=== PATIENT | male | born 1940 | race Caucasian/White ===

== ENCOUNTER 2016-09-05 17:01 | Inpatient (IN) ==
[2016-09-05] MEDS ORDERED: Ipratropium/Albuterol Neb 3 ML IH ONE ×2 (17:09→18:02)
[2016-09-05] MEDS ORDERED: methylPREDNISolone 125 MG/2 ML VIAL IVP ONE (17:09)
--- NOTE | 2016-09-05 17:11 | Emergency Department Note ---
Disposition Clinical Impression: Acute exacerbation of chronic obstructive airways disease Disposition: Admitted As Inpatient Condition: Good Referrals: Tommie Srivastava DO [Primary Care Provider] - Time of Disposition: 18:00 SOB HPI - General Stated Complaint: RONAL Time Seen by Provider: 09/05/16 17:06 Source: patient Mode of arrival: ambulatory Limitations: no limitations Nursing Notes Reviewed: Yes Vital Signs Reviewed: Yes - History of Present Illness 75-year-old with a history of COPD/asthma comes in with increasing shortness of breath since yesterday. Patient is audibly wheezing on arrival. states that she thinks he may have some CHF. Most recent echo was reviewed with EF of 60%. Pt Subjective Complaint: shortness of breath, cough Onset (ago): day(s) (1) Severity: moderate Consistency/Duration: constant Improves with: nothing Worsens with: exertion Known history of: COPD, asthma Associated symptoms: Reports: cough, wheezing Treatment prior to arrival: none Cough present: Yes Cough Description: Involuntary Cough Frequency: Intermittent - Related Data Home Medications Medication Instructions Recorded Confirmed Aspirin 81 mg PO DAILY 12/15/15 04/04/16 Carvedilol 12.5 mg PO BID 12/15/15 04/04/16 Citalopram Hydrobromide 40 mg PO DAILY 12/15/15 04/04/16 [Citalopram HBr] Gabapentin [Neurontin] 300 mg PO TID 12/15/15 04/04/16 Isosorbide MONOnitrate (24 HR) 60 mg PO DAILY 12/15/15 04/04/16 [Imdur] Lisinopril [Zestril] 15 mg PO DAILY 12/15/15 04/04/16 Lovastatin [Mevacor] 20 mg PO DAILY 12/15/15 04/04/16 Oxycodone HCl [Roxicodone 30 MG 30 mg PO QID 12/15/15 04/04/16 Immed Release] Pantoprazole Sodium 40 mg PO DAILY 12/15/15 04/04/16 Albuterol Neb [Proventil Neb] 2.5 mg IH TID PRN 04/04/16 04/04/16 Albuterol Sulfate [Ventolin Hfa] 2 puff IH Q4H PRN 04/04/16 04/04/16 Alprazolam 2 mg PO BID 04/04/16 04/04/16 Beclomethasone Diprop 40mcg [QVAR 1 puff IH BID 04/04/16 04/04/16 40 mcg] Omeprazole [PriLOSEC] 40 mg PO DAILY 04/04/16 04/04/16 Previous Rx's Medication Instructions Recorded Hydralazine HCl 50 mg PO TID #90 tablet 04/04/16 Diazepam [Valium] 5 mg PO TID #15 tablet 04/06/16 PredniSONE 60 mg PO DAILY #18 tablet 04/06/16 Allergies Allergy/AdvReac Type Severity Reaction Status Date / Time tetanus toxoid, adsorbed Allergy Swelling Verified 04/15/16 13:16 of Lip/Tongue/Throat Constitutional: Denies: fever, chills, weakness, weight change Eyes: Denies: eye pain, eye discharge, vision change ENT ED: Denies: ear pain, throat pain, dental pain, hearing loss, epistaxis, congestion, dysphagia Cardiovascular: Denies: chest pain, palpitations, dyspnea on exertion, edema, syncope Respiratory: Reports: cough, dyspnea. Denies: wheezes, hemoptysis, stridor Gastrointestinal: Denies: abdominal pain, nausea, vomiting, diarrhea, constipation, hematemesis, melena, hematochezia Genitourinary: Denies: urgency, dysuria, frequency, hematuria Musculoskeletal: Denies: back pain, neck pain, arthralgia, myalgia Integumentary: Denies: rash, abrasion, lesions Neurological: Denies: headache, weakness, numbness, paresthesias, confusion, abnormal gait, vertigo Psychiatric: Denies: anxiety, depression, suicidal thoughts, homicidal thoughts , auditory hallucinations, visual hallucinations Endocrine: Denies: fatigue Hematological/Lymphatic: Denies: easy bleeding, easy bruising Allergic/Immunologic: Denies: facial swelling, urticaria Past Medical History - Past Medical History Medical history: Reports: asthma, coronary artery disease, hypertension, myocardial infarction, other Surgical history: Reports: cholecystectomy Psychiatric history: Reports: no psych history - Social History Smoking Status: Former smoker Smokeless Tobacco Status: No Alcohol use: Reports: none Drug use: Reports: none Physical Exam - General Limitations: no limitations General appearance: alert, in no apparent distress - Head Head exam: atraumatic, normocephalic, normal inspection - Eye Eye exam: Present: normal appearance, PERRL, EOMI - ENT ENT exam: normal exam, normal oropharynx, mucous membranes moist - Neck Neck exam: Present: normal inspection, full ROM, trachea midline - Chest Chest inspection: Present: normal inspection, symmetric chest wall rise - Respiratory Respiratory exam: Present: wheezes, accessory muscle use, prolonged expiratory phase - Cardiovascular Cardiovascular exam: Present: regular rate, normal rhythm, normal heart sounds - Abdominal Exam Abdominal exam: Present: soft, Non-Tender. Absent: tenderness, distention, guarding, rebound, rigidity - Extremities Exam Extremities exam: Present: normal inspection, full ROM. Absent: tenderness, pedal edema - Expanded Lower Extremity Exam Gait: observed and normal - Back Exam Back exam: Present: normal inspection, full ROM. Absent: tenderness - Neurological Exam Neurological exam: Present: alert, oriented X3 - Psychiatric Psychiatric exam: Present: normal affect, normal mood - Skin Skin exam: Present: warm, dry, intact, normal color Course - Consultations Consultation #1: Discussed with Dr. Roe, admit. Time: 18:03 Vital Signs Respiratory Rate 18 09/05/16 17:16 Blood Pressure 152/77 09/05/16 17:16 O2 Sat by Pulse Oximetry 100 09/05/16 17:16 Temperature 99.0 F 09/05/16 17:29 Pulse Rate 70 09/05/16 17:34 Respiratory Rate 20 09/05/16 17:34 Blood Pressure 140/61 09/05/16 17:34 O2 Sat by Pulse Oximetry 98 09/05/16 17:34 Oxygen Delivery Oxygen Delivery Nasal Cannula Shortness of Breath/Dyspnea - Lab Data Result diagrams: 09/05/16 17:18 09/05/16 17:18 Lab Results 09/05/16 09/05/16 09/05/16 Range/Units 17:18 17:18 17:18 WBC 9.9 (4.3-11.1) K/mcL RBC 3.75 L (4.19-5.50) M/mcL Hgb 10.6 L (12.9-16.9) g/dL Hct 31.6 L (37.5-50.1) % MCV 84.3 (83.0-100.0) fL MCH 28.3 (28.0-33.3) pg MCHC 33.5 (31.6-35.5) g/dL RDW 13.2 (11.5-14.5) % Plt Count 126 L (140-400) K/mcL MPV 8.7 L (9.4-12.4) fL Immature Gran % 0.7 (0-4) % Seg Neutrophils % 77.4 % Lymphocytes % 10.1 % Monocytes % 9.8 % Eosinophils % 1.8 % Basophils % 0.2 % Neutrophils # 7.7 (1.6-8.9) K/mcL Lymphocytes # 1.0 (0.6-4.6) K/mcL Monocytes # 1.0 (0.0-1.3) K/mcL Eosinophils # 0.2 (0.0-0.6) K/mcL Basophils # 0.0 (0.0-0.2) K/mcL PT 12.9 H (9.4-12.1) Seconds INR 1.2 APTT 27.1 (26.0-36.0) Seconds Sodium 140 (136-145) mEq/L Potassium 4.5 (3.5-4.5) mEq/L Chloride 107 (98-109) mEq/L Carbon Dioxide 27 (19-29) mEq/L BUN 15 (8-26) mg/dL Creatinine 1.74 H (0.72-1.25) mg/dL Est GFR ( Amer) 46 L (> 60) Est GFR (Non-Af Amer) 38 L (> 60) BUN/Creatinine Ratio 9 (6-26) Glucose 103 H (70-99) mg/dL Calculated Osmolality 291 (280-300) Calcium 9.1 (8.6-10.8) mg/dL Troponin I (0-0.03) ng/mL B-Natriuretic Peptide (0-100) pg/mL 09/05/16 09/05/16 Range/Units 17:18 17:18 WBC (4.3-11.1) K/mcL RBC (4.19-5.50) M/mcL Hgb (12.9-16.9) g/dL Hct (37.5-50.1) % MCV (83.0-100.0) fL MCH (28.0-33.3) pg MCHC (31.6-35.5) g/dL RDW (11.5-14.5) % Plt Count (140-400) K/mcL MPV (9.4-12.4) fL Immature Gran % (0-4) % Seg Neutrophils % % Lymphocytes % % Monocytes % % Eosinophils % % Basophils % % Neutrophils # (1.6-8.9) K/mcL Lymphocytes # (0.6-4.6) K/mcL Monocytes # (0.0-1.3) K/mcL Eosinophils # (0.0-0.6) K/mcL Basophils # (0.0-0.2) K/mcL PT (9.4-12.1) Seconds INR APTT (26.0-36.0) Seconds Sodium (136-145) mEq/L Potassium (3.5-4.5) mEq/L Chloride (98-109) mEq/L Carbon Dioxide (19-29) mEq/L BUN (8-26) mg/dL Creatinine (0.72-1.25) mg/dL Est GFR ( Amer) (> 60) Est GFR (Non-Af Amer) (> 60) BUN/Creatinine Ratio (6-26) Glucose (70-99) mg/dL Calculated Osmolality (280-300) Calcium (8.6-10.8) mg/dL Troponin I 0.01 (0-0.03) ng/mL B-Natriuretic Peptide 241 H (0-100) pg/mL - EKG Data EKG attestation: Yes I reviewed and interpreted this EKG. EKG shows normal: Reports: sinus rhythm Rate: Reports: normal Rhythm: Reports: NSR Interpretation: Reports: no acute changes
[2016-09-05 17:30] LABS: Basophils % 0.2 %; Eosinophils # 0.2 K/mcL (0.0-0.6); Eosinophils % 1.8 %; Hematocrit 31.6 % (37.5-50.1); Hemoglobin 10.6 g/dL (12.9-16.9); INR 1.2; Immature Granulocytes % 0.7 % (0-4); Lymphocytes % 10.1 %; Mean Corpuscular HGB Conc 33.5 g/dL (31.6-35.5); Mean Corpuscular Hemoglobin 28.3 pg (28.0-33.3); Mean Corpuscular Volume 84.3 fL (83.0-100.0); Mean Platelet Volume 8.7 fL (9.4-12.4); Monocytes % 9.8 %; Neutrophils # 7.7 K/mcL (1.6-8.9); Platelet Count 126 K/mcL (140-400); Prothrombin Time 12.9 Seconds (9.4-12.1); Red Blood Count 3.75 M/mcL (4.19-5.50); Red Cell Distribution Width 13.2 % (11.5-14.5); Segmented Neutrophils % 77.4 %
[2016-09-05 17:33] LABS: Activated Partial Thrombo Time 27.1 Seconds (26.0-36.0)
[2016-09-05 17:37] LABS: Calcium 9.1 mg/dL (8.6-10.8); Potassium 4.5 mEq/L (3.5-4.5)
[2016-09-05] MEDS ORDERED: Naloxone 0.4 MG/ML INJ IVP PRN (20:24)
[2016-09-05] MEDS ORDERED: Acetaminophen 325 MG TABLET PO PRN (20:24)
[2016-09-05] MEDS ORDERED: Ondansetron ODT 4 MG TAB.RAPDIS SL PRN (20:24)
[2016-09-05] MEDS ORDERED: Albuterol 2.5 MG/3 ML NEBULIZER IH PRN (20:29)
[2016-09-05] MEDS ORDERED: 0.9 % Sodium Chloride 1,000 ML IVC SCH ×2 (20:30→22:15)
--- NOTE | 2016-09-05 20:38 | Internal Med History&Physical ---
Date of Encounter: 09/05/16 Time of Encounter: 20:00 Assessment and Plan (1) Acute exacerbation of chronic obstructive airways disease Current visit: Yes Status: Acute Patient had pulmonary function test performed in 2014 which showed obstructive pattern with significant bronchodilator response, indicating that he has asthma rather than COPD We will continue to support with supplemental oxygen, steroids at 60q6hr, breathing treatments as scheduled (2) Acute bronchitis Current visit: Yes Status: Acute We will start patient on Levaquin 500 milligrams by mouth daily Likely cause of his mild hemoptysis due to severe cough Support with antitussives Qualifiers: Qualified Code(s): J20.9 - Acute bronchitis, unspecified (3) HTN (hypertension) Current visit: No Status: Chronic Continue with home dose of lisinopril, Coreg, hydralazine Monitor vitals closely Qualifiers: Hypertension type: essential hypertension Qualified Code(s): I10 - Essential (primary) hypertension (4) Anemia of chronic disease Current visit: Yes Status: Chronic He is close to his baseline hemoglobin around 11, no indication for transfusion at this time Possible secondary to chronic kidney disease Obtain iron panel including ferritin tomorrow morning (5) CKD (chronic kidney disease) stage 3, GFR 30-59 ml/min Current visit: No Status: Chronic Creatinine at presentation was 1.74, baseline is around 1.5 therefore he does not meet criteria for LEE ANN We will continue with his lisinopril and hydrate gently with 60 ml/hr for 12 hours (6) CAD (coronary artery disease) Current visit: No Status: Chronic Continue patient on home Coreg, Imdur, aspirin and lisinopril Qualifiers: Coronary Disease-Associated Artery/Lesion type: [place] artery [place] vs. transplanted heart: [place] heart Associated angina: angina presence unspecified Qualified Code(s): I25.10 - Atherosclerotic heart disease of [place] coronary artery without angina pectoris (7) DVT prophylaxis Current visit: Yes Status: Acute Heparin 5000 units subcutaneous twice a day We will monitor for additional episodes of hemoptysis while on heparin Internal Medicine - H&P: HPI Chief complaint: shortness of breath Admitted From: Home Plans for Post Hospital Care: Home History of present illness: Mr. Thrasher is a 75 year old male who presents with shortness of breath started when he woke up yesterday has been worsening. He states that the shortness of breath is worse with exertion and is minimally relieved with his rescue inhalers. He states that he has been feeling sick over the past 4-5 days has been having productive cough with green sputum, and has upper abdominal pain during coughing episodes. He also notes minimal blood-tinged sputum that started today, and reports having an "esophageal tear" roughly 1 year ago when he was in [place] which required surgical intervention. Patient's significant other is at bedside and confirms that there is questionable history of congestive heart failure. He did have a echocardiogram done last March which showed preserved EF 60% with mild diastolic dysfunction but he is not on any diuretics at home. He also has a history of CAD stage III but has not seen his orange picker, Dr. Lezama in a few years. He admits that his appetite has been poor and he has had associated nausea and vomiting over the past several days. Past Med Surg Social Fam HX - Past Medical History Medical history: asthma, coronary artery disease, hypertension, myocardial infarction, other Psychiatric history: no psych history - Past Surgical History Surgical History: cholecystectomy - Social History Smoking Status: Former smoker Smokeless Tobacco Status: No Alcohol use: none Drug use: none - Family History Brother Adopted: No Age: 63 Living Status: Hx Family Cancer: Yes (liver with mets) Internal Medicine - H&P: Meds Aspirin 81 mg PO DAILY 12/15/15 [History] Carvedilol 12.5 mg PO BID 12/15/15 [History] Citalopram Hydrobromide [Citalopram HBr] 40 mg PO DAILY 12/15/15 [History] Gabapentin [Neurontin] 300 mg PO TID 12/15/15 [History] Isosorbide MONOnitrate (24 HR) [Imdur] 60 mg PO DAILY 12/15/15 [History] Lisinopril [Zestril] 15 mg PO DAILY 12/15/15 [History] Lovastatin [Mevacor] 20 mg PO DAILY 12/15/15 [History] Oxycodone HCl [Roxicodone 30 MG Immed Release] 30 mg PO QID 12/15/15 [History] Pantoprazole Sodium 40 mg PO DAILY 12/15/15 [History] Albuterol Neb [Proventil Neb] 2.5 mg IH TID PRN 04/04/16 [History] Albuterol Sulfate [Ventolin Hfa] 2 puff IH Q4H PRN 04/04/16 [History] Alprazolam 2 mg PO BID 04/04/16 [History] Beclomethasone Diprop 40mcg [QVAR 40 mcg] 1 puff IH BID 04/04/16 [History] Hydralazine HCl 50 mg PO TID #90 tablet 04/04/16 [Rx] Omeprazole [PriLOSEC] 40 mg PO DAILY 04/04/16 [History] PredniSONE 60 mg PO DAILY #18 tablet 04/06/16 [Rx] Allergies tetanus toxoid, adsorbed Allergy (Verified 04/15/16 13:16) Swelling of Lip/Tongue/Throat All Systems PM: A 10-system review of systems was performed and is negative for pertinent findings except as documented above in the HPI. - Constitutional Constitutional: no chills, no fever(s), no night sweats - EENT Eyes: no change in vision, no discharge, no photophobia Ears: no ear discharge, no ear pain, no tinnitus Nose, mouth and throat: no dysphagia, no nasal discharge, no neck pain, no sore throat - Cardiovascular Cardiovascular ROS IM: dyspnea, dyspnea on exertion, edema, irregular heart rhythm, no chest pain, no diaphoresis, no lightheadedness, no palpitations, no syncope - Respiratory Respiratory: cough, hemoptysis, dyspnea on exertion, wheezing, excessive phlegm production, change in phlegm color, pain with cough, no dyspnea - Gastrointestinal Gastrointestinal: abdominal pain, nausea, vomiting, no diarrhea, no hematemesis , no hematochezia, no melena - Genitourinary Genitourinary ROS male: no urinary frequency, no urinary hesitancy - Musculoskeletal Musculoskeletal ROS IM: back pain (chronic), no numbness, no tingling - Integumentary Integumentary IM: no rash, no unusual bruising - Neurological Neurological ROS: no confusion, no convulsions, no focal weakness, no numbness, no tingling, no tremor(s) - Hematologic/Lymphatic Hematologic/Lymphatic: no easy bruising - Constitutional Vitals: Temp Pulse Resp BP Pulse Ox 99.0 F 71 18 154/76 98 09/05/16 17:29 09/05/16 18:15 09/05/16 19:01 09/05/16 19:01 09/05/16 18:15 General appearance: Present: cooperative, no acute distress, obese, answers questions appropriately - Head Head exam: Present: atraumatic, normocephalic - Eye Eye exam: Present: PERRL, conjuntiva pink, sclera anicteric - Neck Neck exam general surgery: Present: supple, trachea midline. Absent: lymphadenopathy - Respiratory Respiratory exam: Present: wheezes (diffusely). Absent: accessory muscle use, rales, rhonchi - Cardiovascular Cardiovascular exam: Present: RRR, +S1, +S2. Absent: diastolic murmur, gallop, rubs, systolic murmur - GI/Abdominal GI/Abdominal exam: Present: normal bowel sounds, soft, tenderness (epigastric), no peritoneal signs. Absent: distended, guarding, rigid - Extremities Exam Extremities exam: Present: tenderness, warm, radial pulses palpable and symetrical. Absent: calf tenderness, cyanotic, pedal edema (he is wearing compression socks) - Neurological Exam Neurological exam: Present: alert, no focal deficits. Absent: facial droop, speech deficit - Skin Skin exam: Present: dry, intact Internal Med - H&P Results - Labs CBC & Chem 7: 09/05/16 17:18 09/05/16 17:18
[2016-09-05] MEDS: hydrALAZINE 25 MG TABLET PO SCH (21:29)
[2016-09-05] MEDS: *HR* OxyCODONE Immed Rel 15 MG TABLET PO SCH (21:30)
[2016-09-05] MEDS: ALPRAZolam 1 MG TABLET PO SCH (21:30)
[2016-09-05] MEDS: Gabapentin 300 MG CAPSULE PO SCH (21:30)
[2016-09-05] MEDS ORDERED: Benzonatate 100 MG CAPSULE PO PRN (22:20)
[2016-09-05] MEDS: Beclomethasone 40mcg MDI IH SCH (23:13)
[2016-09-05] MEDS: Budesonide/Formoterol 160/4.5 MDI IH SCH (23:14)
[2016-09-05] MEDS: Ipratropium/Albuterol Neb 3 ML IH SCH (23:14)
[2016-09-06] MEDS ORDERED: methylPREDNISolone 125 MG/2 ML VIAL IVP SCH
[2016-09-06] MEDS: methylPREDNISolone 125 MG/2 ML VIAL IVP SCH ×5 (00:21→22:41)
--- NOTE | 2016-09-06 03:51 | Event Note ---
Date of Encounter: 09/06/16 Time of Encounter: 03:50 Patient seen and examined with medical driver. Acute bronchitis and acute asthma exacerbation. IV steroids [id number] breathing treatments and Levaquin. He is not requiring any oxygen. observation addition
[2016-09-06] MEDS: Ipratropium/Albuterol Neb 3 ML IH SCH ×6 (04:36→23:39)
[2016-09-06] MEDS ORDERED: Pantoprazole 40 MG VIAL IVP SCH (06:30)
[2016-09-06 06:34] LABS: Hematocrit 32.8 % (37.5-50.1); Hemoglobin 10.5 g/dL (12.9-16.9); Immature Granulocytes % 0.7 % (0-4); Lymphocytes # 0.4 K/mcL (0.6-4.6); Lymphocytes % 4.9 %; Mean Corpuscular Hemoglobin 27.6 pg (28.0-33.3); Mean Corpuscular Volume 86.3 fL (83.0-100.0); Mean Platelet Volume 9.3 fL (9.4-12.4); Monocytes # 0.1 K/mcL (0.0-1.3); Monocytes % 0.6 %; Neutrophils # 7.8 K/mcL (1.6-8.9); Platelet Count 120 K/mcL (140-400); Red Cell Distribution Width 13.4 % (11.5-14.5); Segmented Neutrophils % 93.8 %
[2016-09-06 06:48] LABS: Albumin 3.6 g/dL (3.5-5.0); Albumin/Globulin Ratio 1.1 (1.1-2.2); Bilirubin,Total 0.3 mg/dL (0.2-1.2); Calcium 8.6 mg/dL (8.6-10.8); Globulin 3.3 g/dL (2.4-3.5); Potassium 5.5 mEq/L (3.5-4.5); Total Protein 6.9 g/dL (6.0-8.3)
[2016-09-06] MEDS ORDERED: Aspirin 81 MG TAB.CHEW PO SCH (09:00)
[2016-09-06] MEDS ORDERED: levoFLOXacin 500 MG TABLET PO SCH (09:00)
[2016-09-06] MEDS: Gabapentin 300 MG CAPSULE PO SCH (09:20)
[2016-09-06] MEDS: *HR* OxyCODONE Immed Rel 15 MG TABLET PO SCH ×2 (09:20→12:54)
[2016-09-06] MEDS: ALPRAZolam 1 MG TABLET PO SCH ×2 (09:20→21:24)
[2016-09-06] MEDS: Isosorbide MONOnitrate (24 HR) 60 MG TAB.ER.24H PO SCH (09:20)
[2016-09-06] MEDS: hydrALAZINE 25 MG TABLET PO SCH ×3 (09:21→21:23)
[2016-09-06] MEDS: *HR* Heparin 5,000 UNIT/ML VIAL SQ SCH ×2 (09:21→18:28)
[2016-09-06] MEDS: Budesonide/Formoterol 160/4.5 MDI IH SCH (10:56)
[2016-09-06] MEDS: Beclomethasone 40mcg MDI IH SCH (10:57)
--- NOTE | 2016-09-06 13:04 | Nephrology Consult Note ---
Date of Encounter: 09/06/16 Time of Encounter: 13:02 Assessment and Plan (1) Acute kidney failure, unspecified Current Visit: Yes Status: Acute Patient has acute kidney injury superimposed on stage III chronic kidney disease. This is in the setting of acute asthmatic bronchitis nausea and vomiting at home as well as decreased oral intake. He continues to take lisinopril while he was sick. I suspect that his AK eyes related to volume depletion in the setting of an acute illness. I would recommend leaving him off the lisinopril and providing him with IV fluids. He does have some difficulty in emptying his bladder so we will check a renal ultrasound as well as postvoid residual of the bladder. Nephrotoxins should be avoided. Patient does have underlying stage III chronic kidney disease related to hypertension and nephrosclerosis. Qualifiers: Acute renal failure type: unspecified Qualified Code(s): N17.9 - Acute kidney failure, unspecified (2) Acute bronchitis Current Visit: Yes Status: Acute Qualifiers: Qualified Code(s): J20.9 - Acute bronchitis, unspecified (3) CKD (chronic kidney disease) stage 3, GFR 30-59 ml/min Current Visit: No Status: Chronic (4) HTN (hypertension) Current Visit: No Status: Chronic Qualifiers: Hypertension type: essential hypertension Qualified Code(s): I10 - Essential (primary) hypertension History of Present Illness - History of Present Illness This is a 75-year-old male with a history of stage III chronic kidney disease. Patient was admitted after a one-week history of shortness of breath cough and sputum production. He has been diagnosed with asthma in acute bronchitis. He has been noted to have a worsening of his serum creatinine since she has been here in the hospital. Patient reports that over the past week or so he has had nausea and vomiting and decreased oral intake at home. He denies any diarrhea. He has difficulty emptying his bladder at times. He denies taking any nonsteroidal anti-inflammatory agents. He has been on lisinopril at home. He has a diagnosis of CK D3 in the setting of hypertension and nephrosclerosis. The lisinopril and placed on hold since he has been admitted to the hospital. Past Med Surg Social Fam HX - Past Medical History Medical history: asthma, coronary artery disease, hypertension, myocardial infarction, other Psychiatric history: no psych history - Past Surgical History Surgical History: cholecystectomy - Social History Smoking Status: Former smoker Smokeless Tobacco Status: No Alcohol use: none Drug use: none - Family History Brother Adopted: No Age: 65 Living Status: Hx Family Cancer: Yes (liver with mets) Medications and Allergies Aspirin 81 mg PO DAILY 12/15/15 [History] Carvedilol 12.5 mg PO BID 12/15/15 [History] Citalopram Hydrobromide [Citalopram HBr] 40 mg PO DAILY 12/15/15 [History] Gabapentin [Neurontin] 300 mg PO TID 12/15/15 [History] Isosorbide MONOnitrate (24 HR) [Imdur] 60 mg PO DAILY 12/15/15 [History] Lisinopril [Zestril] 15 mg PO DAILY 12/15/15 [History] Lovastatin [Mevacor] 20 mg PO DAILY 12/15/15 [History] Oxycodone HCl [Roxicodone 30 MG Immed Release] 30 mg PO QID 12/15/15 [History] Pantoprazole Sodium 40 mg PO DAILY 12/15/15 [History] Albuterol Neb [Proventil Neb] 2.5 mg IH TID PRN 04/04/16 [History] Albuterol Sulfate [Ventolin Hfa] 2 puff IH Q4H PRN 04/04/16 [History] Alprazolam 2 mg PO BID 04/04/16 [History] Beclomethasone Diprop 40mcg [QVAR 40 mcg] 1 puff IH BID 04/04/16 [History] Hydralazine HCl 50 mg PO TID #90 tablet 04/04/16 [Rx] Omeprazole [PriLOSEC] 40 mg PO DAILY 04/04/16 [History] PredniSONE 60 mg PO DAILY #18 tablet 04/06/16 [Rx] Allergies tetanus toxoid, adsorbed Allergy (Verified 04/15/16 13:16) Swelling of Lip/Tongue/Throat Review of Systems Constitutional: as per HPI, weakness Eyes: bilateral: blurred vision (patient denies), diplopia (patient denies) Nose, mouth and throat: no dizziness, no headache(s) Cardiovascular: as per HPI, dyspnea, dyspnea on exertion, edema Respiratory: as per HPI, cough, dyspnea, dyspnea on exertion Gastrointestinal: as per HPI, nausea, vomiting Genitourinary Male: as per HPI Musculoskeletal: no muscle weakness, no numbness Integumentary: no hirsutism, no striae Neurological: weakness Psychiatric: no depression, no difficulty concentrating Endocrine: as per HPI Exam - Vital Signs Vital signs: Initial Vital Signs Resp BP Pulse Ox 18 152/77 100 09/05/16 17:16 09/05/16 17:16 09/05/16 17:16 Vital Signs - Last 8 Hours Temp Pulse Resp BP Pulse Ox 09/06/16 11:34 97.5 F L 60 16 125/70 96 09/06/16 10:57 16 83 L 09/06/16 09:20 91 L 09/06/16 07:22 97.6 F 60 16 129/72 91 L Intake and Output 09/05/16 09/06/16 09/06/16 23:59 07:59 15:59 Intake Total 240 / 240 Balance 240 / 240 Intake: Oral 240 / 240 Other: Meal Breakfast Percent of Meal Consumed 100% Weight 99.1 kg Patient Weight 09/06/16 23:59 Weight 99.1 kg - General Appearance Exam: Patient is alert and oriented. He is in no acute distress. He is afebrile. Blood pressure 125/70. Neck is supple. Carotids are bruits. Lung sounds with bilateral expiratory wheezing. Heart regular rate and rhythm with a 2/6 ejection murmur. Abdomen shows normal bowel sounds bruits masses or megaly or tenderness. Lower extremities show no significant edema. Results - Lab Results 09/06/16 06:12 09/06/16 06:12 Most recent lab results Calcium 8.6 mg/dL (8.6-10.8) 09/06/16 06:12 Consult Discharge Plan - Plan
[2016-09-06] MEDS ORDERED: Acetaminophen 325 MG TABLET PO PRN (13:10)
[2016-09-06] MEDS ORDERED: *HR* OxyCODONE Immed Rel 15 MG TABLET PO PRN (13:14)
[2016-09-06] MEDS ORDERED: 0.9 % Sodium Chloride 1,000 ML IVC SCH (13:15)
--- NOTE | 2016-09-06 16:21 | Internal Med Progress Note ---
Date of Encounter: 09/06/16 Time of Encounter: 10:50 - Assessment and plan (1) Acute bronchitis with asthma with acute exacerbation Current Visit: Yes Status: Acute Assessment and plan: Acute asthma extubation. Patient had previous PFTs showing good postbronchodilator response suggestive of asthma) COPD. Will treat patient as acute asthma exacerbation with inhaled bronchodilator nebs, IV steroids. O2 supplementation to keep sats greater than 90%. Moderate risk for complications (2) Acute bronchitis Current Visit: Yes Status: Acute Assessment and plan: On levofloxacin. Will send respiratory panel. Qualifiers: Bronchitis organism: unspecified organism Qualified Code(s): J20.9 - Acute bronchitis, unspecified (3) DVT prophylaxis Current Visit: Yes Status: Acute Assessment and plan: With subcutaneous heparin (4) Anemia of chronic disease Current Visit: Yes Status: Chronic Assessment and plan: Stable hemoglobin levels. (5) CAD (coronary artery disease) Current Visit: No Status: Chronic Assessment and plan: On aspirin, carvedilol and Zocor Qualifiers: Coronary Disease-Associated Artery/Lesion type: nikolai artery [place] vs. transplanted heart: nikolai heart Associated angina: angina presence unspecified Qualified Code(s): I25.10 - Atherosclerotic heart disease of nikolai coronary artery without angina pectoris (6) CKD (chronic kidney disease) stage 3, GFR 30-59 ml/min Current Visit: No Status: Chronic Assessment and plan: Renal function slightly worsened today. Consulted nephrology. Will follow recommendations. Continue to monitor renal function (7) HTN (hypertension) Current Visit: No Status: Chronic Assessment and plan: Well-controlled Qualifiers: Hypertension type: essential hypertension Qualified Code(s): I10 - Essential (primary) hypertension - Subjective Interval history: Patient is feeling better today. Still has wheezing and shortness of breath but much improved compared to yesterday. Denies any chest pain. No nausea or vomiting. - Constitutional Vitals: Temp Pulse Resp BP Pulse Ox 97.7 F 71 16 108/63 91 L 09/06/16 15:23 09/06/16 15:23 09/06/16 15:23 09/06/16 15:23 09/06/16 15:23 General appearance: Present: cooperative, mild distress, A&O X 3, obese, answers questions appropriately - Respiratory Respiratory exam: Present: CTAB, wheezes. Absent: accessory muscle use, rales, rhonchi - Cardiovascular Cardiovascular exam: Present: RRR, +S1, +S2. Absent: diastolic murmur, gallop, rubs, systolic murmur - GI/Abdominal GI/Abdominal exam: Present: normal bowel sounds, soft, no peritoneal signs. Absent: distended, tenderness - Extremities Exam Extremities exam: Present: warm, radial pulses palpable and symetrical. Absent : calf tenderness, cyanotic, pedal edema - Neurological Exam Neurological exam: Present: alert, oriented X3, no focal deficits. Absent: facial droop, speech deficit Internal Medicine: Result - Labs CBC & Chem 7: 09/06/16 06:12 09/06/16 06:12 Labs: Short CBC 09/06/16 Range/Units 06:12 WBC 8.3 (4.3-11.1) K/mcL Hgb 10.5 L (12.9-16.9) g/dL Hct 32.8 L (37.5-50.1) % Plt Count 120 L (140-400) K/mcL Neutrophils # 7.8 (1.6-8.9) K/mcL BMP 09/06/16 06:12 Sodium 139 Potassium 5.5 H D Chloride 107 Carbon Dioxide 25 BUN 25 D Creatinine 2.32 H Glucose 174 H Calcium 8.6 Liver Function 09/06/16 Range/Units 06:12 Total Bilirubin 0.3 (0.2-1.2) mg/dL AST 16 (5-34) Units/L ALT 13 (0-55) Units/L Alkaline Phosphatase 51 (38-126) Units/L Albumin 3.6 (3.5-5.0) g/dL - ABG Interpretation ABG results: PT/INR, D-dimer PT 12.9 Seconds (9.4-12.1) H 09/05/16 17:18 Consult Discharge Plan - Plan Referrals: Tommie Srivastava DO [Primary Care Provider] - - Attending Attestation This document has been at least partially created by [employer] recognition technology by Dr. Rodarte. Errors in grammar, wording or other phrases may exist. If errors are found after the documentation is signed, they will be addressed individually in the addendum section of this document when appropriate.
--- NOTE | 2016-09-06 18:21 | Electrocardiograph Report ---
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
[2016-09-06] MEDS ORDERED: Gabapentin 300 MG CAPSULE PO SCH (21:00)
[2016-09-06] MEDS ORDERED: Furosemide 40 MG/4 ML VIAL IVP ONE (23:23)
[2016-09-07 01:07] LABS: ABG HCO3 24.4 mEQ/L (21-27); ABG Oxygen Saturation 95 % (95-98); ABG PO2 97 mmHg (85-104); ABG TCO2 26.5 mEq/L (20-26)
[2016-09-07 01:09] LABS: Blood Gas FiO2 100 %
[2016-09-07 01:10] LABS: ABG PCO2 70 mmHg (35-45); ABG PH 7.15 pH Units (7.32-7.45)
[2016-09-07] MEDS ORDERED: Lacri-Lube 3.5 GM TUBE BOTH EYES PRN (01:45)
[2016-09-07] MEDS ORDERED: *HR* Midazolam HCl 2 MG/2 ML VIAL IVP ONE (01:45)
[2016-09-07 02:27] LABS: Basophils % 0.1 %; Hematocrit 31.8 % (37.5-50.1); Hemoglobin 10.1 g/dL (12.9-16.9); Immature Granulocytes % 1.2 % (0-4); Lymphocytes # 0.2 K/mcL (0.6-4.6); Lymphocytes % 1.1 %; Mean Corpuscular HGB Conc 31.8 g/dL (31.6-35.5); Mean Corpuscular Volume 88.1 fL (83.0-100.0); Mean Platelet Volume 9.5 fL (9.4-12.4); Monocytes # 0.3 K/mcL (0.0-1.3); Monocytes % 1.7 %; Neutrophils # 15.6 K/mcL (1.6-8.9); Platelet Count 121 K/mcL (140-400); Red Blood Count 3.61 M/mcL (4.19-5.50); Red Cell Distribution Width 13.5 % (11.5-14.5); Segmented Neutrophils % 95.9 %
[2016-09-07 02:32] LABS: INR 1.2
[2016-09-07] MEDS: 0.9 % Sodium Chloride 1,000 ML IVC SCH ×3 (02:36→15:37)
[2016-09-07] MEDS: FentaNYL (PF) 1,000 MCG in 0.9 % Sodium Chloride 80 ML IVC SCH ×4 (02:37→23:24)
[2016-09-07 02:40] LABS: VBG HCO3 25.1 mEq/L (21-27); VBG PH 7.23 pH Units (7.32-7.42)
[2016-09-07 02:45] LABS: Albumin 3.5 g/dL (3.5-5.0); Albumin/Globulin Ratio 1.1 (1.1-2.2); Bilirubin,Total 0.6 mg/dL (0.2-1.2); Calcium 8.2 mg/dL (8.6-10.8); Globulin 3.3 g/dL (2.4-3.5); Potassium 6.4 mEq/L (3.5-4.5); Total Protein 6.8 g/dL (6.0-8.3)
[2016-09-07 02:50] LABS: ABG Base Excess -2.5 mEq/L (-2.0 to 3.0); ABG HCO3 23.2 mEQ/L (21-27); ABG Oxygen Saturation 98 % (95-98); ABG PCO2 43 mmHg (35-45); ABG PH 7.34 pH Units (7.32-7.45); ABG PO2 109 mmHg (85-104); ABG TCO2 24.5 mEq/L (20-26)
[2016-09-07 02:51] LABS: Blood Gas FiO2 50 %; Blood Gas PEEP 5 cm H2O; Blood Gas Respiration Rate 16; Blood Gas VT 600 cc
[2016-09-07 02:54] LABS: Platelet Estimate Slight Decrease (Normal)
[2016-09-07] MEDS ORDERED: Albuterol 2.5 MG/3 ML NEBULIZER IH ONE (03:45)
[2016-09-07] MEDS ORDERED: Insulin Regular, Human 100 UNIT/ML IV ONE (03:46)
[2016-09-07] MEDS ORDERED: *HR* Dextrose 50 % in Water (Syg) 50 ML SYRINGE IVP ONE (03:47)
[2016-09-07] MEDS ORDERED: 0.9 % Sodium Chloride 1,000 ML IVC ONE (03:48)
[2016-09-07] MEDS: Ipratropium/Albuterol Neb 3 ML IH SCH ×6 (04:04→23:28)
[2016-09-07 04:32] LABS: Basophils % 0.1 %; Hematocrit 29.1 % (37.5-50.1); Hemoglobin 9.4 g/dL (12.9-16.9); Immature Granulocytes % 1.1 % (0-4); Lymphocytes # 0.6 K/mcL (0.6-4.6); Mean Corpuscular HGB Conc 32.3 g/dL (31.6-35.5); Mean Corpuscular Volume 86.6 fL (83.0-100.0); Mean Platelet Volume 9.3 fL (9.4-12.4); Monocytes # 0.7 K/mcL (0.0-1.3); Monocytes % 3.9 %; Neutrophils # 16.6 K/mcL (1.6-8.9); Platelet Count 140 K/mcL (140-400); Red Blood Count 3.36 M/mcL (4.19-5.50); Red Cell Distribution Width 13.3 % (11.5-14.5); Segmented Neutrophils % 91.9 %
--- NOTE | 2016-09-07 04:39 | Event Note ---
Date of Encounter: 09/07/16 Time of Encounter: 03:00 A rapid response was called for unresponsiveness. On arrival and the patient was lethargic, unresponsive, pupils were pinpoint. Prior to my arrival he received 0.4 mg of Narcan. He was being ventilated by bag and mask and maintaining an oxygen saturation in the mid 90s. His breath sounds or gurgling and he had bilateral expiratory wheezes. He had began to vomit into the mask and this was suctioned from his oropharynx. He was given an additional dose of 0.8 mg of Narcan with minimal arousals and response. He continued to vomit. A stat ABG was drawn and showed a pH of 7.15 and CO2 of 70 consistent with acute hypercarbic respiratory failure and respiratory acidosis. At this point the patient was not a candidate for non-invasive positive pressure ventilation due to altered mental status and continues vomiting. A decision was made to intubate the patient. He was intubated and and placed on mechanical ventilation. A procedure note was documented separately. Post intubation per my review chest x-ray showed ET tube in good position and bibasilar atelectasis versus infiltrates and possible left pleural effusion. Postintubation on exam the patient is sedated in no acute distress, breathing with the ventilator. Head is atraumatic. Pupils equal and round conjunctivae anicteric. Heart regular rate and rhythm S1-S2 no murmurs rubs or gallops; lungs with good air entry bilaterally and expiratory wheezes. Abdomen obese soft nontender nondistended. Extremities with no edema clubbing or cyanosis. Skin with no open wounds noted no rashes. Assessment and plan: Patient presented with shortness of breath felt to be secondary to acute exacerbation of COPD he received treatment with systemic steroids, inhaled bronchodilators and IV antibiotics. In spite of this his condition declined and he developed acute hypercarbic respiratory failure and acute metabolic encephalopathy and required mechanical ventilation. For COPD exacerbation we will continue with intravenous steroids, continue with IV Levaquin and add Zosyn to 2 high likelihood of aspiration given his altered mental status and intractable vomiting. For acute respiratory failure we will continue with mechanical ventilation assist control, with tidal volume of 600 mL respiratory rate of 16, FiO2 50% and titrate down to maintain oxygen saturation above 94%. We will repeat ABG in 2 hours. We will provide sedation with fentanyl and Versed. NG tube to suction. Weaning trial in the morning. For acute kidney injury and will treat the patient with IV fluids. Avoid nephrotoxins. For hyperkalemia will use insulin and dextrose, we will start normal saline IV. We will treat the patient with Kayexalate by NG tube. For DVT prophylaxis we will use heparin subcutaneous. The patient remains in a critical condition and there is high probability of emergent and significant clinical decompensation with potential impairment of organ function including cardiovascular system and respiratory system. I have performed 55 minutes of critical care time which involved decision making of high complexity to evaluate, manipulate, and support vital organ system, in order to prevent further life threatening decline. The time involved in the performance of any procedures was not counted toward critical care time and will be billed separately. Critical care time was spent evaluating the patient, reviewing telemetry tracing, imaging studies and laboratory data, ventilator management, ordering medications and reevaluating clinically and by laboratory testing for response to treatment.
[2016-09-07] MEDS: Piperacillin/Tazobactam 3.375 GM in D5% in Water (Mini-Bag+) 100 ML IVPB SCH ×2 (04:44→15:39)
[2016-09-07] MEDS: Lacri-Lube 3.5 GM TUBE BOTH EYES SCH ×6 (04:46→23:55)
--- NOTE | 2016-09-07 04:47 | Event Note ---
Date of Encounter: 09/07/16 Time of Encounter: 01:00 Endotracheal Intubation Date: 09/07/2016 Time: 1:00 a.m. Indication: Acute hypercarbic respiratory failure Attending: Bill Burk MD A time-out was completed verifying correct patient, procedure, site, positioning , and special equipment if applicable. The patient was placed in a flat position. Sedation was obtained using Versed 2mg, and additionally with Etomidate 30mg. Paralysis was obtained by administering 20 mg of rocuronium. The patient was easily ventilated using an ambu bag. The [employer]/ MAC 4 BLADE was used and inserted into the oropharynx and vomitus was suctioned from the oropharynx, at which time there was a Grade 1 view of the vocal cords. A 7.5-turkish endotracheal tube was inserted and visualized going through the vocal cords. The stylette was removed. Colorimetric change was visualized on the CO2 meter. Breath sounds were heard in both lung mcelroy equally. The endotracheal tube was placed at 22 cm, measured at the teeth and secured in place. The endotracheal tube was connected to the ventilator. A chest x-ray was ordered to assess for pneumothorax and verify endotrachealtube placement. I have personally reviewed the chest x-ray and found the endotracheal tube to be in adequate position. Estimated Blood Loss: 1ml The patient tolerated the procedure well and there were no complications.
[2016-09-07 04:48] LABS: Albumin 3.3 g/dL (3.5-5.0); Albumin/Globulin Ratio 1.1 (1.1-2.2); Bilirubin,Total 0.5 mg/dL (0.2-1.2); Calcium 8.2 mg/dL (8.6-10.8); Potassium 5.8 mEq/L (3.5-4.5); Total Protein 6.3 g/dL (6.0-8.3)
[2016-09-07] MEDS: Pantoprazole 40 MG VIAL IVPB SCH (05:18)
[2016-09-07] MEDS: methylPREDNISolone 125 MG/2 ML VIAL IVP SCH ×4 (05:18→23:54)
[2016-09-07] MEDS: *HR* Heparin 5,000 UNIT/ML VIAL SQ SCH ×2 (05:20→21:04)
[2016-09-07 05:51] LABS: ABG Base Excess -0.2 mEq/L (-2.0 to 3.0); ABG HCO3 24.8 mEQ/L (21-27); ABG Oxygen Saturation 94 % (95-98); ABG PCO2 41 mmHg (35-45); ABG PH 7.39 pH Units (7.32-7.45); ABG PO2 72 mmHg (85-104); ABG TCO2 26.1 mEq/L (20-26)
[2016-09-07 05:54] LABS: Blood Gas FiO2 40 %; Blood Gas PEEP 5 cm H2O; Blood Gas Respiration Rate 16; Blood Gas VT 600 cc
[2016-09-07] MEDS ORDERED: *HR* Midazolam HCl 2 MG/2 ML VIAL IV ONE (08:00)
[2016-09-07] MEDS ORDERED: *HR* Rocuronium Bromide 100 MG/10 ML VIAL IVC ONE (08:00)
[2016-09-07] MEDS ORDERED: *HR* Etomidate 40 MG/20 ML VIAL IVP ONE (08:00)
[2016-09-07] MEDS: Aspirin Enteric Coated 81 MG Tablet PO SCH (08:19)
[2016-09-07] MEDS: Isosorbide MONOnitrate (24 HR) 60 MG TAB.ER.24H PO SCH (08:20)
[2016-09-07] MEDS: Chlorhexidine Rinse 15 ML MOUTHWASH MM SCH ×2 (08:20→21:00)
[2016-09-07] MEDS: hydrALAZINE 25 MG TABLET PO SCH ×3 (08:20→21:01)
[2016-09-07] MEDS ORDERED: levoFLOXacin 500 MG TABLET PO SCH (09:00)
--- NOTE | 2016-09-07 09:05 | Nephrology Progress Note ---
Date of Encounter: 09/07/16 Time of Encounter: 08:10 - Assessment and Plan (1) Acute kidney failure, unspecified Current Visit: Yes Status: Acute LEE ANN/CKD 3 r/t HTN and nephrosclerosis. In setting of acute asthmatic bronchitis , acute illness, vomiting with decreased oral intake. Renal fct worsening. No documented urine output for yesterday. Today urine output 750 cc. Renal US essentially negative. Hyperkalemic 6.4 and noted rec'd Kaexylate 60 gm, repeat K + pending. HD not indicated at present time, will continue to monitor. Nephrotoxins should be avoided. Qualifiers: Qualifiers: Acute renal failure type: unspecified Qualified Code(s): N17.9 - Acute kidney failure, unspecified Subjective Interval history: Now in ICU, intubated on vent. Nursing staff states going for CT Abd/pelvis and chest. Concern for aspiration prior to intubation and abdominal distention, daughter states patient complained of abdominal pain for past year. Objective - Vital Signs Vital signs: Vital Signs Temp Pulse Resp BP Pulse Ox 09/07/16 08:31 14 118/59 96 09/07/16 08:19 66 14 118/59 96 09/07/16 08:00 66 14 118/59 96 09/07/16 07:48 67 09/07/16 07:42 16 118/61 97 09/07/16 07:25 97.2 F L 09/07/16 07:00 67 16 113/53 96 09/07/16 06:22 16 107/51 95 09/07/16 06:00 70 16 107/51 95 09/07/16 05:00 69 16 121/57 100 09/07/16 04:48 98.1 F 09/07/16 04:05 16 108/58 100 09/07/16 04:00 98.1 F 09/07/16 03:11 68 09/07/16 03:00 65 100 120/64 97 09/07/16 02:00 65 100 120/64 97 Intake and Output 09/06/16 09/07/16 09/07/16 23:59 07:59 15:59 Intake Total 1000 / 1000 Output Total 475 / 1875 Balance 525 / -875 Intake: IV Fluids 1000 / 1000 0.9 % Sodium Chloride 1, 1000 / 1000 000 ML @ 100 mls/hr IVC . Q10H RICKY Rx#:[id number] Output: Catheter 475 / 1075 Other: Blood Glucose* 143 - General Appearance General appearance: Present: well-developed, well-nourished, appears started age EENT: Present: mucous membranes moist Neck: Present: no JVD Additional Comments: diminished bilateral bases Cardiology: Present: no edema, regular rate, regular rhythm Gastrointestinal: Present: absent bowel sounds, distended Integumentary: Present: warm and dry - Lab 09/07/16 03:54 09/07/16 03:54 Most recent lab results ABG pH 7.39 pH Units (7.32-7.45) 09/07/16 05:35 ABG pCO2 41 mmHg (35-45) 09/07/16 05:35 ABG pO2 72 mmHg (85-104) L 09/07/16 05:35 ABG HCO3 24.8 mEQ/L (21-27) 09/07/16 05:35 ABG O2 Saturation 94 % (95-98) L 09/07/16 05:35 Calcium 8.2 mg/dL (8.6-10.8) L 09/07/16 03:54 Magnesium 1.6 mg/dL (1.6-2.6) 09/07/16 02:14 Consult Discharge Plan - Plan Referrals: Tommie Srivastava DO [Primary Care Provider] -
[2016-09-07] MEDS ORDERED: Dextrose Gel 15 GM PO PRN ×2 (10:58)
[2016-09-07] MEDS ORDERED: D5% in Water 1,000 ML IV PRN (10:58)
[2016-09-07] MEDS ORDERED: *HR* Dextrose 50 % in Water (Syg) 50 ML SYRINGE IVP PRN (10:58)
--- NOTE | 2016-09-07 11:14 | Pulmonology Consult Note ---
<Eric Smith - Last Filed: 09/07/16 12:20> Date of Encounter: 09/07/16 Time of Encounter: 11:05 Assessment and Plan (1) Aspiration pneumonia Current Visit: Yes Status: Suspected Suspected Emesis into bag mask when patient was unresponsive 09/07/16 WBC 18, up from 9 on admission on 09/05/16 Pt. has been on steroids so this may be 2/2 steroid use, however neutrophils were 15.6 so likely infectious process It is possible the increase in WBC and neutrophils is from another source. Will obtain abd/pel w/ oral contrast CT as well as chest CT to r/o SBO or other GI cause. Will continue Zosyn, Day 1 Will D/C levaquin as Zosyn will provide appropriate coverage Abd/Pel/Chest CT scan pending Currently intubated and sedated Qualifiers: Aspiration pneumonia type: due to vomit Laterality: unspecified laterality Lung location: unspecified part of lung Qualified Code(s): J69.0 - Pneumonitis due to inhalation of food and vomit (2) Acute exacerbation of chronic obstructive airways disease Current Visit: Yes Status: Acute Admitted for SOB with hx of obstructive lung disease currently intubated and sedated, yet patient is currently arousable will attempt CPAP trial today to see if pt. can come off vent Will continue bronchodilators, steroids, and Zosyn (3) Acute kidney injury superimposed on chronic kidney disease Current Visit: Yes Status: Acute Likely 2/2 acute illness with vomiting and poor oral intake Baseline pt has CKD III since admission acute worsening of renal function Scr was 1.7 on admission and up to 2.96 today baseline Scr ~1.5 GFR 20 today, baseline 40-50 nephro on board. Appreciate their recommendations. Currently HD not indicated. Avoid nephrotoxins if possible. continue fluid NS @ 100ml/hr (4) Hyperkalemia Current Visit: Yes Status: Acute K+ was 6.3 earlier s/p becoming unresponsive 60mg kayexelate given repeat K+ was 5.8 this am will repeat renal panel stat and treat if K+ remains elevated (5) Anemia of chronic disease Current Visit: Yes Status: Chronic likely 2/2 CKD stable at this time no indications for blood transfusions (6) CAD (coronary artery disease) Current Visit: No Status: Chronic hx of CAD stable at this time Qualifiers: Coronary Disease-Associated Artery/Lesion type: [place] artery [place] vs. transplanted heart: [place] heart Associated angina: angina presence unspecified Qualified Code(s): I25.10 - Atherosclerotic heart disease of [place] coronary artery without angina pectoris (7) DVT prophylaxis Current Visit: Yes Status: Acute heparin subq History of Present Illness Consult date: 09/07/16 Requesting physician: Bill Burk Reason for consult: other (found unresponsive. intubated and transferred to ICU. ) Chief complaint: SOB History of present illness: Mr. Thrasher is a 75 yo M who presented to [facility] on 09/05 for SOB. He has a pmhx significant for HTN, GERD, esophageal varices s/p banding in 2016, CKD III, COPD /Asthma, non-obstructive CAD, tobacco abuse, and opiod dependance. Pt. was admitted to the floor for Asthma exacerbation. He was being treated with supplemental O2, steroids, bronchodilators, and Levaquin. He was also noted to have LEE ANN on CKD. Last evening he became unresponsive. A rapid response was called and patient was initially ventilated with bag mask. He then proceeded to vomit into the bag mask. The patients oropharynx was suctioned and he continued to be unresponsive. He was intubated and sedated and transferred to the ICU. Past Med Surg Social Fam HX - Past Medical History Medical history: asthma, coronary artery disease, hypertension, myocardial infarction, other Psychiatric history: no psych history - Past Surgical History Surgical History: cholecystectomy - Social History Smoking Status: Former smoker Smokeless Tobacco Status: No Alcohol use: none Drug use: none - Family History Brother Adopted: No Age: 63 Living Status: Hx Family Cancer: Yes (liver with mets) Medications and Allergies Aspirin 81 mg PO DAILY 12/15/15 [History] Carvedilol 25 mg PO AD 12/15/15 [History] Citalopram Hydrobromide [Citalopram HBr] 40 mg PO DAILY 12/15/15 [History] Gabapentin [Neurontin] 300 mg PO TID 12/15/15 [History] Lisinopril [Zestril] 30 mg PO DAILY 12/15/15 [History] Lovastatin [Mevacor] 20 mg PO DAILY 12/15/15 [History] Oxycodone HCl [Roxicodone 30 MG Immed Release] 30 mg PO Q4H PRN 12/15/15 [ History] Pantoprazole Sodium 40 mg PO DAILY 12/15/15 [History] Albuterol Neb [Proventil Neb] 2.5 mg IH TID PRN 04/04/16 [History] Alprazolam 2 mg PO TID PRN 04/04/16 [History] Beclomethasone Diprop 40mcg [QVAR 40 mcg] 1 puff IH BID 04/04/16 [History] Amlodipine [Norvasc] 10 mg PO DAILY 09/07/16 [History] Diclofenac Sodium [Voltaren] 2 gm TP AD 09/07/16 [History] Fluticasone Propionate Nasal [Flonase] 50 mcg NS DAILY 09/07/16 [History] Montelukast [Singulair] 10 mg PO DAILY 09/07/16 [History] Allergies tetanus toxoid, adsorbed Allergy (Verified 04/15/16 13:16) Swelling of Lip/Tongue/Throat ROS unobtainable: due to endotracheal tube All Systems: A 10-system review of systems was performed and is negative for pertinent findings except as documented above in the HPI. Physical Examination Vital Signs: Vital Signs, Last 4 Hours Temp Pulse Resp BP Pulse Ox 09/07/16 10:14 75 14 110/58 95 09/07/16 10:00 70 14 107/58 93 L 09/07/16 09:00 75 14 110/58 95 09/07/16 08:31 14 118/59 96 09/07/16 08:19 66 14 118/59 96 09/07/16 08:00 66 14 118/59 96 09/07/16 07:48 67 09/07/16 07:42 16 118/61 97 09/07/16 07:25 97.2 F L General appearance: other (intubated) Effort: other (intubated and sedated) Inspection: other (intubated and sedated) Auscultation: bilateral: diminished breath sounds, wheezes Cardiovascular: regular rate and rhythm Gastrointestinal: normoactive bowel sounds Extremities: no cyanosis, no edema, pink and warm other (intubated and sedated) Ventilator Settings Ventilator Settings: Ventilator Settings, Last 8 Hours Ventilator Mode VC+ Ventilator Mode VC+ Ventilator Mode VC+ Ventilator Mode VC+ Ventilator Mode VC+ Ventilator Mode VC+ Ventilator Mode VC+ Ventilator Tidal Volume 600 Setting Ventilator Tidal Volume 600 Setting Ventilator Tidal Volume 600 Setting Ventilator Tidal Volume 600 Setting Ventilator Tidal Volume 600 Setting Ventilator Tidal Volume 600 Setting Ventilator Tidal Volume 600 Setting Ventilator Respiratory Rate 16 Setting Ventilator Respiratory Rate 16 Setting Ventilator Respiratory Rate 16 Setting Ventilator Respiratory Rate 16 Setting Ventilator Respiratory Rate 16 Setting Ventilator Respiratory Rate 16 Setting Ventilator Respiratory Rate 16 Setting Actual Respiratory Rate 16 Actual Respiratory Rate 16 Actual Respiratory Rate 16 Actual Respiratory Rate 16 Actual Respiratory Rate 16 Actual Respiratory Rate 16 Positive End Expiratory 5 Pressure Positive End Expiratory 5 Pressure Positive End Expiratory 5 Pressure Positive End Expiratory 5 Pressure Positive End Expiratory 5 Pressure Positive End Expiratory 5 Pressure Positive End Expiratory 5 Pressure Peak Inspiratory Airway 32 Pressure Peak Inspiratory Airway 32 Pressure Peak Inspiratory Airway 28 Pressure Peak Inspiratory Airway 28 Pressure Peak Inspiratory Airway 30 Pressure Peak Inspiratory Airway 28 Pressure Results - Laboratory Findings CBC and BMP: 09/07/16 03:54 09/07/16 11:22 ABG ABG pH 7.39 pH Units (7.32-7.45) 09/07/16 05:35 ABG pCO2 41 mmHg (35-45) 09/07/16 05:35 ABG pO2 72 mmHg (85-104) L 09/07/16 05:35 ABG O2 Saturation 94 % (95-98) L 09/07/16 05:35 PT/INR, D-dimer PT 13.0 Seconds (9.4-12.1) H 09/07/16 02:14 Abnormal lab findings: Abnormal lab results WBC 18.1 K/mcL (4.3-11.1) H 09/07/16 03:54 RBC 3.36 M/mcL (4.19-5.50) L 09/07/16 03:54 Hgb 9.4 g/dL (12.9-16.9) L 09/07/16 03:54 Hct 29.1 % (37.5-50.1) L 09/07/16 03:54 MPV 9.3 fL (9.4-12.4) L 09/07/16 03:54 Neutrophils # 16.6 K/mcL (1.6-8.9) H 09/07/16 03:54 Platelet Estimate Slight Decrease (Normal) L 09/07/16 02:14 PT 13.0 Seconds (9.4-12.1) H 09/07/16 02:14 APTT 23.7 Seconds (26.0-36.0) L 09/07/16 02:14 ABG pO2 72 mmHg (85-104) L 09/07/16 05:35 ABG Total CO2 26.1 mEq/L (20-26) H 09/07/16 05:35 ABG O2 Saturation 94 % (95-98) L 09/07/16 05:35 VBG pH 7.23 pH Units (7.32-7.42) L 09/07/16 02:14 VBG pCO2 60 mmHg (41-51) H 09/07/16 02:14 VBG pO2 49 mmHg (25-40) H 09/07/16 02:14 Sodium 132 mEq/L (136-145) L 09/07/16 03:54 Potassium 5.8 mEq/L (3.5-4.5) H 09/07/16 03:54 Carbon Dioxide 17 mEq/L (19-29) L 09/07/16 03:54 BUN 41 mg/dL (8-26) H 09/07/16 03:54 Creatinine 2.96 mg/dL (0.72-1.25) H 09/07/16 03:54 Est GFR ( Amer) 25 (> 60) L 09/07/16 03:54 Est GFR (Non-Af Amer) 21 (> 60) L 09/07/16 03:54 Glucose 204 mg/dL (70-99) H 09/07/16 03:54 POC Glucose 143 (58-89) H 09/07/16 07:17 Lactic Acid 2.3 mmol/L (0.5-2.2) H 09/07/16 03:54 Calcium 8.2 mg/dL (8.6-10.8) L 09/07/16 03:54 Iron 32 mcg/dL (65-175) L 09/06/16 06:12 % Saturation 10 % (20-55) L 09/06/16 06:12 AST 85 Units/L (5-34) H 09/07/16 03:54 ALT 87 Units/L (0-55) H 09/07/16 03:54 B-Natriuretic Peptide 241 pg/mL (0-100) H 09/05/16 17:18 Albumin 3.3 g/dL (3.5-5.0) L 09/07/16 03:54 - Clinical Findings Intake & Output: Intake & Output 09/06/16 09/07/16 09/07/16 23:59 07:59 15:59 Intake Total 1000 / 1000 200 / 200 Output Total 475 / 1875 Balance 525 / -875 200 / 200 Consult Discharge Plan - Plan Referrals: Tommie Srivastava DO [Primary Care Provider] - <Milly Peetrson Yasmine - Last Filed: 09/07/16 16:52> Date of Encounter: 09/07/16 All Systems: A 10-system review of systems was performed and is negative for pertinent findings except as documented above in the HPI. Physical Examination Vital Signs: Vital Signs, Last 4 Hours Temp Pulse Resp BP Pulse Ox 09/07/16 16:00 61 14 121/68 94 L 09/07/16 15:43 96.8 F L 09/07/16 15:41 67 15 107/59 93 L 09/07/16 15:00 62 14 114/62 95 09/07/16 13:00 67 15 107/59 93 L Ventilator Settings Ventilator Settings: Ventilator Settings, Last 8 Hours Ventilator Mode VC+ Ventilator Tidal Volume 600 Setting Ventilator Respiratory Rate 16 Setting Actual Respiratory Rate 16 Positive End Expiratory 5 Pressure Peak Inspiratory Airway 32 Pressure Results - Laboratory Findings CBC and BMP: 09/07/16 03:54 09/07/16 11:22 ABG ABG pH 7.39 pH Units (7.32-7.45) 09/07/16 05:35 ABG pCO2 41 mmHg (35-45) 09/07/16 05:35 ABG pO2 72 mmHg (85-104) L 09/07/16 05:35 ABG O2 Saturation 94 % (95-98) L 09/07/16 05:35 PT/INR, D-dimer PT 13.0 Seconds (9.4-12.1) H 09/07/16 02:14 Abnormal lab findings: Abnormal lab results WBC 18.1 K/mcL (4.3-11.1) H 09/07/16 03:54 RBC 3.36 M/mcL (4.19-5.50) L 09/07/16 03:54 Hgb 9.4 g/dL (12.9-16.9) L 09/07/16 03:54 Hct 29.1 % (37.5-50.1) L 09/07/16 03:54 MPV 9.3 fL (9.4-12.4) L 09/07/16 03:54 Neutrophils # 16.6 K/mcL (1.6-8.9) H 09/07/16 03:54 Platelet Estimate Slight Decrease (Normal) L 09/07/16 02:14 PT 13.0 Seconds (9.4-12.1) H 09/07/16 02:14 APTT 23.7 Seconds (26.0-36.0) L 09/07/16 02:14 ABG pO2 72 mmHg (85-104) L 09/07/16 05:35 ABG Total CO2 26.1 mEq/L (20-26) H 09/07/16 05:35 ABG O2 Saturation 94 % (95-98) L 09/07/16 05:35 VBG pH 7.23 pH Units (7.32-7.42) L 09/07/16 02:14 VBG pCO2 60 mmHg (41-51) H 09/07/16 02:14 VBG pO2 49 mmHg (25-40) H 09/07/16 02:14 Potassium 4.7 mEq/L (3.5-4.5) H D 09/07/16 11:22 BUN 43 mg/dL (8-26) H 09/07/16 11:22 Creatinine 2.66 mg/dL (0.72-1.25) H 09/07/16 11:22 Est GFR ( Amer) 28 (> 60) L 09/07/16 11:22 Est GFR (Non-Af Amer) 23 (> 60) L 09/07/16 11:22 Glucose 130 mg/dL (70-99) H 09/07/16 11:22 POC Glucose 127 (58-89) H 09/07/16 15:26 Calcium 7.9 mg/dL (8.6-10.8) L 09/07/16 11:22 Iron 32 mcg/dL (65-175) L 09/06/16 06:12 % Saturation 10 % (20-55) L 09/06/16 06:12 AST 85 Units/L (5-34) H 09/07/16 03:54 ALT 87 Units/L (0-55) H 09/07/16 03:54 B-Natriuretic Peptide 241 pg/mL (0-100) H 09/05/16 17:18 Albumin 3.0 g/dL (3.5-5.0) L 09/07/16 11:22 - Clinical Findings Intake & Output: Intake & Output 09/07/16 09/07/16 09/07/16 07:59 15:59 23:59 Intake Total 1000 / 1000 1400 / 1400 Output Total 475 / 1875 650 / 650 Balance 525 / -875 750 / 750 - Attending Attestation I examined this patient and my medical decision-making was reviewed with the LPN CARE MANAGER/PA/Advanced Practice Nurse/Resident Physician. I agree with the documented findings, disposition and treatment plan as described except to the extent set forth below. Patient seen and examined. Labs, radiology, chart personally reviewed. Agree with resident's history and physical, assessment, plan with following comments: RESEARCH AND DEVELOPMENT SCIENTIST: Patient on the vent and sedated. Pulmonary: Acceptable oxygenation and ventilation on the ventilator and changed mode to VC plus with possibility of CPAP trial if patient awake enough and after checking CAT scans. Continue current treatment and possibility of CPAP trial most likely tomorrow if patient remains stable since he was just recently intubated for his acute respiratory failure and also possibility of aspiration. Cardiovascular: Relatively stable. Hypertension to be treated with hydralazine. GI: Nutrition per dietary and GI prophylaxis per routine. GI consult with the CT chest finding Heme: DVT prophylaxis per routine ID: Continue antibiotics and plan to de-escalation Renal; urine out put and renal funtion reviewed Endorcine: blood glucose is monitored Lines: all lines checked and no evidence of infections Skin: skin care to prevent pressure ulcers per nursing routine care I spent 35 min of Critical Care time with this patient. It involved decision making of high complexity to assess, manipulate, and support vital organ system failure and/or to prevent further life threatening deterioration of the patient' s condition. The time involved in the performance of separately reportable procedures was not counted toward critical care time.
[2016-09-07 11:41] LABS: Calcium 7.9 mg/dL (8.6-10.8); Phosphorous 3.5 mg/dL (2.3-4.7)
[2016-09-07 11:54] LABS: Potassium 4.7 mEq/L (3.5-4.5)
[2016-09-07] MEDS: Insulin LISPRO 300 UNITS/3 ML VIAL SQ SCH ×3 (12:18→21:01)
[2016-09-07 12:40] LABS: Adenovirus Not Detected (Not Detect); Bordetella Pertussis Not Detected (Not Detect); Chlamydophila pneumoniae Not Detected (Not Detect); Coronavirus 229E Not Detected (Not Detect); Coronavirus HKU1 Not Detected (Not Detect); Coronavirus NL63 Not Detected (Not Detect); Coronavirus OC43 Not Detected (Not Detect); Human Metapneumovirus Not Detected (Not Detect); Human Rhinovirus/Enterovirus Not Detected (Not Detect); Influenza A Subtype 2009 H1 Not Detected (Not Detect); Influenza A Untypeable Not Detected (Not Detect); Influenza B Not Detected (Not Detect); Mycoplasma pneumoniae Not Detected (Not Detect); Parainfluenza Virus 1 Not Detected (Not Detect); Parainfluenza Virus 2 Not Detected (Not Detect); Parainfluenza Virus 3 Not Detected (Not Detect); Parainfluenza Virus 4 Not Detected (Not Detect); Respiratory Syncytial Virus Not Detected (Not Detect)
[2016-09-08] MEDS: 0.9 % Sodium Chloride 1,000 ML IVC SCH ×2 (01:41→08:38)
[2016-09-08] MEDS: Ipratropium/Albuterol Neb 3 ML IH SCH ×6 (03:41→23:38)
[2016-09-08] MEDS: FentaNYL (PF) 1,000 MCG in 0.9 % Sodium Chloride 80 ML IVC SCH (04:06)
[2016-09-08] MEDS: Piperacillin/Tazobactam 3.375 GM in D5% in Water (Mini-Bag+) 100 ML IVPB SCH ×2 (04:07→16:43)
[2016-09-08] MEDS: Lacri-Lube 3.5 GM TUBE BOTH EYES SCH ×5 (04:07→20:00)
[2016-09-08 04:19] LABS: ABG HCO3 24.7 mEQ/L (21-27); ABG Oxygen Saturation 88 % (95-98); ABG PCO2 59 mmHg (35-45); ABG PH 7.23 pH Units (7.32-7.45); ABG PO2 66 mmHg (85-104); ABG TCO2 26.5 mEq/L (20-26)
[2016-09-08 04:20] LABS: Blood Gas FiO2 40 %
[2016-09-08 04:28] LABS: Hematocrit 27.8 % (37.5-50.1); Hemoglobin 8.9 g/dL (12.9-16.9); Immature Granulocytes % 1.2 % (0-4); Immature Platelets 2.6 % (1.1-6.1); Lymphocytes # 0.4 K/mcL (0.6-4.6); Lymphocytes % 3.5 %; Mean Corpuscular Hemoglobin 28.1 pg (28.0-33.3); Mean Corpuscular Volume 87.7 fL (83.0-100.0); Mean Platelet Volume 9.9 fL (9.4-12.4); Monocytes # 0.3 K/mcL (0.0-1.3); Monocytes % 2.5 %; Neutrophils # 9.5 K/mcL (1.6-8.9); Platelet Count 122 K/mcL (140-400); Red Blood Count 3.17 M/mcL (4.19-5.50); Red Cell Distribution Width 13.3 % (11.5-14.5); Segmented Neutrophils % 92.8 %
[2016-09-08 04:48] LABS: Bilirubin,Total 0.3 mg/dL (0.2-1.2)
[2016-09-08] MEDS: Pantoprazole 40 MG VIAL IVPB SCH ×2 (05:46→16:42)
[2016-09-08] MEDS: methylPREDNISolone 125 MG/2 ML VIAL IVP SCH ×3 (05:46→16:43)
[2016-09-08] MEDS: Dexmedetomidine HCl 400 MCG/100 ML MLS IVC SCH (06:04)
[2016-09-08] MEDS ORDERED: Furosemide 40 MG/4 ML VIAL IVP ONE (07:58)
[2016-09-08] MEDS: hydrALAZINE 25 MG TABLET PO SCH ×3 (08:14→19:52)
[2016-09-08] MEDS: Aspirin Enteric Coated 81 MG Tablet PO SCH (08:14)
[2016-09-08] MEDS: Isosorbide MONOnitrate (24 HR) 60 MG TAB.ER.24H PO SCH (08:15)
[2016-09-08] MEDS: *HR* Heparin 5,000 UNIT/ML VIAL SQ SCH ×2 (08:15→16:42)
[2016-09-08] MEDS: Chlorhexidine Rinse 15 ML MOUTHWASH MM SCH ×2 (08:16→20:00)
[2016-09-08] MEDS: Insulin LISPRO 300 UNITS/3 ML VIAL SQ SCH ×5 (08:23→20:00)
--- NOTE | 2016-09-08 08:26 | Pulmonology Progress Note ---
<Eric Smith - Last Filed: 09/08/16 12:53> Date of Encounter: 09/08/16 Time of Encounter: 08:22 Assessment and Plan (1) Aspiration pneumonia Current Visit: Yes Status: Suspected Suspected. 2/2 emesis into bag mask during rapid response on 09/07/16 WBC down to 10.2 from [address] scan of chest: consolidative opacities in lingula and LLL atelectasis vs PNA. Will continue zosyn Day 2 Qualifiers: Aspiration pneumonia type: due to vomit Laterality: unspecified laterality Lung location: unspecified part of lung Qualified Code(s): J69.0 - Pneumonitis due to inhalation of food and vomit (2) Acute exacerbation of chronic obstructive airways disease Current Visit: Yes Status: Acute Admitted for SOB with hx of obstructive lung disease currently intubated and sedated, yet patient is currently arousable CPAP trials have failed x2. Possibly d/t sedation. Will d/c sedation and try CPAP trial and hope to extubate today Will continue bronchodilators, steroids, and Zosyn (Day 2) (3) Acute kidney injury superimposed on chronic kidney disease Current Visit: Yes Status: Acute Likely 2/2 acute illness with vomiting and poor oral intake Baseline pt has CKD III since admission acute worsening of renal function Scr was 1.7 on admission Scr high value of 3.10 on 09/07/16 Scr 2.58 today 09/08/16 baseline Scr ~1.5 GFR trending back up. 24 today. baseline 40-50 nephro on board. Appreciate their recommendations. Currently HD not indicated. Avoid nephrotoxins if possible. CXR this am revealed increased increased patchiness in right lung field believed to be 2/2 fluid overload Will d/c IVF and give one dose 60mg Lasix. (4) Abnormal CT of the abdomen Current Visit: Yes Status: Acute CT abd/pel to r/o SBO. Pt. with hx of nausea/vomiting/ x months Duodenitis vs PUD hyperdense area in cecum. stool vs mass GI consulted. Appreciate their recommendations Protonix 40mg BID Chest CT 09/07/16 11:30 IMPRESSION: 1. Focal stranding within the right upper quadrant predominately adjacent to the second portion of the duodenum and hepatic flexure. Findings favor a duodenal process such as duodenitis or peptic ulcer disease and less likely a colonic process. Small bilateral pleural effusions with adjacent atelectasis. Consolidative opacities in the lingula and left lower lobe are felt to be related to atelectasis given volume loss. Superimposed pneumonia is not entirely excluded. 2. Age-indeterminate mild anterior wedge compression deformity at the T7 vertebral body. 3. Mild intra and extrahepatic biliary duct dilation slightly increased since the prior exam. Recommend correlation with LFTs. Otherwise findings are likely related to post cholecystectomy changes. 4. A 6.5 cm hyperdense area within the cecum which may represent consolidated stool, however, mass is not entirely excluded and can be correlated with colonoscopy once acute issues have resolved. (5) Hyperkalemia Current Visit: Yes Status: Acute Hyperkalemia earlier in hospital admission with high K+ of 6.4 K+ 5.0 09/08/16 continue to monitor (6) Anemia of chronic disease Current Visit: Yes Status: Chronic likely 2/2 CKD stable at this time no indications for blood transfusions (7) CAD (coronary artery disease) Current Visit: No Status: Chronic hx of CAD stable at this time Qualifiers: Coronary Disease-Associated Artery/Lesion type: [place] artery [place] vs. transplanted heart: [place] heart Associated angina: angina presence unspecified Qualified Code(s): I25.10 - Atherosclerotic heart disease of [place] coronary artery without angina pectoris (8) DVT prophylaxis Current Visit: Yes Status: Acute heparin subq Subjective Principal diagnosis: Asthma exacerbation Interval history: Patient seen and examined. Remains intubated and sedated. Plan to attempt CPAP trial today with hopes to extubate. CXR shows increased patchiness possibly from volume overload. Will diurese today with lasix and d/c fluids. GI consult for possible cecal mass vs stool. Objective PUL Vital signs: Last Vital Signs Temp 97.9 F 09/08/16 07:38 Pulse 71 09/08/16 06:00 Resp 16 09/08/16 07:28 BP 126/61 09/08/16 06:00 Pulse Ox 92 L 09/08/16 07:28 General appearance: other (intubated and sedated) Effort: other (intubated and sedated) Auscultation: bilateral: wheezes, rhonchi Cardiovascular: regular rate and rhythm Gastrointestinal: hypoactive bowel sounds Extremities: no cyanosis, no edema, pink and warm Musculoskeletal: no deformities other (intubated and sedated) Ventilator Settings Ventilator Settings: Ventilator Settings, Last 8 Hours Ventilator Mode VC+ Ventilator Mode VC+ Ventilator Mode VC+ Ventilator Mode VC+ Ventilator Mode VC+ Ventilator Mode VC+ Ventilator Mode VC+ Ventilator Mode VC+ Ventilator Mode VC+ Ventilator Tidal Volume 600 Setting Ventilator Tidal Volume 600 Setting Ventilator Tidal Volume 600 Setting Ventilator Tidal Volume 600 Setting Ventilator Tidal Volume 600 Setting Ventilator Tidal Volume 600 Setting Ventilator Tidal Volume 600 Setting Ventilator Tidal Volume 600 Setting Ventilator Tidal Volume 600 Setting Ventilator Respiratory Rate 16 Setting Ventilator Respiratory Rate 14 Setting Ventilator Respiratory Rate 14 Setting Ventilator Respiratory Rate 14 Setting Ventilator Respiratory Rate 14 Setting Ventilator Respiratory Rate 14 Setting Ventilator Respiratory Rate 14 Setting Ventilator Respiratory Rate 14 Setting Ventilator Respiratory Rate 14 Setting Actual Respiratory Rate 16 Actual Respiratory Rate 16 Actual Respiratory Rate 14 Actual Respiratory Rate 14 Actual Respiratory Rate 14 Actual Respiratory Rate 14 Actual Respiratory Rate 14 Actual Respiratory Rate 14 Positive End Expiratory 5 Pressure Positive End Expiratory 5 Pressure Positive End Expiratory 5 Pressure Positive End Expiratory 5 Pressure Positive End Expiratory 5 Pressure Positive End Expiratory 5 Pressure Positive End Expiratory 5 Pressure Positive End Expiratory 5 Pressure Positive End Expiratory 5 Pressure Peak Inspiratory Airway 33 Pressure Peak Inspiratory Airway 33 Pressure Peak Inspiratory Airway 28 Pressure Peak Inspiratory Airway 31 Pressure Peak Inspiratory Airway 36 Pressure Peak Inspiratory Airway 38 Pressure Peak Inspiratory Airway 28 Pressure Peak Inspiratory Airway 39 Pressure Results - Laboratory Findings CBC and BMP: 09/08/16 03:48 09/08/16 03:48 ABG ABG pH 7.23 pH Units (7.32-7.45) L 09/08/16 04:12 ABG pCO2 59 mmHg (35-45) H 09/08/16 04:12 ABG pO2 66 mmHg (85-104) L 09/08/16 04:12 ABG O2 Saturation 88 % (95-98) L 09/08/16 04:12 PT/INR, D-dimer PT 13.0 Seconds (9.4-12.1) H 09/07/16 02:14 Abnormal lab findings: Abnormal lab results RBC 3.17 M/mcL (4.19-5.50) L 09/08/16 03:48 Hgb 8.9 g/dL (12.9-16.9) L 09/08/16 03:48 Hct 27.8 % (37.5-50.1) L 09/08/16 03:48 Plt Count 122 K/mcL (140-400) L 09/08/16 03:48 Neutrophils # 9.5 K/mcL (1.6-8.9) H 09/08/16 03:48 Lymphocytes # 0.4 K/mcL (0.6-4.6) L 09/08/16 03:48 Platelet Estimate Slight Decrease (Normal) L 09/07/16 02:14 PT 13.0 Seconds (9.4-12.1) H 09/07/16 02:14 APTT 23.7 Seconds (26.0-36.0) L 09/07/16 02:14 ABG pH 7.23 pH Units (7.32-7.45) L 09/08/16 04:12 ABG pCO2 59 mmHg (35-45) H 09/08/16 04:12 ABG pO2 66 mmHg (85-104) L 09/08/16 04:12 ABG Total CO2 26.5 mEq/L (20-26) H 09/08/16 04:12 ABG O2 Saturation 88 % (95-98) L 09/08/16 04:12 ABG Base Excess -3.0 mEq/L (-2.0 to 3.0) L 09/08/16 04:12 VBG pH 7.23 pH Units (7.32-7.42) L 09/07/16 02:14 VBG pCO2 60 mmHg (41-51) H 09/07/16 02:14 VBG pO2 49 mmHg (25-40) H 09/07/16 02:14 Potassium 5.0 mEq/L (3.5-4.5) H 09/08/16 03:48 Chloride 110 mEq/L (98-109) H 09/08/16 03:48 BUN 47 mg/dL (8-26) H 09/08/16 03:48 Creatinine 2.58 mg/dL (0.72-1.25) H 09/08/16 03:48 Est GFR ( Amer) 29 (> 60) L 09/08/16 03:48 Est GFR (Non-Af Amer) 24 (> 60) L 09/08/16 03:48 Glucose 137 mg/dL (70-99) H 09/08/16 03:48 POC Glucose 143 (58-89) H 09/08/16 07:10 Calculated Osmolality 308 (280-300) H 09/08/16 03:48 Calcium 8.0 mg/dL (8.6-10.8) L 09/08/16 03:48 Iron 32 mcg/dL (65-175) L 09/06/16 06:12 % Saturation 10 % (20-55) L 09/06/16 06:12 B-Natriuretic Peptide 241 pg/mL (0-100) H 09/05/16 17:18 Albumin 3.0 g/dL (3.5-5.0) L 09/08/16 03:48 Albumin/Globulin Ratio 1.0 (1.1-2.2) L 09/08/16 03:48 - Microbiology Findings Microbiology Findings: Microbiology, Last 48 Hours 09/07/16 02:14 Blood Culture - Preliminary Peripheral Venipuncture No growth. 09/07/16 02:14 Blood Culture - Preliminary Peripheral Venipuncture No growth. - Clinical Findings Intake & Output: Intake & Output 09/07/16 09/08/16 09/08/16 23:59 07:59 15:59 Intake Total 400 / 400 1230 / 1230 Output Total 250 / 250 1375 / 1375 Balance 150 / 150 -145 / -145 Weight 107 kg Consult Discharge Plan - Plan Referrals: Tommie Srivastava DO [Primary Care Provider] - <Milly Peterson - Last Filed: 09/08/16 16:54> Date of Encounter: 09/08/16 Objective PUL Vital signs: Last Vital Signs Temp 98.1 F 09/08/16 15:52 Pulse 86 09/08/16 15:00 Resp 12 09/08/16 16:12 BP 118/61 09/08/16 15:00 Pulse Ox 97 09/08/16 16:12 Ventilator Settings Ventilator Settings: Ventilator Settings, Last 8 Hours Ventilator Mode VC+ Ventilator Mode VC+ Ventilator Mode VC+ Ventilator Mode CPAP Ventilator Mode VC+ Ventilator Tidal Volume 600 Setting Ventilator Respiratory Rate 16 Setting Actual Respiratory Rate 11 Actual Respiratory Rate 9 Actual Respiratory Rate 9 Actual Respiratory Rate 9 Actual Respiratory Rate 16 Positive End Expiratory 5 Pressure Positive End Expiratory 5 Pressure Positive End Expiratory 5 Pressure Positive End Expiratory 5 Pressure Positive End Expiratory 5 Pressure Peak Inspiratory Airway 14 Pressure Peak Inspiratory Airway 45 Pressure Peak Inspiratory Airway 45 Pressure Peak Inspiratory Airway 45 Pressure Peak Inspiratory Airway 33 Pressure Results - Laboratory Findings CBC and BMP: 09/08/16 03:48 09/08/16 03:48 ABG ABG pH 7.23 pH Units (7.32-7.45) L 09/08/16 04:12 ABG pCO2 59 mmHg (35-45) H 09/08/16 04:12 ABG pO2 66 mmHg (85-104) L 09/08/16 04:12 ABG O2 Saturation 88 % (95-98) L 09/08/16 04:12 PT/INR, D-dimer PT 13.0 Seconds (9.4-12.1) H 09/07/16 02:14 Abnormal lab findings: Abnormal lab results RBC 3.17 M/mcL (4.19-5.50) L 09/08/16 03:48 Hgb 8.9 g/dL (12.9-16.9) L 09/08/16 03:48 Hct 27.8 % (37.5-50.1) L 09/08/16 03:48 Plt Count 122 K/mcL (140-400) L 09/08/16 03:48 Neutrophils # 9.5 K/mcL (1.6-8.9) H 09/08/16 03:48 Lymphocytes # 0.4 K/mcL (0.6-4.6) L 09/08/16 03:48 Platelet Estimate Slight Decrease (Normal) L 09/07/16 02:14 PT 13.0 Seconds (9.4-12.1) H 09/07/16 02:14 APTT 23.7 Seconds (26.0-36.0) L 09/07/16 02:14 ABG pH 7.23 pH Units (7.32-7.45) L 09/08/16 04:12 ABG pCO2 59 mmHg (35-45) H 09/08/16 04:12 ABG pO2 66 mmHg (85-104) L 09/08/16 04:12 ABG Total CO2 26.5 mEq/L (20-26) H 09/08/16 04:12 ABG O2 Saturation 88 % (95-98) L 09/08/16 04:12 ABG Base Excess -3.0 mEq/L (-2.0 to 3.0) L 09/08/16 04:12 VBG pH 7.23 pH Units (7.32-7.42) L 09/07/16 02:14 VBG pCO2 60 mmHg (41-51) H 09/07/16 02:14 VBG pO2 49 mmHg (25-40) H 09/07/16 02:14 Potassium 5.0 mEq/L (3.5-4.5) H 09/08/16 03:48 Chloride 110 mEq/L (98-109) H 09/08/16 03:48 BUN 47 mg/dL (8-26) H 09/08/16 03:48 Creatinine 2.58 mg/dL (0.72-1.25) H 09/08/16 03:48 Est GFR ( Amer) 29 (> 60) L 09/08/16 03:48 Est GFR (Non-Af Amer) 24 (> 60) L 09/08/16 03:48 Glucose 137 mg/dL (70-99) H 09/08/16 03:48 POC Glucose 150 (58-89) H 09/08/16 15:23 Calculated Osmolality 308 (280-300) H 09/08/16 03:48 Calcium 8.0 mg/dL (8.6-10.8) L 09/08/16 03:48 Iron 32 mcg/dL (65-175) L 09/06/16 06:12 % Saturation 10 % (20-55) L 09/06/16 06:12 B-Natriuretic Peptide 241 pg/mL (0-100) H 09/05/16 17:18 Albumin 3.0 g/dL (3.5-5.0) L 09/08/16 03:48 Albumin/Globulin Ratio 1.0 (1.1-2.2) L 09/08/16 03:48 - Microbiology Findings Microbiology Findings: Microbiology, Last 48 Hours 09/07/16 02:14 Blood Culture - Preliminary Peripheral Venipuncture No growth. 09/07/16 02:14 Blood Culture - Preliminary Peripheral Venipuncture No growth. - Clinical Findings Intake & Output: Intake & Output 09/08/16 09/08/16 09/08/16 07:59 15:59 23:59 Intake Total 1230 / 1230 1100 / 1100 Output Total 1375 / 1375 1700 / 1700 Balance -145 / -145 -600 / -600 - Attending Attestation I examined this patient and my medical decision-making was reviewed with the KEYBOARDING CLERK/PA/Advanced Practice Nurse/Resident Physician. I agree with the documented findings, disposition and treatment plan as described except to the extent set forth below. Patient seen and examined. Labs, radiology, chart personally reviewed. Agree with resident's history and physical, assessment, plan with following comments: CHIEF LIFESTYLE OFFICER: Patient follows commands after extubation, however he was agitated when on the vent, Pulmonary: Patient ABG was more respiratory acidosis and change vent setting with increased respiratory rate and also due to his agitation and Precedex for cooperation for discontinuing screening and I will again diuresis to increase his chances for successful extubation. Cardiovascular: stable GI: Nutrition per dietary and GI prophylaxis per routine Heme: DVT prophylaxis per routine ID: Continue antibiotics and plan to de-escalation Renal; urine out put and renal funtion reviewed Endorcine: blood glucose is monitored Lines: all lines checked and no evidence of infections Skin: skin care to prevent pressure ulcers per nursing routine care I spent 35 min of Critical Care time with this patient. It involved decision making of high complexity to assess, manipulate, and support vital organ system failure and/or to prevent further life threatening deterioration of the patient' s condition. The time involved in the performance of separately reportable procedures was not counted toward critical care time.
[2016-09-08] MEDS: Budesonide/Formoterol 160/4.5 MDI IH SCH ×2 (08:42→19:33)
--- NOTE | 2016-09-08 10:20 | Nephrology Progress Note ---
Date of Encounter: 09/08/16 Time of Encounter: 09:45 - Assessment and Plan (1) Acute kidney failure, unspecified Current Visit: Yes Status: Acute LEE ANN/CKD 3 r/t HTN and nephrosclerosis. In setting of acute asthmatic bronchitis , acute illness, vomiting with decreased oral intake. Renal fct plateaued/ improving. Urine output 1975 cc. HD not indicated at present time, will continue to monitor. Nephrotoxins should be avoided. Qualifiers: Qualifiers: Acute renal failure type: unspecified Qualified Code(s): N17.9 - Acute kidney failure, unspecified Subjective Principal diagnosis: Asthma exacerbation Interval history: Intubated, sedated. CPAP trial in progress. Objective - Vital Signs Vital signs: Vital Signs Temp Pulse Resp BP Pulse Ox 09/08/16 10:00 73 16 135/63 94 L 09/08/16 09:10 9 140/70 85 L 09/08/16 09:00 72 16 140/70 95 09/08/16 08:00 72 16 145/68 92 L 09/08/16 07:38 97.9 F 09/08/16 07:28 16 92 L 09/08/16 07:00 72 16 122/67 95 09/08/16 06:00 71 16 126/61 92 L 09/08/16 05:26 14 92 L 09/08/16 05:00 71 14 117/62 93 L 09/08/16 04:18 97.9 F 09/08/16 03:42 14 95 09/08/16 03:00 73 14 102/73 91 L 09/08/16 02:00 68 14 121/61 94 L 09/08/16 01:00 69 14 118/63 92 L 09/08/16 00:00 72 14 112/65 92 L 09/07/16 23:29 14 95 09/07/16 23:00 97.8 F 68 14 115/59 95 09/07/16 22:18 14 96 09/07/16 22:00 67 14 116/63 96 09/07/16 21:36 96.7 F L 09/07/16 21:00 67 14 106/62 94 L 09/07/16 20:00 65 14 111/59 93 L 09/07/16 19:51 14 94 L 09/07/16 19:00 75 14 120/64 95 09/07/16 18:00 71 14 108/60 96 09/07/16 17:37 14 94 L 09/07/16 17:11 14 121/68 94 L 09/07/16 17:00 64 14 125/58 97 09/07/16 16:48 14 121/68 94 L 09/07/16 16:00 61 14 121/68 94 L 09/07/16 15:43 96.8 F L 09/07/16 15:41 67 15 107/59 93 L 09/07/16 15:00 62 14 114/62 95 09/07/16 13:00 67 15 107/59 93 L 09/07/16 12:15 97.8 F 09/07/16 12:00 66 14 116/63 94 L 09/07/16 11:37 97.8 F 09/07/16 11:28 14 104/54 96 09/07/16 11:23 75 09/07/16 11:00 60 14 104/54 94 L Intake and Output 09/07/16 09/08/16 09/08/16 23:59 07:59 15:59 Intake Total 400 / 400 1230 / 1230 1000 / 1000 Output Total 250 / 250 1375 / 1375 Balance 150 / 150 -145 / -145 1000 / 1000 Intake: IV Fluids 400 / 400 1200 / 1200 1000 / 1000 0.9 % Sodium Chloride 1, 1000 / 1000 1000 / 1000 000 ML @ 100 mls/hr IVC . Q10H [facility] Rx#:[id number] FentaNYL (PF) 1,000 MCG 200 / 200 100 / 100 In 0.9 % Sodium Chloride 80 ML @ 25 MCG/HR 2.5 mls /hr IVC CONT [facility] Rx#: [id number] Versed 50 MG In 0.9 % 100 / 100 100 / 100 Sodium Chloride 90 ML @ 2 MG/HR 4 mls/hr IVC CONT [facility]ICKY Rx#:[id number] Zosyn 3.375 GM In 100 / 100 Dextrose 5% (Minibag+) 100 ML 100 ML @ 25 mls/hr IVPB Q12H [facility] Rx#: [id number] Oral 0 / 0 0 / 0 Free Water 30 / 30 Output: Catheter 250 / 250 575 / 575 Gastric Drainage 800 / 800 Other: Weight 107 kg Blood Glucose* 141 143 143 - General Appearance General appearance: Present: well-developed, well-nourished, appears started age EENT: Present: mucous membranes moist Neck: Present: no JVD Additional Comments: harsh breath sounds Cardiology: Present: no edema, regular rate, regular rhythm Gastrointestinal: Present: absent bowel sounds Additional Comments: somewhat less distended Integumentary: Present: warm and dry - Lab 09/08/16 03:48 09/08/16 03:48 Most recent lab results ABG pH 7.23 pH Units (7.32-7.45) L 09/08/16 04:12 ABG pCO2 59 mmHg (35-45) H 09/08/16 04:12 ABG pO2 66 mmHg (85-104) L 09/08/16 04:12 ABG HCO3 24.7 mEQ/L (21-27) 09/08/16 04:12 ABG O2 Saturation 88 % (95-98) L 09/08/16 04:12 Calcium 8.0 mg/dL (8.6-10.8) L 09/08/16 03:48 Phosphorus 3.5 mg/dL (2.3-4.7) 09/07/16 11:22 Magnesium 1.6 mg/dL (1.6-2.6) 09/07/16 02:14 Consult Discharge Plan - Plan Referrals: Tommie Srivastava DO [Primary Care Provider] -
--- NOTE | 2016-09-08 15:01 | Event Note ---
Date of Encounter: 09/08/16 Time of Encounter: 15:00 Patient seen full consultation to follow. CT scan reviewed possible duodenitis and a possible mass in the cecum. EGd/colon am
[2016-09-08] MEDS ORDERED: SODIUM CHLORIDE/NAHCO3/KCL/PEG 4,000 ML SOLN.RECON PO ONE (15:04)
[2016-09-08] MEDS ORDERED: *HR* LORazepam 2 MG/ML VIAL IVP PRN (15:11)
[2016-09-08] MEDS: *HR* HYDROmorphone (PF) 1 MG/ML SYRINGE IVP PRN (16:45)
[2016-09-08] MEDS: Gabapentin 300 MG CAPSULE PO SCH (19:52)
[2016-09-08] MEDS: Ondansetron 4 MG/2 ML VIAL IVP PRN (20:54)
[2016-09-09] MEDS: methylPREDNISolone 125 MG/2 ML VIAL IVP SCH ×3 (00:08→11:44)
[2016-09-09] MEDS: Lacri-Lube 3.5 GM TUBE BOTH EYES SCH ×2 (00:09→03:36)
[2016-09-09] MEDS: *HR* HYDROmorphone (PF) 1 MG/ML SYRINGE IVP PRN ×2 (00:10→03:36)
[2016-09-09] MEDS: Piperacillin/Tazobactam 3.375 GM in D5% in Water (Mini-Bag+) 100 ML IVPB SCH (02:56)
[2016-09-09] MEDS: Ondansetron 4 MG/2 ML VIAL IVP PRN (02:56)
[2016-09-09] MEDS: Dexmedetomidine HCl 400 MCG/100 ML MLS IVC SCH (03:36)
[2016-09-09] MEDS: Ipratropium/Albuterol Neb 3 ML IH SCH ×5 (04:03→21:36)
[2016-09-09] MEDS: Pantoprazole 40 MG VIAL IVPB SCH (06:15)
[2016-09-09] MEDS: *HR* Heparin 5,000 UNIT/ML VIAL SQ SCH ×2 (06:17→20:01)
[2016-09-09] MEDS: hydrALAZINE 25 MG TABLET PO SCH ×3 (06:17→20:01)
[2016-09-09] MEDS: Isosorbide MONOnitrate (24 HR) 60 MG TAB.ER.24H PO SCH (06:18)
[2016-09-09] MEDS: Budesonide/Formoterol 160/4.5 MDI IH SCH (07:29)
[2016-09-09 07:39] LABS: Albumin 3.2 g/dL (3.5-5.0); Bilirubin,Total 0.6 mg/dL (0.2-1.2); Calcium 8.1 mg/dL (8.6-10.8); Globulin 3.1 g/dL (2.4-3.5); Total Protein 6.3 g/dL (6.0-8.3)
[2016-09-09 07:43] LABS: Basophils % 0.1 %; Hematocrit 28.8 % (37.5-50.1); Hemoglobin 9.5 g/dL (12.9-16.9); Immature Granulocytes % 1.4 % (0-4); Lymphocytes # 0.3 K/mcL (0.6-4.6); Lymphocytes % 2.3 %; Mean Corpuscular Hemoglobin 27.9 pg (28.0-33.3); Mean Corpuscular Volume 84.7 fL (83.0-100.0); Mean Platelet Volume 9.9 fL (9.4-12.4); Monocytes # 0.3 K/mcL (0.0-1.3); Monocytes % 2.5 %; Neutrophils # 10.7 K/mcL (1.6-8.9); Platelet Count 140 K/mcL (140-400); Red Cell Distribution Width 13.4 % (11.5-14.5); Segmented Neutrophils % 93.7 %
[2016-09-09 07:48] LABS: Potassium 3.6 mEq/L (3.5-4.5)
[2016-09-09 07:50] LABS: INR 1.2; Prothrombin Time 13.5 Seconds (9.4-12.1)
--- NOTE | 2016-09-09 07:53 | Gastroenterology Consult Note ---
<Kimberlyn Fox - Last Filed: 09/09/16 11:08> Date of Encounter: 09/09/16 Time of Encounter: 10:10 - Assessment and plan (1) Abnormal CT of the abdomen Current Visit: Yes Status: Acute Assessment and plan: EGD/Colon today to evaluate findings. (2) Acute kidney injury superimposed on chronic kidney disease Current Visit: Yes Status: Acute (3) Anemia of chronic disease Current Visit: Yes Status: Chronic Assessment and plan: Stable hemoglobin today. R/O other etiologies, including GIB via EGD/Colonoscopy (4) Aspiration pneumonia Current Visit: Yes Status: Suspected Qualifiers: Aspiration pneumonia type: due to vomit Laterality: unspecified laterality Lung location: unspecified part of lung Qualified Code(s): J69.0 - Pneumonitis due to inhalation of food and vomit - Time Spent With Patient Total time spent is greater than 50% in coordination of care (as documented) at patient's floor/unit and/or counseling patient: less than 15 minutes GI History of Present Illness - Data of Consult Patient: new to practice Consult date: 09/09/16 Requesting Physician: Rocio Rodarte MD - Consult Narrative Reason for consult: anemia, NV, hx of esophageal 'tear' History of present illness: Mr. Thrasher is a 75 year old male with a PMH significant for HTN, GERD, esophageal 'tear' requiring surgical intervention in 2016, SKD, COPD/Asthma, CAD , tobacco abuse and opioid dependence. He was seen in the ED for dyspnea, SOB that started 09/05. He stated that the shortness of breath was worse with exertion and is minimally relieved with his rescue inhalers. He stated that he has been feeling sick over the past 4-5 days has been having productive cough with green sputum, and has upper abdominal pain during coughing episodes. He also notes minimal blood-tinged sputum that started today, and reports having an "esophageal tear" roughly 1 year ago when he was in [place] which required surgical intervention. Mr. Thrasher is a 75 year old male who presents with shortness of breath started when he woke up yesterday has been worsening. He states that the shortness of breath is worse with exertion and is minimally relieved with his rescue inhalers. He states that he has been feeling sick over the past 4-5 days has been having productive cough with green sputum, and has upper abdominal pain during coughing episodes. He also notes minimal blood- tinged sputum that started today, and reports having an "esophageal tear" roughly 1 year ago when he was in [place] which required surgical intervention. He became unresponsive, a rapid response ensued, he was initially ventilated with Ambubag, he vomited into the bag mask, he was suctioned, but remained unresponsive necessitating intubation. He was moved to ICU, he was extubated approximately 48 hours later. Dx aspiration pneumonia. The medical record indicates that he has experienced anorexia with associated N/V prior to admission. CT imaging revealed possible duodenitis, duodenal diverticulum, liver lesion 1.4 cm described as a hemangioma and findings concerning for a cecal mass measuring 6.5 x 5.3 cm. He is anemic going from 10.6 down to 8.9, currently 9.5, no transfusion. Transient thrombocytopenia, no evidence of cirrhosis noted on imaging. Colonoscopy: Unk EGD: Yes, 2016 Past Med Surg Social Fam HX - Past Medical History Medical history: asthma, coronary artery disease, hypertension, myocardial infarction, other Psychiatric history: no psych history - Past Surgical History Surgical History: cholecystectomy - Social History Smoking Status: Former smoker Smokeless Tobacco Status: No Alcohol use: none Drug use: none - Family History Brother Adopted: No Age: 63 Living Status: Hx Family Cancer: Yes (liver with mets) Review of Systems: Patient was not a good historian. - Gastrointestinal NSAID use: Unk Anticoagulation Use: heparin Number of BM Per Day: daily Gastrointestinal: Present: nausea, vomiting - Constitutional Constitutional: as per HPI - EENT Eyes: as per HPI Ears: Present: as per HPI Nose, mouth and throat: Present: as per HPI - Cardiovascular Cardiovascular ROS: Present: as per HPI - Respiratory Respiratory IM: Present: dyspnea, hemoptysis - Neurological ROS Neurological GI: Present: confusion, weakness - Hematologic/Lymphatic Hematologic/Lymphatic pediatric: Present: as per HPI - Musculoskeletal Musculoskeletal ROS GI: Present: as per HPI - Integumentary Integumentary GI: Present: as per HPI - Psychiatric ROS Psychiatric GI: Present: as per HPI - Endocrine Endocrine IM: Present: as per HPI - Constitutional Vitals: Temp Pulse Resp BP Pulse Ox 97.9 F 90 18 167/97 92 L 09/09/16 07:43 09/09/16 06:00 09/09/16 06:00 09/09/16 06:00 09/09/16 06:00 General appearance: Present: cooperative, A&O X 3, no acute distress Exam: Missing some details of the past several days. - Head Head exam: Present: atraumatic, normocephalic - Eye Eye exam: Present: normal appearance, sclera anicteric - ENT ENT exam: Present: mucous membranes moist - Neck Neck exam general surgery: Present: normal inspection, trachea midline - Respiratory Respiratory exam: Present: accessory muscle use, decreased breath sounds - Cardiovascular Cardiovascular exam: Present: RRR, +S1, +S2 - GI/Abdominal GI/Abdominal exam: Present: distended, firm, tenderness, no peritoneal signs - Rectal Rectal exam: Present: deferred - Extremities Exam Extremities exam: Present: warm - Neurological Exam Neurological exam: Present: no focal deficits - Psychiatric Psychiatric exam: Present: normal affect, normal mood - Skin Skin exam: Present: dry, intact, normal color, warm Results - Labs CBC & Chem 7: 09/09/16 06:52 09/09/16 06:52 Labs: Last Result Calcium 8.1 mg/dL (8.6-10.8) L 09/09/16 06:52 Iron 32 mcg/dL (65-175) L 09/06/16 06:12 % Saturation 10 % (20-55) L 09/06/16 06:12 Transferrin 238 mg/dL (174-364) 09/06/16 06:12 Ferritin 69 ng/ml (22-275) 09/06/16 06:12 Troponin I 0.01 ng/mL (0-0.03) 09/07/16 02:14 Entire Visit Hgb 9.5 g/dL (12.9-16.9) L 09/09/16 06:52 Hct 28.8 % (37.5-50.1) L 09/09/16 06:52 PT 13.0 Seconds (9.4-12.1) H 09/07/16 02:14 Ferritin 69 ng/ml (22-275) 09/06/16 06:12 Total Bilirubin 0.6 mg/dL (0.2-1.2) 09/09/16 06:52 AST 25 Units/L (5-34) 09/09/16 06:52 ALT 56 Units/L (0-55) H 09/09/16 06:52 - ABG ABG results: ABG ABG pH 7.23 pH Units (7.32-7.45) L 09/08/16 04:12 ABG pCO2 59 mmHg (35-45) H 09/08/16 04:12 ABG pO2 66 mmHg (85-104) L 09/08/16 04:12 ABG O2 Saturation 88 % (95-98) L 09/08/16 04:12 PT/INR, D-dimer PT 13.0 Seconds (9.4-12.1) H 09/07/16 02:14 - Impressions Impressions Chest X-Ray 09/09/16 05:19 IMPRESSION: Improved aeration of the lungs. Scattered opacities remain D/ / Scottie Do MD / Scottie Do MD Interpreting Provider: Scottie Do MD Consult Discharge Plan - Plan Referrals: Tommie Srivastava DO [Primary Care Provider] - <Riley Christianson - Last Filed: 09/09/16 22:08> Date of Encounter: 09/09/16 - Time Spent With Patient Total time spent is greater than 50% in coordination of care (as documented) at patient's floor/unit and/or counseling patient: GI History of Present Illness - Data of Consult Requesting Physician: Rocio Rodarte MD - Consult Narrative History of present illness: Mr. Thrasher is a 75 year old male - Constitutional Vitals: Temp Pulse Resp BP Pulse Ox 98.5 F 83 15 185/75 95 09/09/16 12:00 09/09/16 17:11 09/09/16 18:48 09/09/16 18:48 09/09/16 18:48 Results - Labs CBC & Chem 7: 09/09/16 06:52 09/09/16 06:52 Labs: Last Result Calcium 8.1 mg/dL (8.6-10.8) L 09/09/16 06:52 Iron 32 mcg/dL (65-175) L 09/06/16 06:12 % Saturation 10 % (20-55) L 09/06/16 06:12 Transferrin 238 mg/dL (174-364) 09/06/16 06:12 Ferritin 69 ng/ml (22-275) 09/06/16 06:12 Troponin I 0.01 ng/mL (0-0.03) 09/07/16 02:14 Entire Visit Hgb 9.5 g/dL (12.9-16.9) L 09/09/16 06:52 Hct 28.8 % (37.5-50.1) L 09/09/16 06:52 PT 13.5 Seconds (9.4-12.1) H 09/09/16 06:52 Ferritin 69 ng/ml (22-275) 09/06/16 06:12 Total Bilirubin 0.6 mg/dL (0.2-1.2) 09/09/16 06:52 AST 25 Units/L (5-34) 09/09/16 06:52 ALT 56 Units/L (0-55) H 09/09/16 06:52 - ABG ABG results: ABG ABG pH 7.23 pH Units (7.32-7.45) L 09/08/16 04:12 ABG pCO2 59 mmHg (35-45) H 09/08/16 04:12 ABG pO2 66 mmHg (85-104) L 09/08/16 04:12 ABG O2 Saturation 88 % (95-98) L 09/08/16 04:12 PT/INR, D-dimer PT 13.5 Seconds (9.4-12.1) H 09/09/16 06:52 - Impressions Impressions Abdomen/Pelvis CT 09/07/16 11:30 IMPRESSION: 1. Focal stranding within the right upper quadrant predominately adjacent to the second portion of the duodenum and hepatic flexure. Findings favor a duodenal process such as duodenitis or peptic ulcer disease and less likely a colonic process. 2. Small bilateral pleural effusions with adjacent atelectasis. Consolidative opacities in the lingula and left lower lobe are felt to be related to atelectasis given volume loss. Superimposed pneumonia is not entirely excluded. 3. Age-indeterminate mild anterior wedge compression deformity at the T7 vertebral body. 4. Mild intra and extrahepatic biliary duct dilation slightly increased since the prior exam. Recommend correlation with LFTs. Otherwise findings are likely related to post cholecystectomy changes. 5. A 6.5 cm hyperdense area within the cecum which may represent consolidated stool, however, mass is not entirely excluded and can be correlated with colonoscopy once acute issues have resolved. D/ / 09/07/2016 12:41:37 Portia Glover MD / Jacquelyn Smith Interpreting Provider: Portia Glover MD Chest CT 09/07/16 11:30 IMPRESSION: 1. Focal stranding within the right upper quadrant predominately adjacent to the second portion of the duodenum and hepatic flexure. Findings favor a duodenal process such as duodenitis or peptic ulcer disease and less likely a colonic process. 2. Small bilateral pleural effusions with adjacent atelectasis. Consolidative opacities in the lingula and left lower lobe are felt to be related to atelectasis given volume loss. Superimposed pneumonia is not entirely excluded. 3. Age-indeterminate mild anterior wedge compression deformity at the T7 vertebral body. 4. Mild intra and extrahepatic biliary duct dilation slightly increased since the prior exam. Recommend correlation with LFTs. Otherwise findings are likely related to post cholecystectomy changes. 5. A 6.5 cm hyperdense area within the cecum which may represent consolidated stool, however, mass is not entirely excluded and can be correlated with colonoscopy once acute issues have resolved. D/ / 09/07/2016 12:41:37 Portia Glover MD / Jacquelyn Smith Interpreting Provider: Portia Glover MD Chest X-Ray 09/09/16 05:19 IMPRESSION: Improved aeration of the lungs. Scattered opacities remain D/ / Scottie Do MD / Scottie Do MD Interpreting Provider: Scottie Do MD - Attending Attestation I examined this patient and my medical decision-making was reviewed with the ASIAN ART CURATOR/PA/Advanced Practice Nurse/Resident Physician. I agree with the documented findings, disposition and treatment plan as described except to the extent set forth below.
[2016-09-09] MEDS: Insulin LISPRO 300 UNITS/3 ML VIAL SQ SCH ×3 (08:26→21:43)
--- NOTE | 2016-09-09 08:42 | Pulmonology Progress Note ---
<Eric Smith - Last Filed: 09/09/16 10:56> Date of Encounter: 09/09/16 Time of Encounter: 08:39 Assessment and Plan (1) Acute respiratory failure Current Visit: Yes Status: Resolved Pt. became unresponsive on 09/07/16 with decreased oxygenation requiring intubation and ventilator support. Pt. had decrease >10% of baseline O2 saturations with increased pCO2. Pt. was extubated on 09/08/16 without complication and is currently oxygenating well on 3L nc. Stable at this time. Qualifiers: Respiratory failure complication: hypoxia and hypercapnia Qualified Code(s) : J96.01 - Acute respiratory failure with hypoxia; J96.02 - Acute respiratory failure with hypercapnia (2) Aspiration pneumonia Current Visit: Yes Status: Suspected Suspected. 2/2 emesis into bag mask during rapid response on 09/07/16 Pt. remains afebrile without an elevated WBC CT scan of chest: consolidative opacities in lingula and LLL atelectasis vs PNA. CXR 09/09/16 shows improved aeration of b/l lung mcelroy. Less likely to have developed an aspiration pneumonia at this time. Will d/c all antibiotics Qualifiers: Aspiration pneumonia type: due to vomit Laterality: unspecified laterality Lung location: unspecified part of lung Qualified Code(s): J69.0 - Pneumonitis due to inhalation of food and vomit (3) Acute exacerbation of chronic obstructive airways disease Current Visit: Yes Status: Acute Admitted for SOB with hx of obstructive lung disease Extubated yesterday without complication. Currently oxygenating well on 3L nc. Lung field show decreased opacities on cxr. Continue bronchodilators and steroids Abx discontinued (4) Acute kidney injury superimposed on chronic kidney disease Current Visit: Yes Status: Acute Likely 2/2 acute illness with vomiting and poor oral intake Baseline pt has CKD III since admission acute worsening of renal function Scr was 1.7 on admission Scr high value of 3.10 on 09/07/16 Scr 2.2 today 09/09/16 and continues to trend down baseline Scr ~1.5 GFR trending back up. nephro on board. Appreciate their recommendations. Currently HD not indicated. Avoid nephrotoxins if possible. Will hold home lisinopril. (5) Abnormal CT of the abdomen Current Visit: Yes Status: Acute CT abd/pel to r/o SBO. Pt. with hx of nausea/vomiting/ x months Duodenitis vs PUD hyperdense area in cecum. stool vs mass GI consulted. Will proceed with EGD/colonoscopy today GoLytely prep done. Protonix 40mg BID (6) Hyperkalemia Current Visit: Yes Status: Acute Hyperkalemia earlier in hospital admission with high K+ of 6.4, given kayexelate with good response. K+ 3.6 today continue to monitor (7) Anemia of chronic disease Current Visit: Yes Status: Chronic likely 2/2 CKD stable at this time no indications for blood transfusions (8) CAD (coronary artery disease) Current Visit: No Status: Chronic hx of CAD stable at this time continue home meds Qualifiers: Coronary Disease-Associated Artery/Lesion type: ely [place] artery [place] vs. transplanted heart: [place] heart Associated angina: angina presence unspecified Qualified Code(s): I25.10 - Atherosclerotic heart disease of [place] coronary artery without angina pectoris (9) Swallowing study performed Current Visit: Yes Status: Acute Speech Therapy Recommendations It is recommended that patient receive a pureed diet (NDD4) with thin liquids. Meds are to be administered in pureed textures which is patient's baseline. (10) DVT prophylaxis Current Visit: Yes Status: Acute heparin subq Subjective Principal diagnosis: Asthma exacerbation Interval history: Patient seen and examined. Patient extubated yesterday. Was diuresed yesterday with 60mg lasix with good response. CXR this am shows clearing of patchiness in both lung mcelroy. Finished his Golytely bowel prep for EGD/Colon this afternoon with Dr. Christianson. Pt. is stable at this time. Breathing and oxygenating well. Plan to transfer out of ICU to tele bed today. Denies any pain /nausea/sob. Objective PUL Vital signs: Last Vital Signs Temp 97.9 F 09/09/16 07:43 Pulse 90 09/09/16 08:11 Resp 18 09/09/16 08:11 BP 179/96 09/09/16 08:11 Pulse Ox 92 L 09/09/16 08:11 General appearance: no acute distress, alert Eyes: nonicteric ENT: oropharynx moist Effort: normal Auscultation: bilateral: wheezes Cardiovascular: regular rate and rhythm Gastrointestinal: hypoactive bowel sounds Integumentary: normal Extremities: no cyanosis, no edema Musculoskeletal: no deformities normal mental status, non-focal exam Results - Laboratory Findings CBC and BMP: 09/09/16 06:52 09/09/16 06:52 ABG ABG pH 7.23 pH Units (7.32-7.45) L 09/08/16 04:12 ABG pCO2 59 mmHg (35-45) H 09/08/16 04:12 ABG pO2 66 mmHg (85-104) L 09/08/16 04:12 ABG O2 Saturation 88 % (95-98) L 09/08/16 04:12 PT/INR, D-dimer PT 13.5 Seconds (9.4-12.1) H 09/09/16 06:52 Abnormal lab findings: Abnormal lab results WBC 11.4 K/mcL (4.3-11.1) H 09/09/16 06:52 RBC 3.40 M/mcL (4.19-5.50) L 09/09/16 06:52 Hgb 9.5 g/dL (12.9-16.9) L 09/09/16 06:52 Hct 28.8 % (37.5-50.1) L 09/09/16 06:52 MCH 27.9 pg (28.0-33.3) L 09/09/16 06:52 Neutrophils # 10.7 K/mcL (1.6-8.9) H 09/09/16 06:52 Lymphocytes # 0.3 K/mcL (0.6-4.6) L 09/09/16 06:52 Platelet Estimate Slight Decrease (Normal) L 09/07/16 02:14 PT 13.5 Seconds (9.4-12.1) H 09/09/16 06:52 APTT 23.7 Seconds (26.0-36.0) L 09/07/16 02:14 ABG pH 7.23 pH Units (7.32-7.45) L 09/08/16 04:12 ABG pCO2 59 mmHg (35-45) H 09/08/16 04:12 ABG pO2 66 mmHg (85-104) L 09/08/16 04:12 ABG Total CO2 26.5 mEq/L (20-26) H 09/08/16 04:12 ABG O2 Saturation 88 % (95-98) L 09/08/16 04:12 ABG Base Excess -3.0 mEq/L (-2.0 to 3.0) L 09/08/16 04:12 VBG pH 7.23 pH Units (7.32-7.42) L 09/07/16 02:14 VBG pCO2 60 mmHg (41-51) H 09/07/16 02:14 VBG pO2 49 mmHg (25-40) H 09/07/16 02:14 BUN 44 mg/dL (8-26) H 09/09/16 06:52 Creatinine 2.20 mg/dL (0.72-1.25) H 09/09/16 06:52 Est GFR ( Amer) 35 (> 60) L 09/09/16 06:52 Est GFR (Non-Af Amer) 29 (> 60) L 09/09/16 06:52 Glucose 161 mg/dL (70-99) H 09/09/16 06:52 POC Glucose 160 (58-89) H 09/09/16 07:20 Calculated Osmolality 309 (280-300) H 09/09/16 06:52 Calcium 8.1 mg/dL (8.6-10.8) L 09/09/16 06:52 Iron 32 mcg/dL (65-175) L 09/06/16 06:12 % Saturation 10 % (20-55) L 09/06/16 06:12 ALT 56 Units/L (0-55) H 09/09/16 06:52 B-Natriuretic Peptide 241 pg/mL (0-100) H 09/05/16 17:18 Albumin 3.2 g/dL (3.5-5.0) L 09/09/16 06:52 Albumin/Globulin Ratio 1.0 (1.1-2.2) L 09/09/16 06:52 - Microbiology Findings Microbiology Findings: Microbiology, Last 48 Hours 09/07/16 02:14 Blood Culture - Preliminary Peripheral Venipuncture No growth. 09/07/16 02:14 Blood Culture - Preliminary Peripheral Venipuncture No growth. - Clinical Findings Intake & Output: Intake & Output 09/08/16 09/09/16 09/09/16 23:59 07:59 15:59 Intake Total 1420 / 1420 1900 / 1900 Output Total 800 / 800 700 / 700 Balance 620 / 620 1200 / 1200 Weight 104.9 kg Consult Discharge Plan - Plan Referrals: Tommie Srivastava DO [Primary Care Provider] - <Milly Peterson Yasmine - Last Filed: 09/09/16 16:53> Date of Encounter: 09/09/16 Objective PUL Vital signs: Last Vital Signs Temp 98.5 F 09/09/16 12:00 Pulse 86 09/09/16 13:00 Resp 16 09/09/16 13:00 BP 179/74 09/09/16 13:00 Pulse Ox 95 09/09/16 13:00 Results - Laboratory Findings CBC and BMP: 09/09/16 06:52 09/09/16 06:52 ABG ABG pH 7.23 pH Units (7.32-7.45) L 09/08/16 04:12 ABG pCO2 59 mmHg (35-45) H 09/08/16 04:12 ABG pO2 66 mmHg (85-104) L 09/08/16 04:12 ABG O2 Saturation 88 % (95-98) L 09/08/16 04:12 PT/INR, D-dimer PT 13.5 Seconds (9.4-12.1) H 09/09/16 06:52 Abnormal lab findings: Abnormal lab results WBC 11.4 K/mcL (4.3-11.1) H 09/09/16 06:52 RBC 3.40 M/mcL (4.19-5.50) L 09/09/16 06:52 Hgb 9.5 g/dL (12.9-16.9) L 09/09/16 06:52 Hct 28.8 % (37.5-50.1) L 09/09/16 06:52 MCH 27.9 pg (28.0-33.3) L 09/09/16 06:52 Neutrophils # 10.7 K/mcL (1.6-8.9) H 09/09/16 06:52 Lymphocytes # 0.3 K/mcL (0.6-4.6) L 09/09/16 06:52 Platelet Estimate Slight Decrease (Normal) L 09/07/16 02:14 PT 13.5 Seconds (9.4-12.1) H 09/09/16 06:52 APTT 23.7 Seconds (26.0-36.0) L 09/07/16 02:14 ABG pH 7.23 pH Units (7.32-7.45) L 09/08/16 04:12 ABG pCO2 59 mmHg (35-45) H 09/08/16 04:12 ABG pO2 66 mmHg (85-104) L 09/08/16 04:12 ABG Total CO2 26.5 mEq/L (20-26) H 09/08/16 04:12 ABG O2 Saturation 88 % (95-98) L 09/08/16 04:12 ABG Base Excess -3.0 mEq/L (-2.0 to 3.0) L 09/08/16 04:12 VBG pH 7.23 pH Units (7.32-7.42) L 09/07/16 02:14 VBG pCO2 60 mmHg (41-51) H 09/07/16 02:14 VBG pO2 49 mmHg (25-40) H 09/07/16 02:14 BUN 44 mg/dL (8-26) H 09/09/16 06:52 Creatinine 2.20 mg/dL (0.72-1.25) H 09/09/16 06:52 Est GFR ( Amer) 35 (> 60) L 09/09/16 06:52 Est GFR (Non-Af Amer) 29 (> 60) L 09/09/16 06:52 Glucose 161 mg/dL (70-99) H 09/09/16 06:52 POC Glucose 152 (58-89) H 09/09/16 11:24 Calculated Osmolality 309 (280-300) H 09/09/16 06:52 Calcium 8.1 mg/dL (8.6-10.8) L 09/09/16 06:52 Iron 32 mcg/dL (65-175) L 09/06/16 06:12 % Saturation 10 % (20-55) L 09/06/16 06:12 ALT 56 Units/L (0-55) H 09/09/16 06:52 B-Natriuretic Peptide 241 pg/mL (0-100) H 09/05/16 17:18 Albumin 3.2 g/dL (3.5-5.0) L 09/09/16 06:52 Albumin/Globulin Ratio 1.0 (1.1-2.2) L 09/09/16 06:52 - Microbiology Findings Microbiology Findings: Microbiology, Last 48 Hours 09/07/16 02:14 Blood Culture - Preliminary Peripheral Venipuncture No growth. 09/07/16 02:14 Blood Culture - Preliminary Peripheral Venipuncture No growth. - Clinical Findings Intake & Output: Intake & Output 09/09/16 09/09/16 09/09/16 07:59 15:59 23:59 Intake Total 1900 / 1900 Output Total 700 / 700 300 / 300 Balance 1200 / 1200 -300 / -300 Weight 104.9 kg - Attending Attestation I examined this patient and my medical decision-making was reviewed with the CLINICAL EVALUATOR/PA/Advanced Practice Nurse/Resident Physician. I agree with the documented findings, disposition and treatment plan as described except to the extent set forth below. Patient seen and examined. Labs, radiology, chart personally reviewed. Agree with resident's history and physical, assessment, plan with following comments: COMPRESSOR HOUSE OPERATOR: Patient follows commands, Pulmonary: Acceptable oxygenation and ventilation. Continue bronchodilators and wean off steroids Cardiovascular: Hypertension and patient to resume home medication and nephrology follow-up GI: Nutrition per dietary and GI prophylaxis per routine. GI follow-up for colonoscopy Heme: DVT prophylaxis per routine ID: Stop antibiotics chest x-rays clear Renal; urine out put and renal funtion reviewed. Discussed with the manager mining Endorcine: blood glucose is monitored Lines: all lines checked and no evidence of infections Skin: skin care to prevent pressure ulcers per nursing routine care Patient was stable to be transferred to the floor
--- NOTE | 2016-09-09 10:05 | Anesthesia Evaluation PreOp ---
Date of Encounter: 09/09/16 Time of Encounter: 10:03 - Past History Planned Operation: EGD/Colonoscopy Cardiac History: [place], HTN, Hyperlipidemia Pulmonary History: Former smoker (quit in 1963 \, smoked for 7 years), Asthma, Other (acute respiratory failure, aspiration pneumonia) [employer] History: Denies Any Significant HX Other Medical History: Renal (acute kidney injury superimposed on CKD stage 3), Diabetes Type II, GERD Anesthesia History: No Prior Anesthetic Complications, Past Anesthesia Alcohol Use: none Drug use: none Medications and Allergies Aspirin 81 mg PO DAILY 12/15/15 [History] Carvedilol 25 mg PO AD 12/15/15 [History] Citalopram Hydrobromide [Citalopram HBr] 40 mg PO DAILY 12/15/15 [History] Gabapentin [Neurontin] 300 mg PO TID 12/15/15 [History] Lisinopril [Zestril] 30 mg PO DAILY 12/15/15 [History] Lovastatin [Mevacor] 20 mg PO DAILY 12/15/15 [History] Oxycodone HCl [Roxicodone 30 MG Immed Release] 30 mg PO Q4H PRN 12/15/15 [ History] Pantoprazole Sodium 40 mg PO DAILY 12/15/15 [History] Albuterol Neb [Proventil Neb] 2.5 mg IH TID PRN 04/04/16 [History] Alprazolam 2 mg PO TID PRN 04/04/16 [History] Beclomethasone Diprop 40mcg [QVAR 40 mcg] 1 puff IH BID 04/04/16 [History] Amlodipine [Norvasc] 10 mg PO DAILY 09/07/16 [History] Diclofenac Sodium [Voltaren] 2 gm TP AD 09/07/16 [History] Fluticasone Propionate Nasal [Flonase] 50 mcg NS DAILY 09/07/16 [History] Montelukast [Singulair] 10 mg PO DAILY 09/07/16 [History] Allergies tetanus toxoid, adsorbed Allergy (Verified 04/15/16 13:16) Swelling of Lip/Tongue/Throat - Meds/Allergy Pre-op Review Medications Reviewed: Yes Allergies Reviewed: Yes Beta Blockers on Current Med List: Yes If Beta Blockers taken, Date/Time (Last Dose taken): 09/09/2016 at 0617 Anesthesia Results - Labs 09/09/16 06:52 09/09/16 06:52 - Imaging EKG: report reviewed (09/05/2016 SR with SA) Additional studies: 04/03/2016 Echo normal LV size and systolic function LVEF 60% mild LV diastolic dysfunction mild AR 12/16/2015 Stress EF 67% medium sized, moderate intensity, fixed inferior perfusion defect possibly due to a prior infarct perfusion imaging was negative for ischemia or infarct Anesthesia Exam Vital Signs/O2 Sat/Glucose, Most Recent Temp Pulse Resp BP Pulse Ox 97.9 F 84 18 179/94 92 L 09/09/16 07:43 09/09/16 09:00 09/09/16 09:00 09/09/16 09:00 09/09/16 09:00 Blood Glucose* 160 Height: 5'7''/1.7 m Weight: 231 lbs/104.9 kg NPO (# of Hours): 8 Pain Scale: 0 Pain Scale Used: Numeric (1 - 10) - HEENT Pupil (Motor): EOMI Mallampati: II Teeth: Edentulous Oral Opening: Greater than 3 - [employer] LOC: Oriented [employer] Motor: Normal RUE, Normal LUE, Normal RLE, Normal LLE, Normal Face [employer] Sensory: Normal: RUE, LUE, RLE, Face, Deficit: LLE - Cardiac Rhythm: Regular Murmur: None - Pulmonary Breath Sounds: bilateral Clear (expiratory wheezes) Respiratory Effort: Symmetrical Anesthesia Assess/Plan ASA Score: [address] [place] Scale for Level of Consciousness: Cooperative, oriented, and tranquil Anesthetic Plan: MAC Monitoring Plan: Standard Monitors
--- NOTE | 2016-09-09 10:32 | Nephrology Progress Note ---
Date of Encounter: 09/09/16 Time of Encounter: 10:31 - Assessment and Plan (1) Acute kidney failure, unspecified Current Visit: Yes Status: Acute Patient has acute kidney injury superimposed on chronic kidney disease. His renal function is improving. Blood pressure is elevated. We will make some adjustments to his antihypertensive medications. Qualifiers: Acute renal failure type: unspecified Qualified Code(s): N17.9 - Acute kidney failure, unspecified (2) Acute bronchitis Current Visit: Yes Status: Acute Qualifiers: Bronchitis organism: unspecified organism Qualified Code(s): J20.9 - Acute bronchitis, unspecified (3) CKD (chronic kidney disease) stage 3, GFR 30-59 ml/min Current Visit: No Status: Chronic (4) HTN (hypertension) Current Visit: No Status: Chronic Qualifiers: Hypertension type: essential hypertension Qualified Code(s): I10 - Essential (primary) hypertension Subjective Principal diagnosis: Asthma exacerbation Interval history: Patient is extubated. His renal function is improving. Urine output was 3.8 L. Blood pressure is elevated. Objective - Vital Signs Vital signs: Vital Signs Temp Pulse Resp BP Pulse Ox 09/09/16 10:00 81 18 178/90 92 L 09/09/16 09:00 84 18 179/94 92 L 09/09/16 08:11 90 18 179/96 92 L 09/09/16 07:43 97.9 F 09/09/16 07:30 18 92 L 09/09/16 06:00 90 18 167/97 92 L 09/09/16 05:00 92 16 193/99 93 L 09/09/16 04:03 15 95 09/09/16 04:00 12 170/90 99 09/09/16 03:29 81 09/09/16 03:00 97.8 F 80 16 173/86 93 L 09/09/16 02:00 79 13 147/77 95 09/09/16 01:00 83 15 147/76 95 09/09/16 00:14 85 09/09/16 00:00 83 15 153/83 95 09/08/16 23:38 17 96 09/08/16 23:00 97.9 F 87 14 153/83 95 09/08/16 22:00 85 14 145/75 96 09/08/16 21:00 84 13 135/69 98 09/08/16 20:12 81 02/16/17 20:00 81 15 143/69 98 09/08/16 19:34 15 96 09/08/16 19:00 98.3 F 85 17 142/71 96 09/08/16 18:00 87 12 117/75 95 09/08/16 17:24 79 12 137/67 94 L 09/08/16 16:12 12 97 09/08/16 16:00 94 12 121/69 94 L 09/08/16 15:52 98.1 F 09/08/16 15:00 73 12 118/61 97 09/08/16 14:00 73 12 118/61 97 09/08/16 13:00 73 12 123/64 97 09/08/16 12:07 98.3 F 09/08/16 12:00 98.3 F 72 12 115/64 96 09/08/16 11:52 12 128/63 96 09/08/16 11:28 11 95 09/08/16 11:00 84 16 128/63 94 L Intake and Output 09/08/16 09/09/16 09/09/16 23:59 07:59 15:59 Intake Total 1420 / 1420 1900 / 1900 Output Total 800 / 800 700 / 700 Balance 620 / 620 1200 / 1200 Intake: IV Fluids 100 / 100 Zosyn 3.375 GM In 100 / 100 Dextrose 5% (Minibag+) 100 ML 100 ML @ 25 mls/hr IVPB Q12H [facility] Rx#: [id number] Oral 1320 / 1320 1900 / 1900 Output: Catheter 800 / 800 700 / 700 Other: Stool Size Small Large Stool Consistency liquid liquid formed Stool Color Brown Brown # Bowel Movements 1 1 Weight 104.9 kg Blood Glucose* 147 160 - General Appearance Exam: Patient is alert. He is in no acute distress. Lungs diminished breath sounds. Heart regular rate and rhythm. Abdomen is distended. [place] show no peripheral edema. - Lab 09/09/16 06:52 09/09/16 06:52 Most recent lab results ABG pH 7.23 pH Units (7.32-7.45) L 09/08/16 04:12 ABG pCO2 59 mmHg (35-45) H 09/08/16 04:12 ABG pO2 66 mmHg (85-104) L 09/08/16 04:12 ABG HCO3 24.7 mEQ/L (21-27) 09/08/16 04:12 ABG O2 Saturation 88 % (95-98) L 09/08/16 04:12 Calcium 8.1 mg/dL (8.6-10.8) L 09/09/16 06:52 Phosphorus 3.5 mg/dL (2.3-4.7) 09/07/16 11:22 Magnesium 1.6 mg/dL (1.6-2.6) 09/07/16 02:14 Consult Discharge Plan - Plan Referrals: Tommie Srivastava DO [Primary Care Provider] -
[2016-09-09] MEDS ORDERED: amLODIPine 5 MG TABLET PO SCH ×3 (10:54→21:00)
--- NOTE | 2016-09-09 11:01 | Anesthesia Evaluation Post Op ---
Date of Encounter: 09/09/16 Time of Encounter: 11:01 - Vital Signs Vital Signs: Vital Signs/O2 Sat/Glucose, Most Current Temp Pulse Resp BP Pulse Ox 09/09/16 10:26 75 18 239/91 92 L 09/09/16 10:00 81 18 178/90 92 L 09/09/16 09:00 84 18 179/94 92 L 09/09/16 08:11 90 18 179/96 92 L 09/09/16 07:43 97.9 F 09/09/16 07:30 18 92 L - Lungs Lungs: Clear Ascult./Percussion - Airway Airway: Non-obstructed - Cardiovascular Regular Rate, Baseline Rhythm - Mental Status Mental Status: Alert & Oriented, Answers Appropriately - Pain Pain Scale: 0 Pain Scale used: Numeric (1 - 10) - Nausea Vomiting Nausea Vomiting: Not Present - Hydration Hydration: NPO, Sargent catheter - Discharge PostOp Status: Transfer Patient to floor
[2016-09-09] MEDS: Gabapentin 300 MG CAPSULE PO SCH ×2 (11:45→20:01)
[2016-09-09] MEDS: Aspirin Enteric Coated 81 MG Tablet PO SCH (11:45)
[2016-09-09] MEDS ORDERED: Naloxone 0.4 MG/ML INJ IVP PRN (12:26)
[2016-09-09] MEDS ORDERED: Dextrose Gel 15 GM PO PRN ×2 (12:26)
[2016-09-09] MEDS ORDERED: *HR* Dextrose 50 % in Water (Syg) 50 ML SYRINGE IVP PRN (12:26)
[2016-09-09] MEDS ORDERED: *HR* LORazepam 2 MG/ML VIAL IVP PRN (12:26)
[2016-09-09] MEDS ORDERED: Albuterol 2.5 MG/3 ML NEBULIZER IH PRN (12:26)
[2016-09-09] MEDS ORDERED: D5% in Water 1,000 ML IV PRN (12:26)
[2016-09-09] MEDS: amLODIPine 5 MG TABLET PO SCH (14:06)
[2016-09-09] MEDS: Acetaminophen 325 MG TABLET PO PRN (15:23)
[2016-09-09] MEDS: Pantoprazole 40 MG VIAL IVP SCH (15:24)
[2016-09-09] MEDS ORDERED: Tetracaine/Benzocaine/Butamben 200MG/SPRAY (100SPY/BOT) ONE (15:50)
[2016-09-09] MEDS ORDERED: Pantoprazole 40 MG VIAL IVPB SCH (16:30)
[2016-09-09] MEDS ORDERED: methylPREDNISolone 125 MG/2 ML VIAL IVP SCH (18:00)
[2016-09-09] MEDS ORDERED: Budesonide/Formoterol 160/4.5 MDI IH SCH (22:00)
[2016-09-10] MEDS: *HR* HYDROmorphone (PF) 1 MG/ML SYRINGE IVP PRN ×2 (00:58→06:47)
[2016-09-10] MEDS: Ondansetron 4 MG/2 ML VIAL IVP PRN ×2 (01:11→11:40)
[2016-09-10] MEDS: Ipratropium/Albuterol Neb 3 ML IH SCH ×7 (01:22→23:48)
[2016-09-10] MEDS: *HR* Heparin 5,000 UNIT/ML VIAL SQ SCH ×2 (06:44→18:33)
[2016-09-10] MEDS: amLODIPine 5 MG TABLET PO SCH (08:52)
[2016-09-10] MEDS: Isosorbide MONOnitrate (24 HR) 60 MG TAB.ER.24H PO SCH (08:52)
[2016-09-10] MEDS: Gabapentin 300 MG CAPSULE PO SCH ×2 (08:53→20:27)
[2016-09-10] MEDS: hydrALAZINE 25 MG TABLET PO SCH ×3 (08:53→20:26)
[2016-09-10] MEDS: Pantoprazole 40 MG VIAL IVP SCH (08:53)
[2016-09-10] MEDS: predniSONE 10 MG TABLET PO SCH (08:53)
[2016-09-10] MEDS: Aspirin Enteric Coated 81 MG Tablet PO SCH (08:53)
[2016-09-10] MEDS: Insulin LISPRO 300 UNITS/3 ML VIAL SQ SCH ×4 (08:54→20:27)
--- NOTE | 2016-09-10 09:01 | Nephrology Progress Note ---
Date of Encounter: 09/10/16 Time of Encounter: 08:40 - Assessment and Plan (1) Acute kidney failure, unspecified Current Visit: Yes Status: Acute LEE ANN/CKD 3 r/t HTN and nephrosclerosis. In setting of acute asthmatic bronchitis , acute illness, vomiting with decreased oral intake. No current labs available , ordered. Urine output 1L. Qualifiers: Qualifiers: Acute renal failure type: unspecified Qualified Code(s): N17.9 - Acute kidney failure, unspecified Subjective Principal diagnosis: Asthma exacerbation Interval history: Sitting on edge of bed, eating breakfast.No new complaints. Objective - Vital Signs Vital signs: Vital Signs Temp Pulse Resp BP Pulse Ox 09/10/16 07:50 16 96 09/10/16 06:53 98.3 F 88 16 198/87 95 09/10/16 05:15 98.3 F 79 18 177/72 95 09/10/16 03:48 18 88 L 09/10/16 01:52 85 187/71 09/10/16 00:43 98.1 F 82 16 194/75 92 L 09/09/16 18:48 15 185/75 95 09/09/16 17:11 83 174/75 09/09/16 16:05 18 95 09/09/16 13:00 86 16 179/74 95 09/09/16 12:30 90 15 188/78 95 09/09/16 12:00 98.5 F 83 16 177/84 97 09/09/16 11:33 98.0 F 09/09/16 11:22 70 09/09/16 11:20 70 18 179/85 92 L 09/09/16 11:19 18 92 L 09/09/16 10:26 75 18 239/91 92 L 09/09/16 10:00 81 18 178/90 92 L 09/09/16 09:00 84 18 179/94 92 L Intake and Output 09/09/16 09/10/16 09/10/16 23:59 07:59 15:59 Intake Total 250 / 250 60 / 60 Output Total 0 / 0 Balance 250 / 250 60 / 60 Intake: Oral 250 / 250 60 / 60 Output: Urine 0 / 0 Other: Meal Applesauce Percent of Meal Consumed 100% Weight 104.236 kg Blood Glucose* 155 149 Patient Weight 09/10/16 23:59 Weight 104.236 kg - General Appearance General appearance: Present: well-developed, well-nourished, appears started age EENT: Present: mucous membranes moist Neck: Present: no JVD Additional Comments: harsh breath sounds Cardiology: Present: regular rate, regular rhythm Additional Comments: mild pitting edema LE Gastrointestinal: Present: normoactive bowel sounds, no tenderness Integumentary: Present: warm and dry Neurologic: Present: alert and oriented x3 Psychiatric: Present: mood/affect appropriate, cooperative - Lab 09/09/16 06:52 09/09/16 06:52 Most recent lab results ABG pH 7.23 pH Units (7.32-7.45) L 09/08/16 04:12 ABG pCO2 59 mmHg (35-45) H 09/08/16 04:12 ABG pO2 66 mmHg (85-104) L 09/08/16 04:12 ABG HCO3 24.7 mEQ/L (21-27) 09/08/16 04:12 ABG O2 Saturation 88 % (95-98) L 09/08/16 04:12 Calcium 8.1 mg/dL (8.6-10.8) L 09/09/16 06:52 Phosphorus 3.5 mg/dL (2.3-4.7) 09/07/16 11:22 Magnesium 1.6 mg/dL (1.6-2.6) 09/07/16 02:14 Consult Discharge Plan - Plan Referrals: Tommie Srivastava DO [Primary Care Provider] -
[2016-09-10 09:54] LABS: Albumin 3.1 g/dL (3.5-5.0); Bilirubin,Total 0.6 mg/dL (0.2-1.2); Calcium 8.2 mg/dL (8.6-10.8); Globulin 3.2 g/dL (2.4-3.5); Potassium 3.5 mEq/L (3.5-4.5); Total Protein 6.3 g/dL (6.0-8.3)
[2016-09-10] MEDS ORDERED: *HR* Labetalol 20 MG/4 ML SYRINGE IVP PRN (10:30)
--- NOTE | 2016-09-10 10:30 | Internal Med Progress Note ---
Date of Encounter: 09/10/16 Time of Encounter: 09:45 - Assessment and plan (1) Acute respiratory failure Current Visit: Yes Status: Resolved Assessment and plan: Continue O2 supplementation as needed. Wean FiO2. Qualifiers: Respiratory failure complication: hypoxia and hypercapnia Qualified Code(s) : J96.01 - Acute respiratory failure with hypoxia; J96.02 - Acute respiratory failure with hypercapnia (2) Acute bronchitis with asthma with acute exacerbation Current Visit: Yes Status: Acute Assessment and plan: Improving. Continue DuoNebs. (3) Acute bronchitis Current Visit: Yes Status: Acute Assessment and plan: Negative respiratory panel. Improving clinically. Qualifiers: Bronchitis organism: unspecified organism Qualified Code(s): J20.9 - Acute bronchitis, unspecified (4) Anemia of chronic disease Current Visit: Yes Status: Chronic (5) Acute kidney injury superimposed on chronic kidney disease Current Visit: Yes Status: Acute Assessment and plan: Renal function is improving. Creatinine 1.68 today. Nephrology following. Continue to monitor and function and avoid nephrotoxic agents. (6) CAD (coronary artery disease) Current Visit: No Status: Chronic Assessment and plan: On aspirin, beta lorrie and statin. No chest pain at this time. Qualifiers: Coronary Disease-Associated Artery/Lesion type: tel[place] artery [place] vs. transplanted heart: telida heart Associated angina: angina presence unspecified Qualified Code(s): I25.10 - Atherosclerotic heart disease of tel[place] coronary artery without angina pectoris (7) CKD (chronic kidney disease) stage 3, GFR 30-59 ml/min Current Visit: No Status: Chronic (8) HTN (hypertension) Current Visit: Yes Status: Acute Assessment and plan: Accelerated hypertension. Blood pressures remain severely elevated. We will increase intravenous as needed IV hydralazine and add IV labetalol. Patient carvedilol dosage was also increased. Will monitor blood pressure closely. Qualifiers: Hypertension type: essential hypertension Qualified Code(s): I10 - Essential (primary) hypertension (9) DVT prophylaxis Current Visit: Yes Status: Acute Assessment and plan: On subcutaneous heparin (10) Anemia Current Visit: Yes Status: Acute Assessment and plan: Likely due to chronic kidney disease. Will check iron levels, folic acid and vitamin B12 levels. Qualifiers: Anemia type: other cause Other causes of anemia: chronic disease, kidney Qualified Code(s): N18.9 - Chronic kidney disease, unspecified; D63.1 - Anemia in chronic kidney disease - Subjective Interval history: Patient complains of a headache and nausea. His blood pressure has been severely elevated. Denies any blurred vision. No chest pain. shortness of breath is improving. - Constitutional Vitals: Temp Pulse Resp BP Pulse Ox 98.3 F 88 16 198/87 96 09/10/16 06:53 09/10/16 06:53 09/10/16 07:50 09/10/16 06:53 09/10/16 07:50 General appearance: Present: cooperative, mild distress, A&O X 3, obese, answers questions appropriately - Respiratory Respiratory exam: Present: CTAB, prolonged expiratory phase. Absent: accessory muscle use, rales, rhonchi, wheezes - Cardiovascular Cardiovascular exam: Present: RRR, +S1, +S2. Absent: diastolic murmur, gallop, rubs, systolic murmur - GI/Abdominal GI/Abdominal exam: Present: normal bowel sounds, soft, no peritoneal signs. Absent: distended, tenderness - Extremities Exam Extremities exam: Present: warm, radial pulses palpable and symetrical. Absent : calf tenderness, cyanotic, pedal edema - Neurological Exam Neurological exam: Present: alert, oriented X3, no focal deficits. Absent: facial droop, speech deficit - Skin Skin exam: Present: dry, intact Internal Medicine: Result - Labs CBC & Chem 7: 09/09/16 06:52 09/10/16 09:29 Labs: BMP 09/10/16 09:29 Sodium 145 Potassium 3.5 Chloride 109 Carbon Dioxide 24 BUN 38 H Creatinine 1.68 H Glucose 200 H Calcium 8.2 L Liver Function 09/10/16 Range/Units 09:29 Total Bilirubin 0.6 (0.2-1.2) mg/dL AST 50 H (5-34) Units/L ALT 103 H (0-55) Units/L Alkaline Phosphatase 49 (38-126) Units/L Albumin 3.1 L (3.5-5.0) g/dL - ABG Interpretation ABG results: ABG ABG pH 7.23 pH Units (7.32-7.45) L 09/08/16 04:12 ABG pCO2 59 mmHg (35-45) H 09/08/16 04:12 ABG pO2 66 mmHg (85-104) L 09/08/16 04:12 ABG O2 Saturation 88 % (95-98) L 09/08/16 04:12 PT/INR, D-dimer PT 13.5 Seconds (9.4-12.1) H 09/09/16 06:52 - Impressions Impressions Abdomen/Pelvis CT 09/07/16 11:30 IMPRESSION: 1. Focal stranding within the right upper quadrant predominately adjacent to the second portion of the duodenum and hepatic flexure. Findings favor a duodenal process such as duodenitis or peptic ulcer disease and less likely a colonic process. 2. Small bilateral pleural effusions with adjacent atelectasis. Consolidative opacities in the lingula and left lower lobe are felt to be related to atelectasis given volume loss. Superimposed pneumonia is not entirely excluded. 3. Age-indeterminate mild anterior wedge compression deformity at the T7 vertebral body. 4. Mild intra and extrahepatic biliary duct dilation slightly increased since the prior exam. Recommend correlation with LFTs. Otherwise findings are likely related to post cholecystectomy changes. 5. A 6.5 cm hyperdense area within the cecum which may represent consolidated stool, however, mass is not entirely excluded and can be correlated with colonoscopy once acute issues have resolved. D/ / 09/07/2016 12:41:37 Portia Glover MD / Jacquelyn Smith Interpreting Provider: Portia Glover MD Chest CT 09/07/16 11:30 IMPRESSION: 1. Focal stranding within the right upper quadrant predominately adjacent to the second portion of the duodenum and hepatic flexure. Findings favor a duodenal process such as duodenitis or peptic ulcer disease and less likely a colonic process. 2. Small bilateral pleural effusions with adjacent atelectasis. Consolidative opacities in the lingula and left lower lobe are felt to be related to atelectasis given volume loss. Superimposed pneumonia is not entirely excluded. 3. Age-indeterminate mild anterior wedge compression deformity at the T7 vertebral body. 4. Mild intra and extrahepatic biliary duct dilation slightly increased since the prior exam. Recommend correlation with LFTs. Otherwise findings are likely related to post cholecystectomy changes. 5. A 6.5 cm hyperdense area within the cecum which may represent consolidated stool, however, mass is not entirely excluded and can be correlated with colonoscopy once acute issues have resolved. D/ / 09/07/2016 12:41:37 Portia Glover MD / Jacquelyn Smith Interpreting Provider: Portia Glover MD Consult Discharge Plan - Plan Referrals: Tommie Srivastava DO [Primary Care Provider] - - Attending Attestation This document has been at least partially created by [employer] recognition technology by Dr. Rodaret. Errors in grammar, wording or other phrases may exist. If errors are found after the documentation is signed, they will be addressed individually in the addendum section of this document when appropriate.
[2016-09-10] MEDS: Acetaminophen 325 MG TABLET PO PRN (23:41)
[2016-09-11] MEDS: Ipratropium/Albuterol Neb 3 ML IH SCH ×3 (05:44→12:02)
[2016-09-11 06:10] LABS: Basophils % 0.1 %; Hematocrit 26.3 % (37.5-50.1); Hemoglobin 8.9 g/dL (12.9-16.9); Immature Granulocytes % 4.3 % (0-4); Lymphocytes # 0.6 K/mcL (0.6-4.6); Lymphocytes % 7.7 %; Mean Corpuscular HGB Conc 33.8 g/dL (31.6-35.5); Mean Corpuscular Hemoglobin 28.5 pg (28.0-33.3); Mean Corpuscular Volume 84.3 fL (83.0-100.0); Mean Platelet Volume 9.5 fL (9.4-12.4); Monocytes # 0.8 K/mcL (0.0-1.3); Monocytes % 10.9 %; Neutrophils # 5.7 K/mcL (1.6-8.9); Platelet Count 126 K/mcL (140-400); Red Blood Count 3.12 M/mcL (4.19-5.50); Red Cell Distribution Width 13.5 % (11.5-14.5)
[2016-09-11 06:26] LABS: Calcium 8.1 mg/dL (8.6-10.8); Potassium 3.6 mEq/L (3.5-4.5)
[2016-09-11] MEDS: *HR* Heparin 5,000 UNIT/ML VIAL SQ SCH (06:45)
[2016-09-11 07:01] LABS: Folate 14.5 ng/mL (7.0-31.4)
[2016-09-11] MEDS: Insulin LISPRO 300 UNITS/3 ML VIAL SQ SCH ×2 (08:15→10:51)
[2016-09-11] MEDS: hydrALAZINE 25 MG TABLET PO SCH (08:20)
[2016-09-11] MEDS: Isosorbide MONOnitrate (24 HR) 60 MG TAB.ER.24H PO SCH (08:20)
[2016-09-11] MEDS: Aspirin Enteric Coated 81 MG Tablet PO SCH (08:21)
[2016-09-11] MEDS: amLODIPine 5 MG TABLET PO SCH (08:21)
[2016-09-11] MEDS: Gabapentin 300 MG CAPSULE PO SCH (08:22)
[2016-09-11] MEDS: predniSONE 10 MG TABLET PO SCH (08:22)
[2016-09-11] MEDS: Pantoprazole 40 MG VIAL IVP SCH (08:22)
--- NOTE | 2016-09-11 09:25 | Nephrology Progress Note ---
Date of Encounter: 09/11/16 Time of Encounter: 09:10 - Assessment and Plan (1) Acute kidney failure, unspecified Current Visit: Yes Status: Acute LEE ANN/CKD 3 r/t HTN and nephrosclerosis. In setting of acute asthmatic bronchitis , acute illness, vomiting with decreased oral intake. Creat 1.43, patient baseline. No documented urine output, patient states voiding liberally. If discharged will follow in office. Qualifiers: Qualifiers: Acute renal failure type: unspecified Qualified Code(s): N17.9 - Acute kidney failure, unspecified Subjective Principal diagnosis: Asthma exacerbation Interval history: Resting in bed. States breathing easy. No new complaints. Wants to go home today. Objective - Vital Signs Vital signs: Vital Signs Temp Pulse Resp BP Pulse Ox 09/11/16 06:46 98.6 F 80 18 160/73 94 L 09/11/16 03:53 98.2 F 65 18 175/88 98 09/10/16 23:48 16 98 09/10/16 23:00 98.6 F 72 18 180/72 99 09/10/16 19:29 97.9 F 71 20 169/73 97 09/10/16 18:38 16 98 09/10/16 15:41 98.2 F 74 18 169/67 94 L 09/10/16 15:27 17 98 09/10/16 11:14 18 98 09/10/16 10:44 98.5 F 78 18 178/81 97 Intake and Output 09/10/16 09/11/16 09/11/16 23:59 07:59 15:59 Intake Total 110 / 110 240 / 240 Balance 110 / 110 240 / 240 Intake: Oral 110 / 110 240 / 240 Other: Meal Dinner Breakfast Percent of Meal Consumed 20% 100% Stool Size Moderate Stool Characteristics Normal for Patient # Voids 1 # Bowel Movements 1 Weight 105 kg Blood Glucose* 137 109 Patient Weight 09/11/16 23:59 Weight 105 kg - General Appearance General appearance: Present: well-developed, well-nourished, appears started age , obese EENT: Present: mucous membranes moist Neck: Present: no JVD Respiratory: Present: clear Cardiology: Present: no edema, regular rate, regular rhythm Gastrointestinal: Present: normoactive bowel sounds, no tenderness Integumentary: Present: warm and dry Neurologic: Present: alert and oriented x3 Psychiatric: Present: mood/affect appropriate, cooperative - Lab 09/11/16 05:40 09/11/16 05:40 Most recent lab results ABG pH 7.23 pH Units (7.32-7.45) L 09/08/16 04:12 ABG pCO2 59 mmHg (35-45) H 09/08/16 04:12 ABG pO2 66 mmHg (85-104) L 09/08/16 04:12 ABG HCO3 24.7 mEQ/L (21-27) 09/08/16 04:12 ABG O2 Saturation 88 % (95-98) L 09/08/16 04:12 Calcium 8.1 mg/dL (8.6-10.8) L 09/11/16 05:40 Phosphorus 3.5 mg/dL (2.3-4.7) 09/07/16 11:22 Magnesium 1.6 mg/dL (1.6-2.6) 09/07/16 02:14 Consult Discharge Plan - Plan Referrals: Tommie Srivastava DO [Primary Care Provider] -
[2016-09-11 10:42] VITALS: BP 161/58
[2016-09-11] MEDS: Acetaminophen 325 MG TABLET PO PRN (11:03)
[2016-09-11] MEDS ORDERED: *HR* OxyCODONE Immed Rel 5 MG TABLET PO PRN (13:32)
--- NOTE | 2016-09-11 13:46 | Discharge Summary ---
Date of Encounter: 09/11/16 Time of Encounter: 13:39 - Discharge Diagnosis (1) Acute respiratory failure Priority: Primary Status: Resolved Qualifiers: Respiratory failure complication: hypoxia and hypercapnia Qualified Code(s) : J96.01 - Acute respiratory failure with hypoxia; J96.02 - Acute respiratory failure with hypercapnia (2) Acute bronchitis with asthma with acute exacerbation Priority: Secondary Status: Acute (3) Acute bronchitis Priority: Secondary Status: Acute Qualifiers: Bronchitis organism: unspecified organism Qualified Code(s): J20.9 - Acute bronchitis, unspecified (4) Anemia of chronic disease Priority: Secondary Status: Chronic (5) Acute kidney injury superimposed on chronic kidney disease Priority: Secondary Status: Acute (6) CAD (coronary artery disease) Priority: Secondary Status: Chronic Qualifiers: Coronary Disease-Associated Artery/Lesion type: ione artery [place] vs. transplanted heart: ione heart Associated angina: angina presence unspecified Qualified Code(s): I25.10 - Atherosclerotic heart disease of ione coronary artery without angina pectoris (7) CKD (chronic kidney disease) stage 3, GFR 30-59 ml/min Priority: Secondary Status: Chronic (8) HTN (hypertension) Priority: Secondary Status: Acute Qualifiers: Hypertension type: essential hypertension Qualified Code(s): I10 - Essential (primary) hypertension (9) DVT prophylaxis Priority: Secondary Status: Acute (10) Anemia Priority: Secondary Status: Acute Qualifiers: Anemia type: other cause Other causes of anemia: chronic disease, kidney Qualified Code(s): N18.9 - Chronic kidney disease, unspecified; D63.1 - Anemia in chronic kidney disease - Discharge Medications Prescriptions: Aspirin Enteric Coated [Aspirin EC] 81 mg PO DAILY #30 tablet.dr HydrALAZINE 50 mg PO TID #180 tablet Isosorbide MONOnitrate (24 HR) [Imdur] 60 mg PO DAILY #30 tab.er.24h PredniSONE 10 mg PO DAILY 9 Days Home Medications: Aspirin 81 mg PO DAILY 12/15/15 [History] Carvedilol 25 mg PO AD 12/15/15 [History] Citalopram Hydrobromide [Citalopram HBr] 40 mg PO DAILY 12/15/15 [History] Gabapentin [Neurontin] 300 mg PO TID 12/15/15 [History] Lovastatin [Mevacor] 20 mg PO DAILY 12/15/15 [History] Pantoprazole Sodium 40 mg PO DAILY 12/15/15 [History] Albuterol Neb [Proventil Neb] 2.5 mg IH TID PRN 04/04/16 [History] Alprazolam 2 mg PO TID PRN 04/04/16 [History] Beclomethasone Diprop 40mcg [QVAR 40 mcg] 1 puff IH BID 04/04/16 [History] Amlodipine [Norvasc] 10 mg PO DAILY 09/07/16 [History] Diclofenac Sodium [Voltaren] 2 gm TP AD 09/07/16 [History] Fluticasone Propionate Nasal [Flonase] 50 mcg NS DAILY 09/07/16 [History] Montelukast [Singulair] 10 mg PO DAILY 09/07/16 [History] Aspirin Enteric Coated [Aspirin EC] 81 mg PO DAILY #30 tablet. 09/11/16 [Rx] HydrALAZINE 50 mg PO TID #180 tablet 09/11/16 [Rx] Isosorbide MONOnitrate (24 HR) [Imdur] 60 mg PO DAILY #30 tab.er.24h 09/11/16 [ Rx] Oxycodone HCl [Roxicodone 30 MG Immed Release] 30 mg PO Q8H PRN #0 09/11/16 [Rx ] PredniSONE 10 mg PO DAILY 9 Days 09/11/16 [Rx] Allergies/Adverse Reactions: Allergies tetanus toxoid, adsorbed Allergy (Verified 04/15/16 13:16) Swelling of Lip/Tongue/Throat Procedures/tests Complete & Pending: Procedures Performed prior 72 hours Category Date Time Status CT head/brain wo con [CT] Stat Cat Scan 09/11/16 10:48 Draft Date of admission: 09/07/16 01:48 Primary care physician: Tommie Srivastava, Consults: 09/07/16 03:15 Consult to Pulmonology [CONS] Routine Consulting Provider: Pulm [facility] Sleep Shani Reason for Consult: VDRF Call Completed: Yes 09/08/16 11:41 Consult to Gastroenterology [CONS] Routine Consulting Provider: Gastroenterology Shani Reason for Consult: Hx of esophageal rupture s/p banding. CT abd: 6.5 cm hyperdense area in cecum. stool vs. mass Call Completed: No 09/08/16 14:56 Consult to Speech Therapy [CONS] Routine Comment: Evaluate, develop and implement POC Reason for Consult: possible aspiration, s/p extubation. Call Completed: No Discharging clinician: Rocio Rodarte Anticipated date of discharge: 09/11/16 - Patient Status Disposition: Home, Self-Care Condition: Good Overall status at discharge: patient is progressing back to baseline - Discharge Instructions Instructions: Asthma (DC), Chronic Obstructive Pulmonary Disease (DC), Chronic Hypertension (DC) Follow Up With: Tommie Srivastava DO [Primary Care Provider] - (In 1-2 weeks) Forms: ED Satisfaction Letter - Diet and Activity Activity: increase activity as tolerated Diet: low fat, low cholesterol, low salt diet Hospital course: Mr. Thrasher is a 75 year old male with history of coronary artery disease, chronic kidney disease stage III, hypertension and reactive airway disease/ asthma was admitted here with acute bronchitis and exacerbation of asthma. He was initially started on treatment for this with IV steroids and Atrovent nebulizer treatment. He developed acute respiratory failure and needed to be intubated and transferred to the ICU. He was managed in ICU by the director of accounts receivable and this treatment was continued. He underwent a chest and abdominal CT scan which showed some abnormal findings in his duodenum and the cecum. As a GI was consulted and patient underwent upper GI endoscopy and colonoscopy which did not show any acute abnormalities. He was extubated and transferred to the floor. He has been doing well. We are clinically getting better. His blood pressure has been elevated. His lisinopril has been stopped due to worsening renal function and this probably played a role in his accelerated hypertension. He has been placed back on his other medications and he has been receiving intermittent hydralazine IV as needed to control his blood pressure. Presently his blood pressure has improved but not back to baseline. As his kidney function improves, he may be placed back on lisinopril which appears to be controlling his blood pressures are better. He will complete a short course of steroid taper. He Will follow up with his primary care provider for further management. - Time Spent with Patient Total time spent providing and/or coordinating discharge services: Greater than 30 minutes (40 min) - Constitutional Vitals: Temp Pulse Resp BP Pulse Ox 98.4 F 77 16 161/58 97 09/11/16 10:39 09/11/16 10:39 09/11/16 10:39 09/11/16 10:39 09/11/16 10:39 General appearance: Present: cooperative, mild distress, A&O X 3, obese, answers questions appropriately - Respiratory Respiratory exam: Present: CTAB, prolonged expiratory phase. Absent: accessory muscle use, rales, rhonchi - Cardiovascular Cardiovascular exam: Present: RRR, +S1, +S2. Absent: diastolic murmur, gallop, rubs, systolic murmur - GI/Abdominal GI/Abdominal exam: Present: normal bowel sounds, soft, no peritoneal signs. Absent: distended, tenderness - Extremities Exam Extremities exam: Present: warm, radial pulses palpable and symetrical. Absent : calf tenderness, cyanotic, pedal edema - Neurological Exam Neurological exam: Present: alert, oriented X3, no focal deficits. Absent: facial droop, speech deficit - Skin Skin exam: Present: dry, intact - Attending Attestation This document has been at least partially created by [employer] voice recognition technology by Dr. Rodarte. Errors in grammar, wording or other phrases may exist. If errors are found after the documentation is signed, they will be addressed individually in the addendum section of this document when appropriate.
[2016-09-11] MEDS ORDERED: *HR* Propofol 500 MG/50 ML BOTTLE IVC ONE (14:54)
[2016-09-11] MEDS ORDERED: Lidocaine -MPF 2% 5 ML VIAL INFILT ONE (14:54)
== END 2016-09-11 14:55 | disposition home or self-care (01) | DRG 208 ==
LOC: 2ANU 17:01 → EMEROO 17:01 → SUATTDRO 18:35 → 2ANU 19:29 → ICNU 09-07 01:03 → 2ANU 09-09 12:13
PROVIDERS: ADMIT Nurse Practitioner Family; ATTEND Internal Medicine

== ENCOUNTER 2017-02-27 06:37 | Inpatient (IN) ==
--- NOTE | 2017-02-27 07:05 | Emergency Department Note ---
Disposition Clinical Impression: Colitis, Bronchitis, CKD (chronic kidney disease) Disposition: Home, Self-Care Condition: Fair Time of Disposition: 09:47 GI Bleed HPI - General Chief complaint: ED GI Bleed Stated complaint: "bleeding from bowel" Time Seen by Provider: 02/27/17 06:43 Source: patient, family Mode of arrival: private vehicle Limitations: no limitations Nursing Notes Reviewed: Yes Vital Signs Reviewed: Yes - History of Present Illness HPI Narrative: 76-year-old male presents to the emergency department with multiple complaints. Patient states that over the last 2 days he has noticed some blood in his stool. Patient states that while having a bowel movement early this morning he had a episode where he "passed out." Patient is unsure of how long he passed out for. He also describes some diffuse lower abdominal pain. He denies any pain with his bowel movements. He describes bright red blood in the toilet. He does not take any blood thinners besides a daily baby aspirin. He has no history of any GI bleeds in the past. Additionally he does note that he has had some wheezing over the last several days which is progressively worsened. He denies any fever, chills, nausea or vomiting. He denies any chest pain or shortness of breath. Patient does note that he recently started an over-the- counter supplement for weight loss. He has no additional complaints or concerns at this time. Pt Subjective Complaint: gross bloody stools, blood streaked stool Onset (ago): day(s) (2) Consistency: constant Severity: moderate Improves with: nothing Worsens with: nothing Context: medication/supplement use Associated symptoms: Reports: abdominal pain Treatments Prior to Arrival: none - Related Data Home Medications Medication Instructions Recorded Confirmed Aspirin 81 mg PO DAILY 12/15/15 09/07/16 Carvedilol 25 mg PO AD 12/15/15 09/07/16 Citalopram Hydrobromide 40 mg PO DAILY 12/15/15 09/07/16 [Citalopram HBr] Gabapentin [Neurontin] 300 mg PO TID 12/15/15 09/07/16 Lovastatin [Mevacor] 20 mg PO DAILY 12/15/15 09/07/16 Pantoprazole Sodium 40 mg PO DAILY 12/15/15 09/07/16 ALPRAZolam [Alprazolam] 2 mg PO TID PRN 04/04/16 09/07/16 Albuterol Neb [Proventil Neb] 2.5 mg IH TID PRN 04/04/16 09/07/16 Beclomethasone Diprop 40mcg [QVAR 1 puff IH BID 04/04/16 09/07/16 40 mcg] Diclofenac Sodium [Voltaren] 2 gm TP AD 09/07/16 09/07/16 Fluticasone Propionate Nasal 50 mcg NS DAILY 09/07/16 09/07/16 [Flonase] Montelukast [Singulair] 10 mg PO DAILY 09/07/16 09/07/16 amLODIPine [Norvasc] 10 mg PO DAILY 09/07/16 09/07/16 Previous Rx's Medication Instructions Recorded Aspirin Enteric Coated [Aspirin EC] 81 mg PO DAILY #30 tablet.dr 09/11/16 Isosorbide MONOnitrate (24 HR) 60 mg PO DAILY #30 tab.er.24h 09/11/16 [Imdur] Oxycodone HCl [Roxicodone 30 MG 30 mg PO Q8H PRN #0 09/11/16 Immed Release] hydrALAZINE [HydrALAZINE] 50 mg PO TID #180 tablet 09/11/16 predniSONE [PredniSONE] 10 mg PO DAILY 9 Days 09/11/16 Albuterol Sulfate [Proventil Hfa] 6.7 gm IH QID #1 hfa.aer.ad 11/10/16 Azithromycin [Zithromax] 250 mg PO DAILY #6 tablet 11/10/16 predniSONE [PredniSONE] 40 mg PO DAILY #10 tablet 11/10/16 Allergies Allergy/AdvReac Type Severity Reaction Status Date / Time tetanus toxoid, adsorbed Allergy Swelling Verified 04/15/16 13:16 of Lip/Tongue/Throat All systems ED: reviewed and negative except as stated. Constitutional: Denies: fever, chills Cardiovascular: Denies: chest pain, palpitations Respiratory: Denies: cough, dyspnea Gastrointestinal: Reports: abdominal pain, hematochezia. Denies: nausea, vomiting Genitourinary: Denies: urgency, dysuria, frequency Musculoskeletal: Denies: back pain, neck pain Integumentary: Denies: rash, abrasion, lesions Neurological: Denies: headache Psychiatric: Denies: anxiety, depression, suicidal thoughts, homicidal thoughts Endocrine: Denies: fatigue Hematological/Lymphatic: Denies: easy bleeding, easy bruising, lymphadenopathy Past Medical History - Past Medical History Attestation: Yes The following information was validated with the patient. Source: patient, nursing notes reviewed Medical history: Reports: asthma, COPD, coronary artery disease, hypertension, myocardial infarction, other Surgical history: Reports: cholecystectomy Psychiatric history: Reports: no psych history - Social History Smoking Status: Former smoker Smokeless Tobacco Status: No Alcohol use: Reports: none Drug use: Reports: none Physical Exam - General Limitations: no limitations General appearance: alert, in no apparent distress - Head Head exam: atraumatic, normocephalic, normal inspection - Eye Eye exam: Present: normal appearance, PERRL - Neck Neck exam: Present: normal inspection, full ROM, trachea midline - Chest Chest inspection: Present: normal inspection, symmetric chest wall rise - Respiratory Respiratory exam: Present: normal lung sounds bilaterally. Absent: respiratory distress - Cardiovascular Cardiovascular exam: Present: regular rate, normal rhythm, normal heart sounds - Abdominal Exam Abdominal exam: Present: soft, tenderness. Absent: guarding, rebound, rigidity , Cardozo's sign, tenderness at McBurney's Point Abdominal tenderness: Present: diffuse, mild - Extremities Exam Extremities exam: Present: normal inspection, full ROM. Absent: tenderness, pedal edema Course - Consultations Consultation #1: Discussed admission with the hospitalist for IV fluids, pain management, IV antibiotics and nausea control. Hospitalist accepts the patient. Patient verbalized understanding and agreement with plan of care. Additional analgesics have been ordered. Time: 09:46 Vital Signs Temperature 98.0 F 02/27/17 06:38 Pulse Rate 76 02/27/17 06:38 Respiratory Rate 16 02/27/17 06:38 Blood Pressure 171/73 02/27/17 06:38 O2 Sat by Pulse Oximetry 96 02/27/17 06:38 Temperature 98.0 F 02/27/17 06:38 Pulse Rate 78 02/27/17 09:27 Respiratory Rate 16 02/27/17 09:27 Blood Pressure 146/81 02/27/17 09:27 O2 Sat by Pulse Oximetry 93 02/27/17 09:27 Oxygen Delivery Oxygen Delivery Room Air GI Bleed - Medical Records Medical records reviewed: Yes I reviewed the patient's medical records. - Lab Data Lab results reviewed: Yes I reviewed the patient's lab results. Result diagrams: 02/27/17 07:21 02/27/17 07:21 Lab Results 02/27/17 02/27/17 02/27/17 Range/Units 07:21 07:21 07:21 WBC 7.3 (4.3-11.1) K/mcL RBC 4.12 L (4.19-5.50) M/mcL Hgb 11.1 L (12.9-16.9) g/dL Hct 34.5 L (37.5-50.1) % MCV 83.7 (83.0-100.0) fL MCH 26.9 L (28.0-33.3) pg MCHC 32.2 (31.6-35.5) g/dL RDW 13.1 (11.5-14.5) % Plt Count 167 (140-400) K/mcL MPV 9.9 (9.4-12.4) fL Immature Gran % 0.8 (0-4) % Seg Neutrophils % 70.2 % Lymphocytes % 14.9 % Monocytes % 9.2 % Eosinophils % 4.3 % Basophils % 0.6 % Neutrophils # 5.1 (1.6-8.9) K/mcL Lymphocytes # 1.1 (0.6-4.6) K/mcL Monocytes # 0.7 (0.0-1.3) K/mcL Eosinophils # 0.3 (0.0-0.6) K/mcL Basophils # 0.0 (0.0-0.2) K/mcL PT 12.0 (9.4-12.1) Seconds INR 1.1 APTT 29.9 (26.0-36.0) Seconds Sodium 141 (136-145) mEq/L Potassium 4.1 (3.5-4.5) mEq/L Chloride 105 (98-109) mEq/L Carbon Dioxide 29 (19-29) mEq/L BUN 31 H (8-26) mg/dL Creatinine 2.15 H (0.72-1.25) mg/dL Est GFR ( Amer) 36 L (> 60) Est GFR (Non-Af Amer) 30 L (> 60) BUN/Creatinine Ratio 14 (6-26) Glucose 92 (70-99) mg/dL Calculated Osmolality 298 (280-300) Lactic Acid (0.5-2.2) mmol/L Calcium 9.3 (8.6-10.8) mg/dL Magnesium 1.9 (1.6-2.6) mg/dL Total Bilirubin 0.4 (0.2-1.2) mg/dL AST 16 (5-34) Units/L ALT 22 (0-55) Units/L Alkaline Phosphatase 76 (38-126) Units/L Troponin I (0-0.03) ng/mL Serum Total Protein 6.8 (6.0-8.3) g/dL Albumin 3.6 (3.5-5.0) g/dL Globulin 3.2 (2.4-3.5) g/dL Albumin/Globulin Ratio 1.1 (1.1-2.2) Lipase 18 (8-78) Units/L Urine Color (Yellow) Urine Clarity (Clear) Urine pH (5.0-8.0) pH Units Ur Specific [place] (1.010-1.025) Urine Protein (Neg-Trace) mg/dL Urine Glucose (UA) (Normal) mg/dL Urine Ketones (Negative) mg/dL Urine Blood (Negative) Urine Nitrite (Negative) Urine Bilirubin (Negative) Urine Urobilinogen (Normal) mg/dL Ur Leukocyte Esterase (Negative) Stool Occult Blood (Negative) Blood Type Antibody Screen 02/27/17 02/27/17 02/27/17 Range/Units 07:21 07:21 07:21 WBC (4.3-11.1) K/mcL RBC (4.19-5.50) M/mcL Hgb (12.9-16.9) g/dL Hct (37.5-50.1) % MCV (83.0-100.0) fL MCH (28.0-33.3) pg MCHC (31.6-35.5) g/dL RDW (11.5-14.5) % Plt Count (140-400) K/mcL MPV (9.4-12.4) fL Immature Gran % (0-4) % Seg Neutrophils % % Lymphocytes % % Monocytes % % Eosinophils % % Basophils % % Neutrophils # (1.6-8.9) K/mcL Lymphocytes # (0.6-4.6) K/mcL Monocytes # (0.0-1.3) K/mcL Eosinophils # (0.0-0.6) K/mcL Basophils # (0.0-0.2) K/mcL PT (9.4-12.1) Seconds INR APTT (26.0-36.0) Seconds Sodium (136-145) mEq/L Potassium (3.5-4.5) mEq/L Chloride (98-109) mEq/L Carbon Dioxide (19-29) mEq/L BUN (8-26) mg/dL Creatinine (0.72-1.25) mg/dL Est GFR ( Amer) (> 60) Est GFR (Non-Af Amer) (> 60) BUN/Creatinine Ratio (6-26) Glucose (70-99) mg/dL Calculated Osmolality (280-300) Lactic Acid 1.0 (0.5-2.2) mmol/L Calcium (8.6-10.8) mg/dL Magnesium (1.6-2.6) mg/dL Total Bilirubin (0.2-1.2) mg/dL AST (5-34) Units/L ALT (0-55) Units/L Alkaline Phosphatase (38-126) Units/L Troponin I 0.01 (0-0.03) ng/mL Serum Total Protein (6.0-8.3) g/dL Albumin (3.5-5.0) g/dL Globulin (2.4-3.5) g/dL Albumin/Globulin Ratio (1.1-2.2) Lipase (8-78) Units/L Urine Color (Yellow) Urine Clarity (Clear) Urine pH (5.0-8.0) pH Units Ur Specific [place] (1.010-1.025) Urine Protein (Neg-Trace) mg/dL Urine Glucose (UA) (Normal) mg/dL Urine Ketones (Negative) mg/dL Urine Blood (Negative) Urine Nitrite (Negative) Urine Bilirubin (Negative) Urine Urobilinogen (Normal) mg/dL Ur Leukocyte Esterase (Negative) Stool Occult Blood (Negative) Blood Type O POSITIVE Antibody Screen NEGATIVE 02/27/17 02/27/17 Range/Units 08:15 08:47 WBC (4.3-11.1) K/mcL RBC (4.19-5.50) M/mcL Hgb (12.9-16.9) g/dL Hct (37.5-50.1) % MCV (83.0-100.0) fL MCH (28.0-33.3) pg MCHC (31.6-35.5) g/dL RDW (11.5-14.5) % Plt Count (140-400) K/mcL MPV (9.4-12.4) fL Immature Gran % (0-4) % Seg Neutrophils % % Lymphocytes % % Monocytes % % Eosinophils % % Basophils % % Neutrophils # (1.6-8.9) K/mcL Lymphocytes # (0.6-4.6) K/mcL Monocytes # (0.0-1.3) K/mcL Eosinophils # (0.0-0.6) K/mcL Basophils # (0.0-0.2) K/mcL PT (9.4-12.1) Seconds INR APTT (26.0-36.0) Seconds Sodium (136-145) mEq/L Potassium (3.5-4.5) mEq/L Chloride (98-109) mEq/L Carbon Dioxide (19-29) mEq/L BUN (8-26) mg/dL Creatinine (0.72-1.25) mg/dL Est GFR ( Amer) (> 60) Est GFR (Non-Af Amer) (> 60) BUN/Creatinine Ratio (6-26) Glucose (70-99) mg/dL Calculated Osmolality (280-300) Lactic Acid (0.5-2.2) mmol/L Calcium (8.6-10.8) mg/dL Magnesium (1.6-2.6) mg/dL Total Bilirubin (0.2-1.2) mg/dL AST (5-34) Units/L ALT (0-55) Units/L Alkaline Phosphatase (38-126) Units/L Troponin I (0-0.03) ng/mL Serum Total Protein (6.0-8.3) g/dL Albumin (3.5-5.0) g/dL Globulin (2.4-3.5) g/dL Albumin/Globulin Ratio (1.1-2.2) Lipase (8-78) Units/L Urine Color Yellow (Yellow) Urine Clarity Clear (Clear) Urine pH 6.5 (5.0-8.0) pH Units Ur Specific [place] 1.012 (1.010-1.025) Urine Protein Negative (Neg-Trace) mg/dL Urine Glucose (UA) Normal (Normal) mg/dL Urine Ketones Negative (Negative) mg/dL Urine Blood Negative (Negative) Urine Nitrite Negative (Negative) Urine Bilirubin Negative (Negative) Urine Urobilinogen Normal (Normal) mg/dL Ur Leukocyte Esterase Negative (Negative) Stool Occult Blood Positive A (Negative) Blood Type Antibody Screen - Radiology Data Radiology results reviewed: Yes I reviewed the patient's radiology results. Chest X-Ray 02/27/17 07:08 IMPRESSION: No acute cardiopulmonary disease. D/ / Angela Blair MD / Angela Blair MD Interpreting Provider: Angela Blair MD Abdomen/Pelvis CT 02/27/17 08:20 IMPRESSION: 1. Short-segment circumferential colonic wall thickening of the descending colon suggesting infectious or inflammatory colitis. 2. Colonic diverticulosis without associated acute inflammatory changes. Additionally, there are diverticula within multiple loops of small bowel. 3. Small hiatal hernia. 4. Cholecystectomy. D/ / 02/27/2017 08:58:06 Paco Reynoso MD / misael Interpreting Provider: Paco Reynoso MD Attestation Statement - Attestation Attestation: For this encounter, I have reviewed the INFORMATION SYSTEMS ARCHITECT or PA documentation, treatment plan, and medical decision making; and I have had face to face time with this patient. Patient is 76-year-old pleasant white male who presents to the emergency department with a one-week history of gradually worsening diffuse lower abdominal pain. Patient has a remote history of prior kidney stones and is also had both inguinal and anterior abdominal wall hernia repairs in the past who states that he has been experiencing generalized lower abdominal cramping that has gradually increased in severity and over the past 48 hours pain has been much worse, including some right flank pain. Patient reports visible blood in his stool with occasionally with bowel movements, scant amount. Patient denies any prior history of GI bleeding or diverticulitis. Patient had no fevers or chills at home, no nausea vomiting, and denies any significant bowel changes. No recent surgical intervention. Patient arrives with elevated blood pressure but distal pulses. Patient was having a bowel movement this morning and states during that time he was experiencing significant increase in the level of his abdominal pain and cramping, became diaphoretic and lightheaded and had a syncopal episode at home. Patient denies any injury related to this episode, no head injury, no neck or back pain, no extremity pain or contusions or bruising. I agree patient's physical exam findings as documented. Patient without pulsatile mass in the abdomen palpated and distal pulses are 2+ and equal bilaterally. Patient hemodynamically stable in no acute distress on arrival. Patient was placed on a professional bass fisher continuous pulse ox IV saline well was established labs were drawn and sent urinalysis was obtained an EKG which is interpreted by myself without benefit of for cardiology interpretation showing normal sinus rhythm with occasional sinus arrhythmia with no acute ischemic changes appreciated. This was compared to an old EKG from November 10 of this year with no acute findings. Patient's labs were unremarkable with the exception of an acute renal insufficiency with a bump in his serum creatinine today. Urinalysis at this time is pending. Rectal exam was negative for gross blood awaiting guaiac studies. Patient was sent for an abdominal CT with out IV contrast due to his low GFR. CT was significant for descending colitis. Questionable inflammatory versus infectious. We will cover the patient with IV antibiotics, await urinalysis results and treat if necessary. Patient was given IV fluids and pain medication here and has improved him symptomatically. We will admit the patient for further evaluation and treatment. Case discussed with hospitalist who accepted patient for admission.
[2017-02-27] MEDS ORDERED: Ipratropium/Albuterol Neb 3 ML IH ONE ×2 (07:08→09:46)
[2017-02-27] MEDS ORDERED: Pantoprazole 80 MG in 0.9 % Sodium Chloride 50 ML IVPB ONE (07:18)
[2017-02-27] MEDS ORDERED: 0.9 % Sodium Chloride 1,000 ML IVC ONE (07:18)
[2017-02-27 07:36] LABS: INR 1.1
[2017-02-27 07:38] LABS: Activated Partial Thrombo Time 29.9 Seconds (26.0-36.0)
[2017-02-27 07:46] LABS: Albumin 3.6 g/dL (3.5-5.0); Albumin/Globulin Ratio 1.1 (1.1-2.2); Bilirubin,Total 0.4 mg/dL (0.2-1.2); Calcium 9.3 mg/dL (8.6-10.8); Globulin 3.2 g/dL (2.4-3.5); Magnesium 1.9 mg/dL (1.6-2.6); Potassium 4.1 mEq/L (3.5-4.5); Total Protein 6.8 g/dL (6.0-8.3)
[2017-02-27 07:52] LABS: Basophils % 0.6 %; Eosinophils # 0.3 K/mcL (0.0-0.6); Eosinophils % 4.3 %; Hematocrit 34.5 % (37.5-50.1); Hemoglobin 11.1 g/dL (12.9-16.9); Immature Granulocytes % 0.8 % (0-4); Lymphocytes # 1.1 K/mcL (0.6-4.6); Lymphocytes % 14.9 %; Mean Corpuscular HGB Conc 32.2 g/dL (31.6-35.5); Mean Corpuscular Hemoglobin 26.9 pg (28.0-33.3); Mean Corpuscular Volume 83.7 fL (83.0-100.0); Mean Platelet Volume 9.9 fL (9.4-12.4); Monocytes # 0.7 K/mcL (0.0-1.3); Monocytes % 9.2 %; Neutrophils # 5.1 K/mcL (1.6-8.9); Platelet Count 167 K/mcL (140-400); Red Blood Count 4.12 M/mcL (4.19-5.50); Red Cell Distribution Width 13.1 % (11.5-14.5); Segmented Neutrophils % 70.2 %
[2017-02-27] MEDS ORDERED: *HR* Morphine 2 MG/ML SYRINGE IVP ONE (08:06)
[2017-02-27] MEDS ORDERED: Ondansetron 4 MG/2 ML VIAL IVP ONE (08:06)
[2017-02-27 09:08] LABS: Bilirubin,Urine Negative (Negative); Blood,Urine Negative (Negative); Clarity,Urine Clear (Clear); Color,Urine Yellow (Yellow); Glucose,Urine (UA) Normal (Normal); Ketones,Urine Negative (Negative); Leukocyte Esterase,Urine Negative (Negative); Nitrite,Urine Negative (Negative); PH,Urine 6.5 pH Units (5.0-8.0); Protein,Urine Negative (Neg-Trace); Specific Gravity,Urine 1.012 (1.010-1.025); Urobilinogen,Urine Normal (Normal)
[2017-02-27] MEDS ORDERED: *HR* HYDROmorphone 2 MG/ML SYRINGE IVP ONE (09:14)
[2017-02-27] MEDS ORDERED: MetroNIDAZOLE 500 MG/100 ML 500 MG/100 ML BAG IVPB ONE (09:15)
[2017-02-27] MEDS ORDERED: *HR* HYDROmorphone (PF) 1 MG/ML SYRINGE IVP ONE (09:43)
[2017-02-27] MEDS ORDERED: Naloxone 0.4 MG/ML INJ IVP PRN (12:35)
[2017-02-27] MEDS ORDERED: Ondansetron 4 MG/2 ML VIAL IVP PRN (12:35)
[2017-02-27] MEDS ORDERED: Acetaminophen 325 MG TABLET PO PRN (12:35)
[2017-02-27] MEDS ORDERED: Ondansetron ODT 4 MG TAB.RAPDIS SL PRN (12:35)
[2017-02-27] MEDS: 0.9 % Sodium Chloride 1,000 ML IVC SCH (12:57)
[2017-02-27] MEDS: *HR* HYDROcodone/Acet 5/325 mg TABLET PO PRN (12:57)
[2017-02-27] MEDS: MetroNIDAZOLE 500 MG/100 ML 500 MG/100 ML BAG IVPB SCH (16:39)
--- NOTE | 2017-02-27 16:51 | Electrocardiograph Report ---
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
[2017-02-27] MEDS ORDERED: ALPRAZolam 1 MG TABLET PO PRN (18:37)
[2017-02-27] MEDS ORDERED: Albuterol 2.5 MG/3 ML NEBULIZER IH PRN (18:37)
--- NOTE | 2017-02-27 18:42 | Internal Med History&Physical ---
Date of Encounter: 02/27/17 Time of Encounter: 18:39 Assessment and Plan (1) Bright red blood per rectum Current visit: Yes Status: Acute Due to acute colitis -Ischemic vs Inflammatory Reviewed his CT of abd showing segmental colitis will put him on clear liquid diet IV hydration empirical abx with Cipro and Flagyl GI consulted cont close monitoring of Hb so far stable Hb PPI Held ASA (2) Colitis Current visit: Yes Status: Acute see above (3) HTN (hypertension) Current visit: No Status: Acute stable BP resumed home meds Qualifiers: Hypertension type: essential hypertension Qualified Code(s): I10 - Essential (primary) hypertension (4) CKD (chronic kidney disease) stage 3, GFR 30-59 ml/min Current visit: No Status: Chronic Slightly elevated Cr than baseline cont IV fluids (5) Asthma Current visit: No Status: Chronic not in exacerb resumed home INH regimen Qualifiers: Asthma severity: moderate persistent Asthma complication type: uncomplicated Qualified Code(s): J45.40 - Moderate persistent asthma, uncomplicated (6) DVT prophylaxis Current visit: No Status: Acute on SCD Internal Medicine - H&P: HPI Chief complaint: Bright red blood per rectum Admitted From: Emergency Dept Plans for Post Hospital Care: Home History of present illness: Mr. Thrasher is a 76 year old male with known PMH of HTN, HLD, CKD-3, who had normal cardiac cath who presented to ER c/o abdominal pain with bright red blood per rectum since 2 days. he denied any melena / dark colored stools. he did mention bright red blood only. He has not had any more BM after coming to ER. Now he feels little better. Denied any nausea / vomiting. Denied any CP / SOB Past Med Surg Social Fam HX - Past Medical History Medical history: asthma, COPD, coronary artery disease, hypertension, myocardial infarction, other Psychiatric history: no psych history - Past Surgical History Surgical History: cholecystectomy - Social History Smoking Status: Former smoker Smokeless Tobacco Status: No Alcohol use: none Drug use: none - Family History Brother Adopted: No Living Status: Hx Family Cancer: Yes Internal Medicine - H&P: Meds Aspirin 81 mg PO DAILY 12/15/15 [History] Carvedilol 25 mg PO BID 12/15/15 [History] Citalopram Hydrobromide [Citalopram HBr] 40 mg PO DAILY 12/15/15 [History] Gabapentin [Neurontin] 300 mg PO TID 12/15/15 [History] Lovastatin [Mevacor] 20 mg PO DAILY 12/15/15 [History] Pantoprazole Sodium 40 mg PO DAILY 12/15/15 [History] ALPRAZolam [Alprazolam] 2 mg PO TID PRN 04/04/16 [History] Albuterol Neb [Proventil Neb] 2.5 mg IH TID PRN 04/04/16 [History] Beclomethasone Diprop 40mcg [QVAR 40 mcg] 1 puff IH BID 04/04/16 [History] Diclofenac Sodium [Voltaren] 2 appl TP AD 09/07/16 [History] Fluticasone Propionate Nasal [Flonase] 1 spray NS DAILY 09/07/16 [History] Montelukast [Singulair] 10 mg PO DAILY 09/07/16 [History] amLODIPine [Norvasc] 10 mg PO DAILY 09/07/16 [History] Isosorbide MONOnitrate (24 HR) [Imdur] 60 mg PO DAILY #30 tab.er.24h 09/11/16 [ Rx] Oxycodone HCl [Roxicodone 30 MG Immed Release] 30 mg PO Q8H PRN #0 09/11/16 [Rx ] hydrALAZINE [HydrALAZINE] 50 mg PO TID #180 tablet 09/11/16 [Rx] Albuterol Sulfate [Proventil Hfa] 6.7 gm IH QID #1 hfa.aer.ad 11/10/16 [Rx] Allergies tetanus toxoid, adsorbed Allergy (Verified 04/15/16 13:16) Swelling of Lip/Tongue/Throat All Systems PM: A 10-system review of systems was performed and is negative for pertinent findings except as documented above in the HPI. Review of systems: Reviewed all the systems, everything is benign except the systems and symptoms I mentioned in HPI. - Constitutional Vitals: Temp Pulse Resp BP Pulse Ox 98.0 F 78 16 143/65 93 02/27/17 06:38 02/27/17 09:27 02/27/17 10:12 02/27/17 10:12 02/27/17 10:10 General appearance: Present: A&O X 3, pleasant, no acute distress - Head Head exam: Present: atraumatic, normocephalic - Neck Neck exam general surgery: Present: supple. Absent: lymphadenopathy, thyromegaly - Respiratory Respiratory exam: Present: decreased breath sounds, wheezes. Absent: accessory muscle use, rales, respiratory distress, rhonchi - Cardiovascular Cardiovascular exam: Present: RRR, +S1, +S2. Absent: systolic murmur - GI/Abdominal GI/Abdominal exam: Present: normal bowel sounds, soft. Absent: distended, guarding, rebound, rigid, tenderness - Extremities Exam Extremities exam: Absent: calf tenderness, pedal edema, tenderness - Back Exam Back exam: Absent: CVA tenderness (L), CVA tenderness (R) - Neurological Exam Neurological exam: Present: alert, oriented X3 - Psychiatric Psychiatric exam: Present: normal affect, normal mood - Skin Skin exam: Absent: rash Internal Med - H&P Results - Labs CBC & Chem 7: 02/27/17 07:21 02/27/17 07:21 - EKG Data -: EKG Interpreted by Myself
[2017-02-27] MEDS: Beclomethasone 40mcg MDI IH SCH (19:55)
[2017-02-27] MEDS: Gabapentin 300 MG CAPSULE PO SCH (20:28)
[2017-02-27] MEDS: hydrALAZINE 25 MG TABLET PO SCH (22:24)
[2017-02-28] MEDS: MetroNIDAZOLE 500 MG/100 ML 500 MG/100 ML BAG IVPB SCH ×3 (01:17→16:06)
[2017-02-28 06:49] LABS: Basophils % 0.6 %; Eosinophils # 0.3 K/mcL (0.0-0.6); Eosinophils % 5.6 %; Hematocrit 30.1 % (37.5-50.1); Immature Granulocytes % 0.6 % (0-4); Lymphocytes # 0.9 K/mcL (0.6-4.6); Lymphocytes % 16.2 %; Mean Corpuscular HGB Conc 31.6 g/dL (31.6-35.5); Mean Corpuscular Hemoglobin 26.8 pg (28.0-33.3); Mean Corpuscular Volume 84.8 fL (83.0-100.0); Mean Platelet Volume 10.4 fL (9.4-12.4); Monocytes # 0.5 K/mcL (0.0-1.3); Neutrophils # 3.6 K/mcL (1.6-8.9); Platelet Count 133 K/mcL (140-400); Red Blood Count 3.55 M/mcL (4.19-5.50); Red Cell Distribution Width 13.2 % (11.5-14.5)
[2017-02-28 07:03] LABS: Calcium 8.3 mg/dL (8.6-10.8); Chol/HDL Ratio 3.5 (0-4.9)
[2017-02-28 07:12] LABS: Hemoglobin 9.5 g/dL (12.9-16.9)
[2017-02-28] MEDS: 0.9 % Sodium Chloride 1,000 ML IVC SCH ×2 (07:48→21:33)
[2017-02-28] MEDS: Pantoprazole 40 MG VIAL IVP SCH (07:49)
[2017-02-28] MEDS: *HR* Morphine 2 MG/ML SYRINGE IVP PRN ×3 (07:49→21:36)
--- NOTE | 2017-02-28 08:11 | Internal Med Progress Note ---
<Nancy Edwards - Last Filed: 02/28/17 11:33> Date of Encounter: 02/28/17 Time of Encounter: 08:10 - Assessment and plan (1) Colitis Current Visit: Yes Status: Acute Assessment and plan: Segmental Colitis on CT Patient reports hx of esophageal rupture 6-7 months ago where he required 7 units of blood Reports intermittent CP today, increased SOB, wheezing, abd pain, back pain. Patient also reports starting new weight loss pill one week ago when sx began called "Apollo Coleman" which could have caused the colitis. GI was not contacted last night, we will call today. Hgb 11.1 yesterday, 9.5 this AM, repeat 10.3. Plan: -Monitor Hgb with serial H/H -Transfuse for hgb <7 or if acute blood loss occurs -GI consulted this morning -CT chest secondary to hx esophageal rupture -Continue to monitor VS, monitor for acute blood loss (2) Bright red blood per rectum Current Visit: Yes Status: Acute Assessment and plan: Denies BM since admission Plan as above (3) History of spontaneous rupture of esophagus Current Visit: Yes Status: Resolved Assessment and plan: Pt reports hx of esophageal rupture while in [place] 6-7 months ago requiring 7 units of blood (4) Asthma Current Visit: Yes Status: Chronic Assessment and plan: Patient reports increased wheezing, SOB Diffuse wheezing throughout on exam, poor air movement Plan: -duonebs q6hr -albuterol prn Qualifiers: Asthma severity: moderate persistent Asthma complication type: uncomplicated Qualified Code(s): J45.40 - Moderate persistent asthma, uncomplicated (5) CKD (chronic kidney disease) stage 3, GFR 30-59 ml/min Current Visit: No Status: Chronic (6) HTN (hypertension) Current Visit: No Status: Chronic Qualifiers: Hypertension type: essential hypertension Qualified Code(s): I10 - Essential (primary) hypertension - Subjective Interval history: Patient seen and examined. He states that he has increased SOB today and intermittent substernal, centrally located CP. He is dizzy when he stands. He states that his abdominal pain is worse, and he also has back pain and can't differentiate which pain is abdominal and which is back pain. He is wheezing this morning. He notes that he had an esophageal rupture about 6-7 months ago while he was visiting [place], requiring 7 units of blood products. He has not had any emesis. He has not had any BM since arrival. Denies vision changes, vomiting, heartburn, hematuria. He also admits that he started taking a weight loss pill called "Apollo [employer] Fat" that he ordered online 1 week ago, about the time that his symptoms began. - Constitutional Vitals: Temp Pulse Resp BP Pulse Ox 98.0 F 74 14 121/68 97 02/28/17 07:04 02/28/17 07:04 02/28/17 07:04 02/28/17 07:04 02/28/17 07:04 General appearance: Present: cooperative, A&O X 3, pleasant, no acute distress, obese, answers questions appropriately - Head Head exam: Present: atraumatic, normocephalic - Eye Eye exam: Present: EOMI, PERRL - ENT ENT exam: Present: mucous membranes moist - Neck Neck exam general surgery: Present: supple, trachea midline. Absent: lymphadenopathy - Respiratory Respiratory exam: Present: wheezes. Absent: accessory muscle use, rales, respiratory distress, rhonchi, tachypnea - Expanded Respiratory Exam Location: wheezes: Left, Right, Upper, Lower - Cardiovascular Cardiovascular exam: Present: RRR, +S1, +S2. Absent: diastolic murmur, gallop, rubs, systolic murmur - GI/Abdominal GI/Abdominal exam: Present: distended, hyperactive bowel sounds, soft, tenderness, no peritoneal signs Additional comments: diffuse abdominal tenderness with direct pressure, worse in the LLQ - Extremities Exam Extremities exam: Present: normal capillary refill, warm, radial pulses palpable and symmetrical. Absent: calf tenderness, cyanotic, pedal edema - Back Exam Back exam: Present: CVA tenderness (L), CVA tenderness (R), normal inspection, vertebral tenderness - Neurological Exam Neurological exam: Present: alert, oriented X3, no focal deficits. Absent: speech deficit - Psychiatric Psychiatric exam: Present: normal affect, normal mood - Skin Skin exam: Present: dry, pallor, warm. Absent: diaphoretic, erythema, rash Internal Medicine: Result - Labs CBC & Chem 7: 02/28/17 09:40 02/28/17 05:59 Labs: Short CBC 02/28/17 Range/Units 05:59 WBC 5.3 (4.3-11.1) K/mcL Hgb 9.5 L D (12.9-16.9) g/dL Hct 30.1 L (37.5-50.1) % Plt Count 133 L (140-400) K/mcL Neutrophils # 3.6 (1.6-8.9) K/mcL BMP 02/28/17 05:59 Sodium 141 Potassium 4.0 Chloride 109 Carbon Dioxide 28 BUN 24 Creatinine 1.79 H Glucose 86 Calcium 8.3 L - ABG Interpretation ABG results: PT/INR, D-dimer PT 12.0 Seconds (9.4-12.1) 02/27/17 07:21 - VTE Documentation of Mechanical Device: Intermittent pneumatic compression device Consult Discharge Plan - Plan Referrals: Tommie Srivastava DO [Primary Care Provider] - <Emiliano Diop - Last Filed: 02/28/17 19:43> Date of Encounter: 02/28/17 - Assessment and plan (1) Acute ischemic colitis Current Visit: Yes Status: Acute (2) Lower GI bleed Current Visit: Yes Status: Acute (3) Anemia Current Visit: Yes Status: Acute Qualifiers: Anemia type: other cause Other causes of anemia: acute posthemorrhagic Qualified Code(s): D62 - Acute posthemorrhagic anemia (4) HTN (hypertension) Current Visit: No Status: Chronic Qualifiers: Hypertension type: essential hypertension Qualified Code(s): I10 - Essential (primary) hypertension (5) CKD (chronic kidney disease) stage 3, GFR 30-59 ml/min Current Visit: No Status: Chronic - Constitutional Vitals: Temp Pulse Resp BP Pulse Ox 97.9 F 64 16 119/57 94 02/28/17 16:10 02/28/17 16:10 02/28/17 16:10 02/28/17 16:10 02/28/17 16:10 Internal Medicine: Result - Labs CBC & Chem 7: 02/28/17 15:08 02/28/17 05:59 Labs: Short CBC 02/28/17 02/28/17 02/28/17 Range/Units 05:59 09:40 15:08 WBC 5.3 (4.3-11.1) K/mcL Hgb 9.5 L D 10.3 L 10.0 L (12.9-16.9) g/dL Hct 30.1 L 32.0 L 31.3 L (37.5-50.1) % Plt Count 133 L (140-400) K/mcL Neutrophils # 3.6 (1.6-8.9) K/mcL BMP 02/28/17 05:59 Sodium 141 Potassium 4.0 Chloride 109 Carbon Dioxide 28 BUN 24 Creatinine 1.79 H Glucose 86 Calcium 8.3 L - ABG Interpretation ABG results: PT/INR, D-dimer PT 12.0 Seconds (9.4-12.1) 02/27/17 07:21 - Impressions Impressions Chest CT 02/28/17 09:00 IMPRESSION: No acute process D/ / Earnest Wilkins MD / Earnest Wilkins MD Interpreting Provider: Earnest Wilkins MD - Attending Attestation I examined this patient and my medical decision-making was reviewed with the Resident Physician on 02/28/17. I agree with the documented findings, disposition and treatment plan as described except to the extent set forth below. Mr. Thrasher is currently admitted for acute LGI bleed from presumed ischemic colitis. He is high risk due to potential for worsening status and bleeding. Mr Thrasher feels OK but is hungry. No fever or chills. Pain is controlled. No new symptoms. Exam alert. Comfortable Mucus membranes dry Heart reg No wheeze Abd soft with mild LLQ discomfort No edema I/P 1. Ischemic colitis 2. LGI bleed 3. HTN Further diagnoses and plan as above.
[2017-02-28] MEDS: Beclomethasone 40mcg MDI IH SCH ×2 (08:40→21:16)
[2017-02-28 09:47] LABS: Hemoglobin 10.3 g/dL (12.9-16.9)
[2017-02-28] MEDS: hydrALAZINE 25 MG TABLET PO SCH ×3 (10:01→21:34)
[2017-02-28] MEDS: Gabapentin 300 MG CAPSULE PO SCH ×3 (10:02→21:35)
[2017-02-28] MEDS: Isosorbide MONOnitrate (24 HR) 60 MG TAB.ER.24H PO SCH (10:02)
[2017-02-28] MEDS: amLODIPine 5 MG TABLET PO SCH (10:02)
[2017-02-28] MEDS: *HR* HYDROcodone/Acet 5/325 mg TABLET PO PRN (10:07)
[2017-02-28] MEDS: Ipratropium/Albuterol Neb 3 ML IH SCH ×3 (11:09→21:16)
[2017-02-28] MEDS: Fluticasone Propionate Nasal 50 MCG/SPRAY BOTTLE NS SCH (11:11)
--- NOTE | 2017-02-28 14:23 | Gastroenterology Consult Note ---
<Cj Ragland - Last Filed: 02/28/17 14:20> Date of Encounter: 02/28/17 Time of Encounter: 11:20 - Assessment and plan (1) Bright red blood per rectum Current Visit: Yes Status: Acute Assessment and plan: Likely secondary to ischemic colitis. Patient states he took a double dose of his blood pressure medication due to missing his morning dose, which is likely to have caused him to "pass out". (2) Colitis Current Visit: Yes Status: Acute Assessment and plan: Likely ischemic colitis due to taking double dose of blood pressure medication. Will likely wait 4-6 weeks to complete colonoscopy, will discuss with Dr. Christianson. (3) Anemia Current Visit: Yes Status: Acute Assessment and plan: Hemoglobin on admission 11.1 which decreased to 9.5, today Hgb 10.3. Continue to monitor CBC and transfuse PRBC as indicated. Qualifiers: Anemia type: unspecified type Qualified Code(s): D64.9 - Anemia, unspecified - Time Spent With Patient Total time spent is greater than 50% in coordination of care (as documented) at patient's floor/unit and/or counseling patient: GI History of Present Illness - Data of Consult Patient: known to practice within the last 3 years Consult date: 02/28/17 Requesting Physician: Emiliano Diop DO - Consult Narrative Reason for consult: GI bleed History of present illness: Mr. Thrasher is a 76 year old male with PMHx of asthma, COPD, CAD, HTN, NC who presented to ER c/o abdominal pain with bright red blood per rectum since 2 days. Pt states that he took two doses of one of his blood pressure medications at the same time since he missed the missed the morning dose. He stated he was "trying to make up the dose". He reports "passing out" and is unsure how long he passed out for. He reports having lower abdominal pain/cramping. He states the BRBPR did not start until after he took the extra dose of medication. He denies fever, chills, chest pain, nausea, vomiting, or melena. CT A/P shows short segment circumferential colonic wall thickening of the descending colon and diverticulosis. He was started on Cipro and Flagyl. Procedures: Colonoscopy 09/09/2016 Dr. Christianson: Normal-appearing colon, stool in the entire examined colon. EGD 09/09/2016 Dr. Christianson: Normal NSAIDs: ASA Anticoagulation: None Past Med Surg Social Fam HX - Past Medical History Medical history: asthma, COPD, coronary artery disease, hypertension, myocardial infarction, other Psychiatric history: no psych history - Past Surgical History Surgical History: cholecystectomy - Social History Smoking Status: Former smoker Smokeless Tobacco Status: No Alcohol use: none Drug use: none - Family History Brother Adopted: No Living Status: Hx Family Cancer: Yes - Gastrointestinal Gastrointestinal: Present: as per HPI - Constitutional Constitutional: as per HPI - EENT Eyes: as per HPI Ears: Present: as per HPI Nose, mouth and throat: Present: as per HPI - Cardiovascular Cardiovascular ROS: Present: as per HPI - Respiratory Respiratory IM: Present: as per HPI - Genitourinary Genitourinary: Absent: change in color, Urinary frequency - Neurological ROS Neurological GI: Present: as per HPI - Hematologic/Lymphatic Hematologic/Lymphatic pediatric: Present: as per HPI - Musculoskeletal Musculoskeletal ROS GI: Present: as per HPI - Integumentary Integumentary GI: Present: as per HPI - Psychiatric ROS Psychiatric GI: Present: as per HPI - Endocrine Endocrine IM: Present: as per HPI - Constitutional Vitals: Temp Pulse Resp BP Pulse Ox 98.0 F 66 16 101/60 99 02/28/17 11:11 02/28/17 11:11 02/28/17 11:11 02/28/17 11:11 02/28/17 11:11 General appearance: Present: cooperative, A&O X 3, no acute distress, answers questions appropriately - Head Head exam: Present: atraumatic, normocephalic - Eye Eye exam: Present: normal appearance, sclera anicteric - ENT ENT exam: Present: mucous membranes moist - Neck Neck exam general surgery: Present: normal inspection, trachea midline - Respiratory Respiratory exam: Present: decreased breath sounds, CTAB - Cardiovascular Cardiovascular exam: Present: RRR, +S1, +S2 - GI/Abdominal GI/Abdominal exam: Present: soft, tenderness (lower abdomen), no peritoneal signs. Absent: distended, firm, guarding Additional comments: obese - Rectal Rectal exam: Present: deferred - Extremities Exam Extremities exam: Present: warm - Neurological Exam Neurological exam: Present: no focal deficits - Psychiatric Psychiatric exam: Present: normal affect, normal mood - Skin Skin exam: Present: dry, intact, normal color, warm Results - Labs CBC & Chem 7: 02/28/17 09:40 02/28/17 05:59 Labs: Last Result Calcium 8.3 mg/dL (8.6-10.8) L 02/28/17 05:59 Troponin I 0.01 ng/mL (0-0.03) 02/27/17 07:21 Triglycerides 86 mg/dL (< 150) 02/28/17 05:59 Stool Occult Blood Positive (Negative) A 02/27/17 08:47 Entire Visit Hgb 10.3 g/dL (12.9-16.9) L 02/28/17 09:40 Hct 32.0 % (37.5-50.1) L 02/28/17 09:40 PT 12.0 Seconds (9.4-12.1) 02/27/17 07:21 Total Bilirubin 0.4 mg/dL (0.2-1.2) 02/27/17 07:21 AST 16 Units/L (5-34) 02/27/17 07:21 ALT 22 Units/L (0-55) 02/27/17 07:21 Lipase 18 Units/L (8-78) 02/27/17 07:21 - ABG ABG results: PT/INR, D-dimer PT 12.0 Seconds (9.4-12.1) 02/27/17 07:21 - Impressions Impressions Chest CT 02/28/17 09:00 IMPRESSION: No acute process D/ / Earnest Wilkins MD / Earnest Wilkins MD Interpreting Provider: Earnest Wilkins MD Consult Discharge Plan - Plan Referrals: Tommie Srivastava DO [Primary Care Provider] - <Riley Christianson - Last Filed: 02/28/17 17:30> Date of Encounter: 02/28/17 Time of Encounter: 14:00 - Time Spent With Patient Total time spent is greater than 50% in coordination of care (as documented) at patient's floor/unit and/or counseling patient: GI History of Present Illness - Data of Consult Requesting Physician: Emiliano Diop, DO - Consult Narrative History of present illness: Mr. Thrasher is a 76 year old male - Constitutional Vitals: Temp Pulse Resp BP Pulse Ox 97.9 F 64 16 119/57 94 02/28/17 16:10 02/28/17 16:10 02/28/17 16:10 02/28/17 16:10 02/28/17 16:10 Results - Labs CBC & Chem 7: 02/28/17 15:08 02/28/17 05:59 Labs: Last Result Calcium 8.3 mg/dL (8.6-10.8) L 02/28/17 05:59 Troponin I 0.01 ng/mL (0-0.03) 02/27/17 07:21 Triglycerides 86 mg/dL (< 150) 02/28/17 05:59 Stool Occult Blood Positive (Negative) A 02/27/17 08:47 Entire Visit Hgb 10.0 g/dL (12.9-16.9) L 02/28/17 15:08 Hct 31.3 % (37.5-50.1) L 02/28/17 15:08 PT 12.0 Seconds (9.4-12.1) 02/27/17 07:21 Total Bilirubin 0.4 mg/dL (0.2-1.2) 02/27/17 07:21 AST 16 Units/L (5-34) 02/27/17 07:21 ALT 22 Units/L (0-55) 02/27/17 07:21 Lipase 18 Units/L (8-78) 02/27/17 07:21 - ABG ABG results: PT/INR, D-dimer PT 12.0 Seconds (9.4-12.1) 02/27/17 07:21 - Impressions Impressions Chest CT 02/28/17 09:00 IMPRESSION: No acute process D/ / Earnest Wilkins MD / Earnest Wilkins MD Interpreting Provider: Earnest Wilkins MD - Attending Attestation I examined this patient and my medical decision-making was reviewed with the Resident Physician. I agree with the documented findings, disposition and treatment plan as described except to the extent set forth below. Pt with ischemic colitis causing lower GI bleed, involving the watershed area of the splenic flexure after he dropped his blood pressure. Had colonoscopy done last year. At this point his hemoglobin is stable and clinically he is doing better no need to repeat scope
[2017-02-28 15:37] LABS: Hematocrit 31.3 % (37.5-50.1)
[2017-02-28 21:22] LABS: Hematocrit 29.4 % (37.5-50.1); Hemoglobin 9.5 g/dL (12.9-16.9)
[2017-03-01] MEDS: MetroNIDAZOLE 500 MG/100 ML 500 MG/100 ML BAG IVPB SCH ×4 (00:05→23:19)
[2017-03-01 04:07] LABS: Basophils % 0.4 %; Eosinophils # 0.2 K/mcL (0.0-0.6); Eosinophils % 5.3 %; Hematocrit 27.9 % (37.5-50.1); Hemoglobin 8.8 g/dL (12.9-16.9); Immature Granulocytes % 0.4 % (0-4); Lymphocytes # 0.9 K/mcL (0.6-4.6); Mean Corpuscular HGB Conc 31.5 g/dL (31.6-35.5); Mean Corpuscular Hemoglobin 26.7 pg (28.0-33.3); Mean Corpuscular Volume 84.8 fL (83.0-100.0); Mean Platelet Volume 9.7 fL (9.4-12.4); Monocytes # 0.5 K/mcL (0.0-1.3); Monocytes % 11.4 %; Neutrophils # 2.8 K/mcL (1.6-8.9); Platelet Count 126 K/mcL (140-400); Red Blood Count 3.29 M/mcL (4.19-5.50); Red Cell Distribution Width 13.2 % (11.5-14.5); Segmented Neutrophils % 62.5 %
[2017-03-01 04:24] LABS: Calcium 8.2 mg/dL (8.6-10.8)
[2017-03-01] MEDS: Ipratropium/Albuterol Neb 3 ML IH SCH ×4 (04:30→21:55)
[2017-03-01] MEDS: amLODIPine 5 MG TABLET PO SCH (09:13)
[2017-03-01] MEDS: hydrALAZINE 25 MG TABLET PO SCH ×3 (09:13→20:28)
[2017-03-01] MEDS: 0.9 % Sodium Chloride 1,000 ML IVC SCH (09:18)
[2017-03-01] MEDS: Pantoprazole 40 MG VIAL IVP SCH (09:19)
[2017-03-01] MEDS: Isosorbide MONOnitrate (24 HR) 60 MG TAB.ER.24H PO SCH (09:23)
[2017-03-01] MEDS: Gabapentin 300 MG CAPSULE PO SCH ×3 (09:23→20:28)
[2017-03-01] MEDS: Fluticasone Propionate Nasal 50 MCG/SPRAY BOTTLE NS SCH (09:30)
[2017-03-01 10:44] LABS: Hematocrit 28.3 % (37.5-50.1); Hemoglobin 9.2 g/dL (12.9-16.9)
[2017-03-01] MEDS: Beclomethasone 40mcg MDI IH SCH ×2 (10:53→21:55)
[2017-03-01] MEDS: *HR* OxyCODONE Immed Rel 15 MG TABLET PO PRN (16:34)
--- NOTE | 2017-03-01 17:57 | Internal Med Progress Note ---
<Nancy Edwards - Last Filed: 03/01/17 19:12> Date of Encounter: 03/01/17 Time of Encounter: 17:54 - Assessment and plan (1) Colitis Current Visit: Yes Status: Acute Assessment and plan: Segmental Colitis on CT Patient reports hx of esophageal rupture 6-7 months ago where he required 7 units of blood Patient also reports starting new weight loss pill one week ago when sx began called "Apollo Coleman" which could have caused the colitis. Reported to GI yesterday that he took double his dose of bp meds prior to symptom onset. GI evaluated the patient, suspect ischemic colitis. Hgb stable today at patient's baseline Patient tolerating liquid diet. Discussed that he should never double his bp meds again if he misses a dose. Plan: -AM labs -Advance diet to softs -Switch to PO abx tomorrow, patient will discharge with a total of 10 days of abx -Pt will f/u with GI as an outpt for colonoscopy in 5-6 weeks -Anticipate discharge tomorrow if patient continues to tolerate advanced diet (2) Bright red blood per rectum Current Visit: Yes Status: Acute Assessment and plan: Denies BM since admission Plan as above (3) History of spontaneous rupture of esophagus Current Visit: Yes Status: Resolved Assessment and plan: Pt reports hx of esophageal rupture while in [place] 6-7 months ago requiring 7 units of blood (4) Asthma Current Visit: Yes Status: Chronic Assessment and plan: Wheezing improved with nebs Plan: -duonebs q6hr -albuterol prn Qualifiers: Asthma severity: moderate persistent Asthma complication type: uncomplicated Qualified Code(s): J45.40 - Moderate persistent asthma, uncomplicated (5) CKD (chronic kidney disease) stage 3, GFR 30-59 ml/min Current Visit: No Status: Chronic Assessment and plan: SCr at baseline, pt reports some swelling in b/l LE. Plan: -stop IVF (6) HTN (hypertension) Current Visit: No Status: Chronic Qualifiers: Hypertension type: essential hypertension Qualified Code(s): I10 - Essential (primary) hypertension - Subjective Interval history: Patient seen and examined. He state that he is feeling much better today. His abdominal pain is improved, denies cp, sob, n/v, or further bloody bowel movements. He does admit that he took 2 of his bp pills prior to his symptoms starting, stating he thought that since he had missed his morning dose it was ok to take both doses in the evening. - Constitutional Vitals: Temp Pulse Resp BP Pulse Ox 98.7 F 65 18 150/74 95 03/01/17 16:32 03/01/17 16:32 03/01/17 16:38 03/01/17 16:32 03/01/17 16:38 General appearance: Present: cooperative, A&O X 3, pleasant, no acute distress, obese, answers questions appropriately - Head Head exam: Present: atraumatic, normocephalic - Respiratory Respiratory exam: Present: CTAB. Absent: accessory muscle use, rales, rhonchi, wheezes - Cardiovascular Cardiovascular exam: Present: RRR, +S1, +S2. Absent: diastolic murmur, gallop, rubs, systolic murmur - GI/Abdominal GI/Abdominal exam: Present: normal bowel sounds, soft, tenderness (LUQ, LLQ), no peritoneal signs. Absent: guarding - Extremities Exam Extremities exam: Present: normal capillary refill, normal inspection, warm, radial pulses palpable and symmetrical. Absent: calf tenderness, cyanotic, pedal edema - Neurological Exam Neurological exam: Present: alert, oriented X3, no focal deficits. Absent: pronater drift, facial droop, speech deficit - Psychiatric Psychiatric exam: Present: normal affect, normal mood - Skin Skin exam: Present: dry, intact, warm Internal Medicine: Result - Labs CBC & Chem 7: 03/01/17 10:13 03/01/17 03:28 - ABG Interpretation ABG results: PT/INR, D-dimer PT 12.0 Seconds (9.4-12.1) 02/27/17 07:21 - VTE Reasons for not Prescribing Prophylaxis: Medical contraindication Documentation of Mechanical Device: Intermittent pneumatic compression device Consult Discharge Plan - Plan Referrals: Tommie Srivastava DO [Primary Care Provider] - <Emiliano Diop - Last Filed: 03/01/17 19:22> Date of Encounter: 03/01/17 - Assessment and plan (1) Acute ischemic colitis Current Visit: Yes Status: Acute (2) Lower GI bleed Current Visit: Yes Status: Acute (3) Anemia Current Visit: Yes Status: Acute Qualifiers: Anemia type: other cause Other causes of anemia: acute posthemorrhagic Qualified Code(s): D62 - Acute posthemorrhagic anemia (4) HTN (hypertension) Current Visit: No Status: Chronic Qualifiers: Hypertension type: essential hypertension Qualified Code(s): I10 - Essential (primary) hypertension (5) CKD (chronic kidney disease) stage 3, GFR 30-59 ml/min Current Visit: No Status: Chronic - Constitutional Vitals: Temp Pulse Resp BP Pulse Ox 98.7 F 86 16 155/73 94 03/01/17 16:32 03/01/17 18:17 03/01/17 18:17 03/01/17 18:17 03/01/17 18:17 Internal Medicine: Result - Labs CBC & Chem 7: 03/01/17 10:13 03/01/17 03:28 - ABG Interpretation ABG results: PT/INR, D-dimer PT 12.0 Seconds (9.4-12.1) 02/27/17 07:21 - Attending Attestation I examined this patient and my medical decision-making was reviewed with the Resident Physician on 03/01/17. I agree with the documented findings, disposition and treatment plan as described except to the extent set forth below. Mr. Thrasher is currently admitted for acute LGI bleed and ischemic colitis. He remains moderate to high risk due to potential for worsening clinical status. Mr Steven feels OK today. No further bleeding noted. Still with some L side discomfort. No fever or chills. Exam Alert. Comfortable Mucus membranes moist Heart reg No wheeze Abd soft. Mild discomfort L side without peritoneal signs No edema I/P 1. Ischemic colitis 2. Anemia Further diagnoses and plan as above.
--- NOTE | 2017-03-01 20:40 | Electrocardiograph Report ---
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
[2017-03-01] MEDS: *HR* HYDROcodone/Acet 5/325 mg TABLET PO PRN (23:19)
[2017-03-02] MEDS: Ipratropium/Albuterol Neb 3 ML IH SCH ×2 (05:01→10:33)
[2017-03-02 06:48] LABS: Calcium 8.6 mg/dL (8.6-10.8); Potassium 4.2 mEq/L (3.5-4.5)
[2017-03-02 06:59] LABS: Basophils % 0.4 %; Eosinophils # 0.3 K/mcL (0.0-0.6); Eosinophils % 6.7 %; Hemoglobin 8.8 g/dL (12.9-16.9); Immature Granulocytes % 0.6 % (0-4); Lymphocytes # 0.9 K/mcL (0.6-4.6); Lymphocytes % 20.1 %; Mean Corpuscular HGB Conc 31.4 g/dL (31.6-35.5); Mean Corpuscular Hemoglobin 26.7 pg (28.0-33.3); Mean Corpuscular Volume 85.1 fL (83.0-100.0); Mean Platelet Volume 9.9 fL (9.4-12.4); Monocytes # 0.6 K/mcL (0.0-1.3); Monocytes % 13.2 %; Neutrophils # 2.7 K/mcL (1.6-8.9); Platelet Count 136 K/mcL (140-400); Red Blood Count 3.29 M/mcL (4.19-5.50); Red Cell Distribution Width 13.3 % (11.5-14.5)
--- NOTE | 2017-03-02 08:06 | Discharge Summary ---
<Nancy Edwards - Last Filed: 03/02/17 09:51> Date of Encounter: 03/02/17 Time of Encounter: 08:04 - Discharge Diagnosis (1) Acute ischemic colitis Priority: Primary Status: Acute (2) Lower GI bleed Priority: Primary Status: Acute (3) Bright red blood per rectum Priority: Primary Status: Resolved (4) History of spontaneous rupture of esophagus Priority: Secondary Status: Resolved (5) Asthma Priority: Primary Status: Chronic Qualifiers: Asthma severity: moderate persistent Asthma complication type: uncomplicated Qualified Code(s): J45.40 - Moderate persistent asthma, uncomplicated (6) CKD (chronic kidney disease) stage 3, GFR 30-59 ml/min Priority: Primary Status: Chronic (7) HTN (hypertension) Priority: Primary Status: Chronic Qualifiers: Hypertension type: essential hypertension Qualified Code(s): I10 - Essential (primary) hypertension - Discharge Medications Prescriptions: Ciprofloxacin [Cipro] 500 mg PO BID #13 tab metroNIDAZOLE [Flagyl] 500 mg PO TID #20 tab Home Medications: Aspirin 81 mg PO DAILY 12/15/15 [History] Carvedilol 25 mg PO BID 12/15/15 [History] Citalopram Hydrobromide [Citalopram HBr] 40 mg PO DAILY 12/15/15 [History] Gabapentin [Neurontin] 300 mg PO TID 12/15/15 [History] Lovastatin [Mevacor] 20 mg PO DAILY 12/15/15 [History] Pantoprazole Sodium 40 mg PO DAILY 12/15/15 [History] ALPRAZolam [Alprazolam] 2 mg PO TID PRN 04/04/16 [History] Albuterol Neb [Proventil Neb] 2.5 mg IH TID PRN 04/04/16 [History] Beclomethasone Diprop 40mcg [QVAR 40 mcg] 1 puff IH BID 04/04/16 [History] Diclofenac Sodium [Voltaren] 2 appl TP AD 09/07/16 [History] Fluticasone Propionate Nasal [Flonase] 1 spray NS DAILY 09/07/16 [History] Montelukast [Singulair] 10 mg PO DAILY 09/07/16 [History] amLODIPine [Norvasc] 10 mg PO DAILY 09/07/16 [History] Isosorbide MONOnitrate (24 HR) [Imdur] 60 mg PO DAILY #30 tab.er.24h 09/11/16 [ Rx] Oxycodone HCl [Roxicodone 30 MG Immed Release] 30 mg PO Q8H PRN #0 09/11/16 [Rx ] hydrALAZINE [HydrALAZINE] 50 mg PO TID #180 tablet 09/11/16 [Rx] Albuterol Sulfate [Proventil Hfa] 6.7 gm IH QID #1 hfa.aer.ad 11/10/16 [Rx] Ciprofloxacin [Cipro] 500 mg PO BID #13 tab 03/02/17 [Rx] metroNIDAZOLE [Flagyl] 500 mg PO TID #20 tab 03/02/17 [Rx] Allergies/Adverse Reactions: Allergies tetanus toxoid, adsorbed Allergy (Verified 04/15/16 13:16) Swelling of Lip/Tongue/Throat Date of admission: 03/01/17 15:46 Primary care physician: Tommie Srivastava, Discharging clinician: Emiliano Diop Anticipated date of discharge: 03/02/17 - Patient Status Disposition: Home, Self-Care Condition: Fair Functional capacity at discharge: independent ambulation Overall status at discharge: patient is back to baseline - Discharge Instructions Follow Up With: Tommie Srivastava DO [Primary Care Provider] - 03/21/17 9:00 am Riley Christianson MD [Partnered Physician] - (WEB ERQUEST SUBMITTED) Additional Instructions: Do not double your dose of blood pressure medications if you ever miss a dose. Make sure to take all of your antibiotics as prescribed. Make sure to follow up with your PCP within [address] Christianson. Return to the ER if you have another episode of passing out, bright red blood in your stool or worsening abdominal pain. - Diet and Activity Activity: increase activity as tolerated Diet: advance to your usual diet Interval History: Patient seen and examined this morning. States his abdominal pain is much improved, no further episodes of blood in stool, no episodes of dizziness or syncope. Hospital course: Mr. Thrasher is a 76 year old male who presented to [facility] ED complaining of abdominal pain with bright red blood per rectum for [address] abd/pelvis revealed segmental colitis. The patient was admitted with IV hydration, IV cipro and flagyl. His Hgb was monitored closely throughout his stay and has been stable at his baseline. He had no further episodes of bloody stool while in the hospital or ER. He admitted to starting a new weight loss drug called "[employer]" that he purchased online one week before his symptoms started. He also admitted to missing an AM dose of his blood pressure medication and doubling his evening dose the night his symptoms began. He states that he passed out and then began having the blood in his stool and abdominal pain. GI evaluated the patient and determined that his symptoms were likely ischemic colitis secondary to his self administration of double dose of blood pressure medications. The patient's blood pressure have been monitored throughout his stay and are stable. The patient has tolerated an advancing diet well. He was counseled on not ever taking double his dose of blood pressure medications if a dose is missed again. He will be discharged on oral cipro and flagyl, to complete a total 10 day course of both. The patient will have follow up with his PCP within [address] Christianson for outpatient scopes to be scheduled in several weeks. All questions were answered and the patient states understanding of the plan. He will be discharged home in stable condition today with follow up. - Time Spent with Patient Total time spent providing and/or coordinating discharge services: - Constitutional Vitals: Temp Pulse Resp BP Pulse Ox 97.6 F 62 18 137/63 96 03/02/17 07:04 03/02/17 07:04 03/02/17 07:04 03/02/17 07:04 03/02/17 07:04 General appearance: Present: cooperative, A&O X 3, pleasant, no acute distress, obese, answers questions appropriately - Head Head exam: Present: atraumatic, normocephalic - Neck Neck exam general surgery: Present: supple, trachea midline - Respiratory Respiratory exam: Present: wheezes. Absent: accessory muscle use, decreased breath sounds, rales, respiratory distress, rhonchi, tachypnea - Cardiovascular Cardiovascular exam: Present: RRR, +S1, +S2. Absent: diastolic murmur, gallop, rubs, systolic murmur - GI/Abdominal GI/Abdominal exam: Present: normal bowel sounds, soft, no peritoneal signs. Absent: distended, tenderness - Extremities Exam Extremities exam: Present: warm, radial pulses palpable and symmetrical. Absent : calf tenderness, cyanotic, pedal edema - Neurological Exam Neurological exam: Present: oriented X3, no focal deficits. Absent: facial droop, speech deficit - Psychiatric Psychiatric exam: Present: normal affect, normal mood - Skin Skin exam: Present: dry, intact, normal color, warm - VTE Reasons for not Prescribing Prophylaxis: Medical contraindication Documentation of Mechanical Device: Venous foot pump, device <Emiliano Diop - Last Filed: 03/02/17 16:57> Date of Encounter: 03/02/17 - Discharge Diagnosis (1) Acute ischemic colitis Status: Acute (2) Lower GI bleed Status: Acute (3) Anemia Priority: Secondary Status: Acute Qualifiers: Anemia type: other cause Other causes of anemia: acute posthemorrhagic Qualified Code(s): D62 - Acute posthemorrhagic anemia (4) HTN (hypertension) Status: Chronic Qualifiers: Hypertension type: essential hypertension Qualified Code(s): I10 - Essential (primary) hypertension (5) CKD (chronic kidney disease) stage 3, GFR 30-59 ml/min Status: Chronic Date of admission: 03/01/17 15:46 Primary care physician: Tommie Srivastava, Hospital course: Mr. Thrasher is a 76 year old male - Time Spent with Patient Total time spent providing and/or coordinating discharge services: 39min - Constitutional Vitals: Temp Pulse Resp BP Pulse Ox 97.8 F 64 16 149/68 98 03/02/17 10:53 03/02/17 10:53 03/02/17 10:53 03/02/17 10:53 03/02/17 10:53 - Attending Attestation I examined this patient and my medical decision-making was reviewed with the Resident Physician on 03/02/17. I agree with the documented findings, disposition and treatment plan as described except to the extent set forth below. Mr. Thrasher was admitted for acute colitis and rectal bleeding. He was felt to have ischemic colitis from hypotension when he took double BP meds. His H/H remained stable and he had no acute issues. He is afebrile with stable vitals. Exam Alert. Comfortable Mucus membranes dry Heart reg No wheeze Abd slightly distended but soft. Bowel sounds heard No edema Abd series - nonacute Plan D/C home today Complete abx Follow up with PCP and with Dr. Christianson. Return for new or worsening symptoms.
[2017-03-02] MEDS: Pantoprazole 40 MG VIAL IVP SCH (08:37)
[2017-03-02] MEDS: Isosorbide MONOnitrate (24 HR) 60 MG TAB.ER.24H PO SCH (08:38)
[2017-03-02] MEDS: Gabapentin 300 MG CAPSULE PO SCH (08:39)
[2017-03-02] MEDS: *HR* OxyCODONE Immed Rel 15 MG TABLET PO PRN (08:41)
[2017-03-02] MEDS: Fluticasone Propionate Nasal 50 MCG/SPRAY BOTTLE NS SCH (08:41)
[2017-03-02] MEDS ORDERED: metroNIDAZOLE 500 MG TABLET PO SCH (09:00)
[2017-03-02] MEDS: Beclomethasone 40mcg MDI IH SCH (10:33)
[2017-03-02 10:54] VITALS: BP 149/68
[2017-03-02] MEDS: amLODIPine 5 MG TABLET PO SCH (11:07)
[2017-03-02] MEDS: hydrALAZINE 25 MG TABLET PO SCH (11:08)
== END 2017-03-02 11:57 | disposition home or self-care (01) | DRG 395 ==
LOC: 3NENU 06:37 → EMEROO 06:37 → SUATTDRO 09:50 → 3NENU 10:29
PROVIDERS: ADMIT Internal Medicine Endocrinology, Diabetes & Metabolism; ATTEND Internal Medicine

== ENCOUNTER 2017-07-27 21:16 | Observation (INO) ==
[2017-07-27] MEDS ORDERED: methylPREDNISolone 125 MG/2 ML VIAL IVP ONE (21:31)
[2017-07-27] MEDS ORDERED: Ipratropium/Albuterol Neb 3 ML IH ONE (21:31)
[2017-07-27] MEDS ORDERED: Ipratropium/Albuterol Neb 3 ML ONE (21:33)
--- NOTE | 2017-07-27 21:34 | Emergency Department Note ---
Disposition Clinical Impression: COPD exacerbation Chronic kidney disease Qualifiers: Chronic kidney disease stage: unspecified stage Qualified Code(s): N18.9 - Chronic kidney disease, unspecified Disposition: Admitted As Inpatient Condition: Fair Time of Disposition: 23:13 SOB HPI - General Chief Complaint: ED Shortness of Breath/Dyspnea Stated Complaint: RONAL Time Seen by Provider: 07/27/17 21:20 Source: patient Mode of arrival: ambulatory Limitations: no limitations Nursing Notes Reviewed: Yes Vital Signs Reviewed: Yes - History of Present Illness 76-year-old male with a history of hypertension, COPD presents for evaluation of dyspnea. Patient notes a nonproductive cough as well as subjective fevers over the past week. Patient notes he has been taking his inhalers at home. Patient has not had a significant benefit. Patient also notes some intermittent chest pain and left arm pain. Patient does not require oxygen at home. The patient reports some vomiting related to the cough. Denies URI symptoms. Denies any abdominal pain. Denies history of heart disease. - Related Data Home Medications Medication Instructions Recorded Confirmed Aspirin 81 mg PO DAILY 12/15/15 03/24/17 Carvedilol 25 mg PO BID 12/15/15 03/24/17 Citalopram Hydrobromide 40 mg PO DAILY 12/15/15 03/24/17 [Citalopram HBr] Gabapentin [Neurontin] 300 mg PO TID 12/15/15 03/24/17 Lovastatin [Mevacor] 20 mg PO DAILY 12/15/15 03/24/17 Pantoprazole Sodium 40 mg PO DAILY 12/15/15 03/24/17 ALPRAZolam [Alprazolam] 2 mg PO TID PRN 04/04/16 03/24/17 Albuterol Neb [Proventil Neb] 2.5 mg IH TID PRN 04/04/16 03/24/17 Diclofenac Sodium [Voltaren] 2 appl TP AD 09/07/16 03/24/17 Fluticasone Propionate Nasal 1 spray NS DAILY 09/07/16 03/24/17 [Flonase] Montelukast [Singulair] 10 mg PO DAILY 09/07/16 03/24/17 amLODIPine [Norvasc] 10 mg PO DAILY 09/07/16 03/24/17 Albuterol Sulfate [Proventil Hfa] 2 puff IH QID PRN 03/24/17 03/24/17 Diclofenac Sodium [Voltaren] 75 mg PO BID PRN 03/24/17 03/24/17 Oxycodone HCl [Roxicodone 30 MG 30 mg PO Q4H PRN 03/24/17 03/24/17 Immed Release] Previous Rx's Medication Instructions Recorded Isosorbide MONOnitrate (24 HR) 60 mg PO DAILY #30 tab.er.24h 09/11/16 [Imdur] hydrALAZINE [HydrALAZINE] 50 mg PO TID #180 tablet 09/11/16 Azithromycin [Zithromax] 250 mg PO Q24H #5 tablet 03/26/17 Cefdinir [Omnicef] 300 mg PO BID #12 capsule 03/26/17 Magic Mouthwash 5 ml PO TID PRN #1 bottle 03/26/17 predniSONE [PredniSONE] 40 mg PO DAILY #5 tab 03/26/17 valACYclovir [Valtrex] 500 mg PO QID #56 tab 03/26/17 Naproxen [Naprosyn] 500 mg PO BID PRN #10 tablet 04/16/17 Allergies Allergy/AdvReac Type Severity Reaction Status Date / Time tetanus toxoid, adsorbed Allergy Swelling Verified 03/24/17 18:23 of Lip/Tongue/Throat All systems ED: reviewed and negative except as stated. Constitutional: Reports: as per HPI, fever Eyes: Reports: as per HPI ENT ED: Reports: as per HPI Cardiovascular: Reports: as per HPI, chest pain Respiratory: Reports: as per HPI Gastrointestinal: Reports: as per HPI Genitourinary: Reports: as per HPI Musculoskeletal: Reports: as per HPI Integumentary: Reports: as per HPI Neurological: Reports: as per HPI Psychiatric: Reports: as per HPI Endocrine: Reports: as per HPI Hematological/Lymphatic: Reports: as per HPI Past Medical History - Past Medical History Medical history: Reports: asthma, coronary artery disease, hypertension, renal disease, other Surgical history: Reports: cholecystectomy, herniorrhaphy, orthopedic, other Psychiatric history: Reports: no psych history - Social History Smoking Status: Former smoker Smokeless Tobacco Status: No Alcohol use: Reports: none Drug use: Reports: none Physical Exam - General Limitations: no limitations General appearance: alert, in distress - Head Head exam: atraumatic, normocephalic, normal inspection - Eye Eye exam: Present: normal appearance, PERRL, EOMI - ENT ENT exam: normal exam, normal oropharynx, mucous membranes moist - Neck Neck exam: Present: normal inspection, full ROM, trachea midline - Chest Chest inspection: Present: normal inspection, symmetric chest wall rise - Respiratory Respiratory exam: Present: respiratory distress, wheezes (Tight inspiratory and expiratory wheezes.) - Cardiovascular Cardiovascular exam: Present: regular rate, normal rhythm. Absent: systolic murmur - Abdominal Exam Abdominal exam: Present: soft, Non-Tender - Extremities Exam Extremities exam: Present: normal inspection. Absent: pedal edema - Back Exam Back exam: Present: normal inspection, full ROM. Absent: tenderness - Neurological Exam Neurological exam: Present: alert, oriented X3 - Skin Skin exam: Present: warm, dry, intact, normal color Course Course Narrative: Patient seen and examined. Patient appears to be in distress with increased work of breathing. Patient has tight lungs. Patient will need triple nebs steroids. EKG chest x-ray as well as lab work. - Reevaluation(s) Reevaluation #1: Patient's airways intermittently improved. Will get repeated albuterol. Time: 22:41 Vital Signs Temperature 97.9 F 07/27/17 21:17 Pulse Rate 83 07/27/17 21:17 Respiratory Rate 36 07/27/17 21:17 Blood Pressure 194/80 07/27/17 21:17 O2 Sat by Pulse Oximetry 99 07/27/17 21:17 Temperature 97.9 F 07/27/17 21:17 Pulse Rate 80 07/27/17 23:38 Respiratory Rate 16 07/27/17 23:38 Blood Pressure 171/77 07/27/17 23:38 O2 Sat by Pulse Oximetry 100 07/27/17 23:38 Oxygen Delivery Oxygen Delivery Aerosol Mask Shortness of Breath/Dyspnea - [facility] Narrative Medical decision making narrative: Patient seen and examined. Patient did have increased work of breathing. Patient has a history of COPD. Patient was treated with triple nebs. Patient was also repeated with subsequent dose of albuterol. Chest x-ray shows no acute abnormalities. EKG is unremarkable. Patient does have baseline chronic kidney disease. Patient also has chronic anemia. Given the degree of the patient's distress and increase that usage patient will be benefited from inpatient admission and therapy. Hospitalist recommended flu swab that they will follow-up. Patient felt comfortable being admitted. - Lab Data Lab results reviewed: Yes I reviewed the patient's lab results. Result diagrams: 07/27/17 21:33 07/27/17 21:33 Lab Results 07/27/17 07/27/17 07/27/17 Range/Units 21:33 21:33 21:33 WBC 8.5 (4.3-11.1) K/mcL RBC 4.12 L (4.19-5.50) M/mcL Hgb 11.6 L (12.9-16.9) g/dL Hct 34.5 L (37.5-50.1) % MCV 83.7 (83.0-100.0) fL MCH 28.2 (28.0-33.3) pg MCHC 33.6 (31.6-35.5) g/dL RDW 12.9 (11.5-14.5) % Plt Count 154 (140-400) K/mcL MPV 9.7 (9.4-12.4) fL Immature Gran % 1.1 (0-4) % Seg Neutrophils % 74.5 % Lymphocytes % 11.6 % Monocytes % 8.4 % Eosinophils % 4.0 % Basophils % 0.4 % Neutrophils # 6.3 (1.6-8.9) K/mcL Lymphocytes # 1.0 (0.6-4.6) K/mcL Monocytes # 0.7 (0.0-1.3) K/mcL Eosinophils # 0.3 (0.0-0.6) K/mcL Basophils # 0.0 (0.0-0.2) K/mcL Sodium 142 (136-145) mEq/L Potassium 3.7 (3.5-5.1) mEq/L Chloride 102 (98-107) mEq/L Carbon Dioxide 31 H (23-29) mEq/L BUN 26 H (8-23) mg/dL Creatinine 2.13 H (0.70-1.30) mg/dL Est GFR ( Amer) 37 L (> 60) Est GFR (Non-Af Amer) 30 L (> 60) BUN/Creatinine Ratio 12 (6-26) Glucose 107 H (70-105) mg/dL Calculated Osmolality 299 (280-300) Calcium 9.1 (8.6-10.3) mg/dL Troponin I < 0.03 (< 0.04) ng/mL B-Natriuretic Peptide (Less than 100) pg/mL TSH 2.050 (0.340-5.600) mcIU/mL 07/27/17 Range/Units 21:33 WBC (4.3-11.1) K/mcL RBC (4.19-5.50) M/mcL Hgb (12.9-16.9) g/dL Hct (37.5-50.1) % MCV (83.0-100.0) fL MCH (28.0-33.3) pg MCHC (31.6-35.5) g/dL RDW (11.5-14.5) % Plt Count (140-400) K/mcL MPV (9.4-12.4) fL Immature Gran % (0-4) % Seg Neutrophils % % Lymphocytes % % Monocytes % % Eosinophils % % Basophils % % Neutrophils # (1.6-8.9) K/mcL Lymphocytes # (0.6-4.6) K/mcL Monocytes # (0.0-1.3) K/mcL Eosinophils # (0.0-0.6) K/mcL Basophils # (0.0-0.2) K/mcL Sodium (136-145) mEq/L Potassium (3.5-5.1) mEq/L Chloride (98-107) mEq/L Carbon Dioxide (23-29) mEq/L BUN (8-23) mg/dL Creatinine (0.70-1.30) mg/dL Est GFR ( Amer) (> 60) Est GFR (Non-Af Amer) (> 60) BUN/Creatinine Ratio (6-26) Glucose (70-105) mg/dL Calculated Osmolality (280-300) Calcium (8.6-10.3) mg/dL Troponin I (< 0.04) ng/mL B-Natriuretic Peptide 376 H (Less than 100) pg/mL TSH (0.340-5.600) mcIU/mL - Radiology Data Radiology results reviewed: Yes I reviewed the patient's radiology results. Chest X-Ray 07/27/17 21:21 IMPRESSION: No acute cardiopulmonary abnormality. D/ / Pedro Luis Ortega / Pedro Luis Ortega Interpreting Provider: Pedro Luis Ortega - EKG Data EKG attestation: Yes I reviewed and interpreted this EKG. EKG shows normal: Reports: sinus rhythm Rate: Reports: normal Rhythm: Reports: NSR [place]/QRS: Reports: left axis deviation Q waves: Reports: III, aVF T wave inversions noted in: Reports: v1 Interpretation: Reports: no acute changes, unchanged when compared to prior tracing (date) (03/2017) SJason - [place] Situation: Demographics Background: Presenting Complaint Assessment: Vital Signs, Course and respsone to treatment, Patient/Family Expectation Recommendation: Barrier(s) to disposition, Recommendation based on pending studies, treatments, or consults S.Yimi Report Given to: Dr. Arsenio Crowder Repor Time: 23:33 Attestation Statement - Attestation Attestation: I, Abraham Patel MD, personally evaluated this patient and discussed their management with the resident physician. I reviewed the resident's note and agree with the documented findings, medical decision making, and plan of care. 76-year-old male presents to the emergency department with a complaint of increased shortness of breath and wheezing for the past few days. Has been increased cough with a small amount of brownish sputum production. He denies any chest pain but does complain of left arm pain from the shoulder down to the fingers. He states this arm pain started a week ago and has been constant. He does have a history of COPD. He is not on home oxygen. He does take nebulizer treatments at home. reports he has used his nebulizer 5 times a day with no improvement. On examination patient is a well-developed obese male in mild respiratory distress. He is alert and oriented 3. There is no cyanosis or diaphoresis. Chest is nontender to palpation. There are diffuse tight bilateral expiratory wheezes. Heart regular rate and rhythm. Abdomen is soft and nontender with normal bowel sounds. Labs reviewed. Chest x-ray negative. EKG shows a normal sinus rhythm with no acute ischemic changes or ectopy. Patient received Solu-Medrol 125 mg IV and triple DuoNeb treatment. Wheezing continued and albuterol treatments ordered. The hospitalist, Dr. Cesar, was consulted and accepted admission of the patient.
[2017-07-27 21:45] LABS: Basophils % 0.4 %; Eosinophils # 0.3 K/mcL (0.0-0.6); Hematocrit 34.5 % (37.5-50.1); Hemoglobin 11.6 g/dL (12.9-16.9); Immature Granulocytes % 1.1 % (0-4); Lymphocytes % 11.6 %; Mean Corpuscular HGB Conc 33.6 g/dL (31.6-35.5); Mean Corpuscular Hemoglobin 28.2 pg (28.0-33.3); Mean Corpuscular Volume 83.7 fL (83.0-100.0); Mean Platelet Volume 9.7 fL (9.4-12.4); Monocytes # 0.7 K/mcL (0.0-1.3); Monocytes % 8.4 %; Neutrophils # 6.3 K/mcL (1.6-8.9); Platelet Count 154 K/mcL (140-400); Red Blood Count 4.12 M/mcL (4.19-5.50); Red Cell Distribution Width 12.9 % (11.5-14.5); Segmented Neutrophils % 74.5 %
[2017-07-27 22:30] LABS: Calcium 9.1 mg/dL (8.6-10.3); Potassium 3.7 mEq/L (3.5-5.1)
[2017-07-27] MEDS ORDERED: Albuterol Neb 1.25 MG/3 ML VIAL IH ONE (22:32)
[2017-07-27] MEDS ORDERED: Levofloxacin 750 MG/150 ML 750 MG/150 ML BAG IVPB ONE (23:13)
[2017-07-27 23:54] LABS: Thyroid Stimulating Hormone 2.05 mcIU/mL (0.340-5.600)
[2017-07-28] MEDS ORDERED: Ondansetron 4 MG/2 ML VIAL IVP PRN (00:16)
[2017-07-28] MEDS ORDERED: Acetaminophen 325 MG TABLET PO PRN (00:16)
[2017-07-28] MEDS ORDERED: *HR* Morphine 2 MG/ML SYRINGE IVP PRN (00:16)
[2017-07-28] MEDS ORDERED: Naloxone 0.4 MG/ML INJ IVP PRN (00:16)
--- NOTE | 2017-07-28 00:21 | Internal Med History&Physical ---
Date of Encounter: 07/27/17 Time of Encounter: 23:40 Assessment and Plan (1) COPD exacerbation Current visit: Yes Status: Acute acute COPD exacerbation due to acute bacterial bronchitis ROcephin , solumedrol duonebs, O2 therapy check influenza Omeprazole for GI and subQ heparin for DVT prophylaxis. Admit for observation. Full code. Time spent: 40 min (2) Hypertensive urgency Current visit: Yes Status: Acute hydralazine IV prn, continue home meds (3) Acute bronchitis Current visit: No Status: Acute Qualifiers: Bronchitis organism: unspecified organism Qualified Code(s): J20.9 - Acute bronchitis, unspecified (4) CAD (coronary artery disease) Current visit: No Status: Chronic ASA Qualifiers: Coronary Disease-Associated Artery/Lesion type: zuni artery [place] vs. transplanted heart: zuni heart Associated angina: angina presence unspecified Qualified Code(s): I25.10 - Atherosclerotic heart disease of zuni coronary artery without angina pectoris (5) History of spontaneous rupture of esophagus Current visit: No Status: Resolved (6) CKD (chronic kidney disease) stage 3, GFR 30-59 ml/min Current visit: Yes Status: Acute stable Internal Medicine - H&P: HPI Chief complaint: shortness of breath Admitted From: Emergency Dept History of present illness: Mr. Thrasher is a 76 year old male with a past medical history of COPD not O2 dep , CKD3, CAD, cervical foraminal stenosis, who came to the ER complaining of dificulty breathing for the past week, worse in the past few days, having brownish phlegm, shills, CXR did not show any acute finding. BP was 194/80, RR of 36, not improving at home with nebulizers. Denied sick contacts. Was given Levaquin and solumedrol in the Er. voMITED ONCE AFTER COUGHING. Has been experiencing left arm pain for the past 6 months. MRI of the cervical spine from May showed multiple levels of cervical foraminal stenosis. The patient's family refused to be admitted to the 2nd floor and threatened to leave to [place] if he would be admitted there. In the end they were given the option to be trasferred but the patient agreed to be admitted to this hospital. They mentioned that if something goes wrong they "would nadiya". Possibility of transfer was again discussed as they had a bad experience last time here with the nursing staff in the 2nd floor. 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-4 and C4-5, BPH, diverticulosis, colitis, asthma, HLD) Psychiatric history: anxiety, depression - Past Surgical History Surgical History: cholecystectomy, herniorrhaphy, orthopedic, other, other ( abdominal hernia repair, esophageal surgery) - Social History Smoking Status: Former smoker Smokeless Tobacco Status: No Alcohol use: none Drug use: none - Family History Brother Adopted: No Living Status: Hx Family Cardiac Disorders: No Hx Family Respiratory Disorders: Yes (COPD) Hx Family Cancer: Yes (Metastatic) Hx Family GI Disorders: No Hx Family Endocrine Disorder: No Hx Family Neuromuscular Disorders: No Hx Family Neurologic Disorders: No Hx Family HEENT Disorders: No Hx Family Autoimmune Disorders: No Father Living Status: Hx Family Cardiac Disorders: Yes (Enlarged heart, Valve replacement) Hx Family Respiratory Disorders: No Hx Family Cancer: No Hx Family GI Disorders: No Hx Family Endocrine Disorder: No Hx Family Neuromuscular Disorders: No Hx Family Neurologic Disorders: No Hx Family HEENT Disorders: No Hx Family Autoimmune Disorders: No - Additional Family History Additional family history: brother with colon cancer, father with CAD and HTN Internal Medicine - H&P: Meds Aspirin 81 mg PO DAILY 12/15/15 [History] Carvedilol 25 mg PO BID 12/15/15 [History] Citalopram Hydrobromide [Citalopram HBr] 40 mg PO DAILY 12/15/15 [History] Gabapentin [Neurontin] 300 mg PO TID 12/15/15 [History] Lovastatin [Mevacor] 20 mg PO DAILY 12/15/15 [History] Pantoprazole Sodium 40 mg PO DAILY 12/15/15 [History] ALPRAZolam [Alprazolam] 2 mg PO TID PRN 04/04/16 [History] Albuterol Neb [Proventil Neb] 2.5 mg IH TID PRN 04/04/16 [History] Diclofenac Sodium [Voltaren] 2 appl TP AD 09/07/16 [History] Fluticasone Propionate Nasal [Flonase] 1 spray NS DAILY 09/07/16 [History] Montelukast [Singulair] 10 mg PO DAILY 09/07/16 [History] amLODIPine [Norvasc] 10 mg PO DAILY 09/07/16 [History] Isosorbide MONOnitrate (24 HR) [Imdur] 60 mg PO DAILY #30 tab.er.24h 09/11/16 [ Rx] hydrALAZINE [HydrALAZINE] 50 mg PO TID #180 tablet 09/11/16 [Rx] Albuterol Sulfate [Proventil Hfa] 2 puff IH QID PRN 03/24/17 [History] Diclofenac Sodium [Voltaren] 75 mg PO BID PRN 03/24/17 [History] Oxycodone HCl [Roxicodone 30 MG Immed Release] 30 mg PO Q4H PRN 03/24/17 [ History] Azithromycin [Zithromax] 250 mg PO Q24H #5 tablet 03/26/17 [Rx] Cefdinir [Omnicef] 300 mg PO BID #12 capsule 03/26/17 [Rx] Magic Mouthwash 5 ml PO TID PRN #1 bottle 03/26/17 [Rx] predniSONE [PredniSONE] 40 mg PO DAILY #5 tab 03/26/17 [Rx] valACYclovir [Valtrex] 500 mg PO QID #56 tab 03/26/17 [Rx] Naproxen [Naprosyn] 500 mg PO BID PRN #10 tablet 04/16/17 [Rx] 3 Allergy/AdvReac Type Severity Reaction Status Date / Time tetanus toxoid, adsorbed Allergy Swelling Verified 03/24/17 18:23 of Lip/Tongue/Throat All Systems PM: A 10-system review of systems was performed and is negative for pertinent findings except as documented above in the HPI. Review of systems: SOB, left arm pain , other systems out of the 10 reviewed were negative - Constitutional Vitals: Temp Pulse Resp BP Pulse Ox 97.9 F 80 16 171/77 100 07/27/17 21:17 07/27/17 23:38 07/27/17 23:38 07/27/17 23:38 07/27/17 23:38 General appearance: Present: A&O X 3 - Head Head exam: Present: atraumatic, normocephalic - Eye Eye exam: Present: PERRL, conjuntiva pink, sclera anicteric Pupils: Present: PERRL - Neck Neck exam general surgery: Present: supple, trachea midline. Absent: lymphadenopathy - Respiratory Respiratory exam: Present: CTAB, rales, wheezes. Absent: accessory muscle use, rhonchi - Cardiovascular Cardiovascular exam: Present: RRR, +S1, +S2. Absent: diastolic murmur, gallop, rubs, systolic murmur - GI/Abdominal GI/Abdominal exam: Present: normal bowel sounds, soft, no peritoneal signs. Absent: distended, tenderness - Extremities Exam Extremities exam: Present: warm, radial pulses palpable and symmetrical. Absent : calf tenderness, cyanotic, pedal edema - Neurological Exam Neurological exam: Present: CN II-XII intact, oriented X3, no focal deficits. Absent: pronater drift, facial droop, speech deficit - Skin Skin exam: Present: dry, intact Internal Med - H&P Results - Labs CBC & Chem 7: 07/27/17 21:33 07/27/17 21:33
[2017-07-28] MEDS: Isosorbide MONOnitrate (24 HR) 60 MG TAB.ER.24H PO SCH ×2 (00:59→07:44)
[2017-07-28] MEDS: cefTRIAXone 1,000 MG in Water for inj. (sterile) 20 ML 10 ML IVP SCH ×2 (00:59→20:18)
[2017-07-28] MEDS: amLODIPine 5 MG TABLET PO SCH ×2 (00:59→07:43)
[2017-07-28] MEDS: hydrALAZINE 25 MG TABLET PO SCH ×4 (00:59→20:18)
[2017-07-28] MEDS: Ipratropium/Albuterol Neb 3 ML IH SCH ×4 (03:32→22:38)
[2017-07-28] MEDS: *HR* Heparin 5,000 UNIT/ML VIAL SQ SCH ×3 (05:28→20:19)
[2017-07-28 06:26] LABS: Hemoglobin 10.9 g/dL (12.9-16.9); Mean Corpuscular HGB Conc 34.1 g/dL (31.6-35.5); Mean Corpuscular Hemoglobin 28.1 pg (28.0-33.3); Mean Corpuscular Volume 82.5 fL (83.0-100.0); Mean Platelet Volume 9.8 fL (9.4-12.4); Platelet Count 125 K/mcL (140-400); Red Blood Count 3.88 M/mcL (4.19-5.50); Red Cell Distribution Width 12.8 % (11.5-14.5)
[2017-07-28 06:44] LABS: Calcium 8.9 mg/dL (8.6-10.3); Potassium 3.5 mEq/L (3.5-5.1)
[2017-07-28] MEDS: Aspirin 81 MG TAB.CHEW PO SCH (07:43)
[2017-07-28] MEDS: Gabapentin 100 MG CAPSULE PO SCH ×3 (07:43→20:18)
[2017-07-28] MEDS: MethylPREDNISolone 40 MG/ML VIAL IVP SCH ×2 (07:44→14:14)
[2017-07-28 12:28] LABS: Lymphocytes # 0.4 K/mcL (0.6-4.6); Neutrophils # 6.5 K/mcL (1.6-8.9)
[2017-07-28 12:29] LABS: Platelet Estimate Slight Decrease (Normal)
[2017-07-28] MEDS: *HR* OxyCODONE Immed Rel 15 MG TABLET PO PRN (14:13)
--- NOTE | 2017-07-28 16:39 | Internal Med Progress Note ---
Date of Encounter: 07/28/17 Time of Encounter: 16:34 - Assessment and plan (1) COPD exacerbation Current Visit: Yes Status: Acute Assessment and plan: has underlying COPD. Symptomatic with increasing shortness of breath and diffuse wheezing. Suspect combination of acute COPD exacerbation and acute bacterial bronchitis. Continue IV Rocephin, azithromycin, steroids. Schedule DuoNeb's. Resp PCR, urinary antigens pending. (2) Acute bronchitis Current Visit: No Status: Acute Assessment and plan: Symptomatic with productive cough, shortness of breath and wheezing. Plan as noted above. Qualifiers: Bronchitis organism: unspecified organism Qualified Code(s): J20.9 - Acute bronchitis, unspecified (3) Hypertensive urgency Current Visit: Yes Status: Acute Assessment and plan: with SBP's in 180s to 190s on arrival. BP improved with resuming home BP medication. Continue PRN hydralazine. Monitor BP and titrate PRN (4) CKD (chronic kidney disease) stage 3, GFR 30-59 ml/min Current Visit: No Status: Chronic Assessment and plan: per hx. Cr 2.19 which appears slightly worse than baseline. Gentle IV fluids, avoid nephrotoxic agents as possible. Monitor repeat renal function. (5) DVT prophylaxis Current Visit: No Status: Acute - Time Spent With Patient less than 15 minutes - Subjective Interval history: Seen and examined at bedside. Patient is new to me, information obtained from chart review and patient report. Still with some shortness of breath significantly improved. No CP - Constitutional Vitals: Temp Pulse Resp BP Pulse Ox 98.1 F 88 16 145/69 95 07/28/17 15:00 07/28/17 15:00 07/28/17 15:00 07/28/17 15:00 07/28/17 15:00 General appearance: Present: A&O X 3, no acute distress - Head Head exam: Present: atraumatic, normocephalic - Eye Eye exam: Present: PERRL, conjuntiva pink, sclera anicteric Pupils: Present: PERRL - Neck Neck exam general surgery: Present: supple, trachea midline. Absent: lymphadenopathy - Respiratory Respiratory exam: Present: rhonchi, wheezes. Absent: accessory muscle use, rales - Cardiovascular Cardiovascular exam: Present: RRR, +S1, +S2. Absent: diastolic murmur, gallop, rubs, systolic murmur - GI/Abdominal GI/Abdominal exam: Present: normal bowel sounds, soft, no peritoneal signs. Absent: distended, tenderness - Extremities Exam Extremities exam: Present: warm, radial pulses palpable and symmetrical. Absent : calf tenderness, cyanotic, pedal edema - Neurological Exam Neurological exam: Present: CN II-XII intact, oriented X3, no focal deficits. Absent: pronater drift, facial droop, speech deficit - Skin Skin exam: Present: dry, intact Internal Medicine: Result - Labs CBC & Chem 7: 07/28/17 06:00 07/28/17 06:00 Labs: Short CBC 07/28/17 Range/Units 06:00 WBC 6.9 (4.3-11.1) K/mcL Hgb 10.9 L (12.9-16.9) g/dL Hct 32.0 L (37.5-50.1) % Plt Count 125 L (140-400) K/mcL Neutrophils # 6.5 (1.6-8.9) K/mcL BMP 07/28/17 06:00 Sodium 142 Potassium 3.5 Chloride 103 Carbon Dioxide 28 BUN 28 H Creatinine 2.13 H Glucose 178 H Calcium 8.9 Consult Discharge Plan - Plan Referrals: Tommie Srivastava DO [Primary Care Provider] -
[2017-07-28] MEDS ORDERED: 0.9 % Sodium Chloride 1,000 ML IVC SCH (17:00)
[2017-07-28] MEDS: Azithromycin 500 MG in D5% in Water 250 ML IVPB SCH (18:02)
[2017-07-28 18:55] LABS: Adenovirus Not Detected (Not Detect); Bordetella Pertussis Not Detected (Not Detect); Chlamydophila pneumoniae Not Detected (Not Detect); Coronavirus 229E Not Detected (Not Detect); Coronavirus HKU1 Not Detected (Not Detect); Coronavirus NL63 Not Detected (Not Detect); Coronavirus OC43 Not Detected (Not Detect); Human Metapneumovirus Not Detected (Not Detect); Human Rhinovirus/Enterovirus Not Detected (Not Detect); Influenza A Subtype 2009 H1 Not Detected (Not Detect); Influenza A Untypeable Not Detected (Not Detect); Influenza B Not Detected (Not Detect); Mycoplasma pneumoniae Not Detected (Not Detect); Parainfluenza Virus 1 Not Detected (Not Detect); Parainfluenza Virus 2 Not Detected (Not Detect); Parainfluenza Virus 3 Not Detected (Not Detect); Parainfluenza Virus 4 Not Detected (Not Detect); Respiratory Syncytial Virus Not Detected (Not Detect)
--- NOTE | 2017-07-28 19:36 | Electrocardiograph Report ---
[place] [id number] Test Date: 2017-07-27 Pat Name: Froest Thrasher Department: 104 Room: 3B48 Gender: M Yarn Tester: : 1940 Requested By: Abraham Patel Order Number: [id number] Reading MD: Kennedy Marina MD Measurements Intervals [place] Rate: 77 P: -76 TN: 158 QRS: -42 QRSD: 85 T: 41 QT: 387 QTc: 419 Interpretive Statements SINUS RHYTHM MARKED LEFT AXIS DEVIATION Electronically Signed On 07-28-2017 19:34:58 EST by Kennedy Marina MD
[2017-07-29] MEDS: MethylPREDNISolone 40 MG/ML VIAL IVP SCH ×3 (00:50→15:12)
[2017-07-29] MEDS: Ipratropium/Albuterol Neb 3 ML IH SCH ×4 (04:07→21:25)
[2017-07-29] MEDS: *HR* Heparin 5,000 UNIT/ML VIAL SQ SCH ×3 (04:40→21:05)
[2017-07-29] MEDS: *HR* OxyCODONE Immed Rel 15 MG TABLET PO PRN (04:40)
[2017-07-29] MEDS: Isosorbide MONOnitrate (24 HR) 60 MG TAB.ER.24H PO SCH (07:32)
[2017-07-29] MEDS: Aspirin 81 MG TAB.CHEW PO SCH (07:32)
[2017-07-29] MEDS: amLODIPine 5 MG TABLET PO SCH (07:32)
[2017-07-29] MEDS: hydrALAZINE 25 MG TABLET PO SCH ×3 (07:33→21:05)
[2017-07-29] MEDS: Gabapentin 100 MG CAPSULE PO SCH ×3 (07:33→21:05)
[2017-07-29 08:10] LABS: Calcium 8.6 mg/dL (8.6-10.3); Potassium 4.2 mEq/L (3.5-5.1)
--- NOTE | 2017-07-29 13:34 | Internal Med Progress Note ---
Date of Encounter: 07/29/17 Time of Encounter: 13:30 - Assessment and plan (1) Acute bronchitis with asthma with acute exacerbation Current Visit: No Status: Acute Assessment and plan: The patient is having significant wheezing. I do not think he is ready for discharge. Continue with IV Solu-Medrol. No plans on weaning today. Continue with IV antibiotics with Zithromax and ceftriaxone. He is not requiring any oxygen. Continue with the inhalers. (2) CKD (chronic kidney disease) stage 3, GFR 30-59 ml/min Current Visit: No Status: Chronic Assessment and plan: per hx. . Seems to be around baseline. Stop IV hydration. avoid nephrotoxic agents as possible. Monitor repeat renal function. (3) HTN (hypertension) Current Visit: No Status: Chronic Assessment and plan: Patient was in hypertensive urgency on admission. This seems to have resolved. He is continued on his blood pressure medications. We will continue to monitor. Qualifiers: Hypertension type: essential hypertension Qualified Code(s): I10 - Essential (primary) hypertension (4) DVT prophylaxis Current Visit: No Status: Acute Assessment and plan: Heparin subcutaneous. - Subjective Interval history: Patient feels better however he continues to have wheezing that is significant. He is on room air however. He has been afebrile. He tells me he is dizzy with coughing. - Constitutional Vitals: Temp Pulse Resp BP Pulse Ox 97.6 F 76 17 106/50 92 07/29/17 12:06 07/29/17 12:06 07/29/17 12:06 07/29/17 12:06 07/29/17 12:06 General appearance: Present: A&O X 3, no acute distress Exam: GEN: NAD CVS: RRR. S1, S2, No m/r/g RESP: Diffuse inspiratory and expiratory wheezes ABD: Soft, NT, ND, +BS EXT: No edema. 2+ DP. No rashes NEURO: Nonfocal Internal Medicine: Result - Labs CBC & Chem 7: 07/28/17 06:00 07/29/17 06:52 Labs: BMP 07/29/17 06:52 Sodium 142 Potassium 4.2 Chloride 103 Carbon Dioxide 30 H BUN 37 H Creatinine 2.01 H Glucose 165 H Calcium 8.6 - Impressions Impressions Echocardiogram 07/28/17 16:55 Impressions: LVEF 60-65%. Moderate aortic regurgitation. Moderate pulmonary hypertension. Left Ventricular Wall Motion: Rest Echo Findings All wall segments showed normal motion. Findings: Study Quality * Technically adequate exam. Right Ventricle * Normal right ventricular structure and function. Aortic Valve * Moderate aortic regurgitation. * Trileaflet aortic valve. * Aortic valve sclerosis Aorta * Normally sized aortic root. Pericardium * The pericardium appears normal. Mitral Valve * No mitral stenosis. * Mild mitral annular calcification * Trace mitral regurgitation. ECG Findings * Normal sinus rhythm. Left Atrium * Mildly dilated left atrium. Tricuspid Valve * Mild tricuspid regurgitation. * No tricuspid stenosis. * Estimated RVSP is 56 mmHg. * Moderate pulmonary hypertension. Left Ventricle * LVEF 60-65%. * Indeterminate diastolic function. IVC * The IVC is not well evaluated. Right Atrium * Right atrium is not well visualized. Interatrial Septum * Interatrial septum not well evaluated. Consult Discharge Plan - Plan Referrals: Tommie Srivastava DO [Primary Care Provider] -
[2017-07-29] MEDS: Fluticasone Propionate Nasal 50 MCG/SPRAY BOTTLE NS SCH (15:12)
[2017-07-29] MEDS: Azithromycin 500 MG in D5% in Water 250 ML IVPB SCH (17:41)
[2017-07-29] MEDS: Budesonide Neb 0.5 MG/2 ML IH SCH ×3 (20:34→20:43)
[2017-07-29] MEDS: cefTRIAXone 1,000 MG in Water for inj. (sterile) 20 ML 10 ML IVP SCH (21:04)
[2017-07-29] MEDS: ALPRAZolam 1 MG TABLET PO PRN (21:06)
[2017-07-30] MEDS: MethylPREDNISolone 40 MG/ML VIAL IVP SCH ×3 (00:30→16:14)
[2017-07-30] MEDS: Ipratropium/Albuterol Neb 3 ML IH SCH ×6 (03:56→23:37)
[2017-07-30] MEDS: *HR* Heparin 5,000 UNIT/ML VIAL SQ SCH ×3 (05:51→20:30)
[2017-07-30] MEDS: *HR* OxyCODONE Immed Rel 15 MG TABLET PO PRN ×2 (05:58→16:16)
[2017-07-30] MEDS: Fluticasone Propionate Nasal 50 MCG/SPRAY BOTTLE NS SCH (05:58)
[2017-07-30 06:38] LABS: Calcium 8.7 mg/dL (8.6-10.3); Potassium 4.2 mEq/L (3.5-5.1)
[2017-07-30 06:41] LABS: Basophils % 0.1 %; Hematocrit 28.8 % (37.5-50.1); Hemoglobin 9.4 g/dL (12.9-16.9); Immature Granulocytes % 1.2 % (0-4); Lymphocytes # 0.4 K/mcL (0.6-4.6); Lymphocytes % 4.4 %; Mean Corpuscular HGB Conc 32.6 g/dL (31.6-35.5); Mean Corpuscular Hemoglobin 28.4 pg (28.0-33.3); Mean Platelet Volume 10.2 fL (9.4-12.4); Monocytes # 0.3 K/mcL (0.0-1.3); Monocytes % 2.9 %; Neutrophils # 8.4 K/mcL (1.6-8.9); Platelet Count 147 K/mcL (140-400); Red Blood Count 3.31 M/mcL (4.19-5.50); Red Cell Distribution Width 13.2 % (11.5-14.5); Segmented Neutrophils % 91.4 %
[2017-07-30] MEDS: hydrALAZINE 25 MG TABLET PO SCH ×3 (09:03→20:30)
[2017-07-30] MEDS: Gabapentin 100 MG CAPSULE PO SCH ×3 (09:03→20:31)
[2017-07-30] MEDS: Isosorbide MONOnitrate (24 HR) 60 MG TAB.ER.24H PO SCH (09:03)
[2017-07-30] MEDS: Aspirin 81 MG TAB.CHEW PO SCH (09:04)
[2017-07-30] MEDS: amLODIPine 5 MG TABLET PO SCH (09:04)
--- NOTE | 2017-07-30 10:52 | Internal Med Progress Note ---
Date of Encounter: 07/30/17 Time of Encounter: 10:00 - Assessment and plan (1) Acute bronchitis with asthma with acute exacerbation Current Visit: No Status: Acute Assessment and plan: The patient is still having significant wheezing. I will continue with IV Solu- Medrol and no weaning today. We will make DuoNeb scheduled every 4 hours. Continue IV Zithromax. Stop Ceftriaxone. he is not requiring oxygen. (2) CKD (chronic kidney disease) stage 3, GFR 30-59 ml/min Current Visit: No Status: Chronic Assessment and plan: per hx. . Seems to be around baseline. avoid nephrotoxic agents as possible. Monitor repeat renal function. (3) HTN (hypertension) Current Visit: No Status: Chronic Assessment and plan: Patient was in hypertensive urgency on admission. This seems to have resolved. He is continued on his blood pressure medications. We will continue to monitor. Qualifiers: Hypertension type: essential hypertension Qualified Code(s): I10 - Essential (primary) hypertension (4) DVT prophylaxis Current Visit: No Status: Acute Assessment and plan: Heparin subcutaneous. - Subjective Interval history: No acute events. The patient continues to wheeze significantly. He feels better however. There has been no acute issues. He has been afebrile. - Constitutional Vitals: Temp Pulse Resp BP Pulse Ox 97.6 F 75 16 167/80 94 07/30/17 07:14 07/30/17 07:14 07/30/17 07:14 07/30/17 07:14 07/30/17 07:14 General appearance: Present: A&O X 3, no acute distress Exam: GEN: NAD CVS: RRR. S1, S2, No m/r/g RESP: Diffuse inspiratory and expiratory wheezes ABD: Soft, NT, ND, +BS EXT: No edema. 2+ DP. No rashes NEURO: Nonfocal Internal Medicine: Result - Labs CBC & Chem 7: 07/30/17 05:05 07/30/17 05:05 Labs: Short CBC 07/30/17 Range/Units 05:05 WBC 9.2 (4.3-11.1) K/mcL Hgb 9.4 L D (12.9-16.9) g/dL Hct 28.8 L (37.5-50.1) % Plt Count 147 (140-400) K/mcL Neutrophils # 8.4 (1.6-8.9) K/mcL BMP 07/30/17 05:05 Sodium 141 Potassium 4.2 Chloride 105 Carbon Dioxide 32 H BUN 42 H Creatinine 1.97 H Glucose 141 H Calcium 8.7 - Impressions Impressions Echocardiogram 07/28/17 16:55 Impressions: LVEF 60-65%. Moderate aortic regurgitation. Moderate pulmonary hypertension. Left Ventricular Wall Motion: Rest Echo Findings All wall segments showed normal motion. Findings: Study Quality * Technically adequate exam. Right Ventricle * Normal right ventricular structure and function. Aortic Valve * Moderate aortic regurgitation. * Trileaflet aortic valve. * Aortic valve sclerosis Aorta * Normally sized aortic root. Pericardium * The pericardium appears normal. Mitral Valve * No mitral stenosis. * Mild mitral annular calcification * Trace mitral regurgitation. ECG Findings * Normal sinus rhythm. Left Atrium * Mildly dilated left atrium. Tricuspid Valve * Mild tricuspid regurgitation. * No tricuspid stenosis. * Estimated RVSP is 56 mmHg. * Moderate pulmonary hypertension. Left Ventricle * LVEF 60-65%. * Indeterminate diastolic function. IVC * The IVC is not well evaluated. Right Atrium * Right atrium is not well visualized. Interatrial Septum * Interatrial septum not well evaluated. Consult Discharge Plan - Plan Referrals: Tommie Srivastava DO [Primary Care Provider] -
[2017-07-30] MEDS: Budesonide Neb 0.5 MG/2 ML IH SCH ×2 (11:47→20:20)
[2017-07-30] MEDS: Azithromycin 500 MG in D5% in Water 250 ML IVPB SCH (20:30)
[2017-07-31] MEDS: MethylPREDNISolone 40 MG/ML VIAL IVP SCH ×2 (00:43→08:36)
[2017-07-31] MEDS: *HR* OxyCODONE Immed Rel 15 MG TABLET PO PRN ×2 (00:43→08:52)
[2017-07-31] MEDS: Ipratropium/Albuterol Neb 3 ML IH SCH ×5 (04:16→20:18)
[2017-07-31] MEDS: *HR* Heparin 5,000 UNIT/ML VIAL SQ SCH ×3 (05:42→22:01)
[2017-07-31 05:48] LABS: Basophils % 0.3 %; Hematocrit 30.2 % (37.5-50.1); Hemoglobin 9.9 g/dL (12.9-16.9); Immature Granulocytes % 3.4 % (0-4); Lymphocytes # 0.4 K/mcL (0.6-4.6); Lymphocytes % 3.6 %; Mean Corpuscular HGB Conc 32.8 g/dL (31.6-35.5); Mean Corpuscular Hemoglobin 28.4 pg (28.0-33.3); Mean Corpuscular Volume 86.5 fL (83.0-100.0); Mean Platelet Volume 10.1 fL (9.4-12.4); Monocytes # 0.4 K/mcL (0.0-1.3); Monocytes % 3.4 %; Neutrophils # 10.6 K/mcL (1.6-8.9); Nucleated Red Blood Cells 0.3 /100 WBC (0); Platelet Count 179 K/mcL (140-400); Red Blood Count 3.49 M/mcL (4.19-5.50); Red Cell Distribution Width 13.1 % (11.5-14.5); Segmented Neutrophils % 89.3 %
[2017-07-31 06:14] LABS: Calcium 8.9 mg/dL (8.6-10.3); Potassium 4.4 mEq/L (3.5-5.1)
[2017-07-31] MEDS: Budesonide Neb 0.5 MG/2 ML IH SCH ×2 (08:12→20:19)
[2017-07-31] MEDS: Aspirin 81 MG TAB.CHEW PO SCH (08:36)
[2017-07-31] MEDS: Isosorbide MONOnitrate (24 HR) 60 MG TAB.ER.24H PO SCH (08:37)
[2017-07-31] MEDS: amLODIPine 5 MG TABLET PO SCH (08:37)
[2017-07-31] MEDS: Gabapentin 100 MG CAPSULE PO SCH ×3 (08:37→22:00)
[2017-07-31] MEDS: hydrALAZINE 25 MG TABLET PO SCH ×3 (08:37→22:01)
[2017-07-31] MEDS: Fluticasone Propionate Nasal 50 MCG/SPRAY BOTTLE NS SCH (08:52)
[2017-07-31] MEDS ORDERED: Menthol 9.1 MG LOZENGE PO PRN (11:24)
[2017-07-31] MEDS: methylPREDNISolone 125 MG/2 ML VIAL IVP SCH ×2 (12:25→19:39)
--- NOTE | 2017-07-31 12:55 | Internal Med Progress Note ---
Date of Encounter: 07/31/17 Time of Encounter: 10:00 - Assessment and plan (1) Acute bronchitis with asthma with acute exacerbation Current Visit: No Status: Acute Assessment and plan: The patient is still having significant wheezing. I will increase Solu-Medrol to 60 mg IV every 6 hours from 40 mg IV every 8. Continue nebulizer. Check sputum for Gram stain and cultures. Check a CT of chest. The treatment. continue with IV Solu-Medrol and no weaning today. Continue IV Zithromax. he is not requiring oxygen. (2) CKD (chronic kidney disease) stage 3, GFR 30-59 ml/min Current Visit: No Status: Chronic Assessment and plan: per hx. . Seems to be around baseline. avoid nephrotoxic agents as possible. Monitor repeat renal function. (3) HTN (hypertension) Current Visit: No Status: Chronic Assessment and plan: Patient was in hypertensive urgency on admission. This seems to have resolved. He is continued on his blood pressure medications. We will continue to monitor. Qualifiers: Hypertension type: essential hypertension Qualified Code(s): I10 - Essential (primary) hypertension (4) DVT prophylaxis Current Visit: No Status: Acute Assessment and plan: Heparin subcutaneous. - Subjective Interval history: No acute events. He is having a productive cough of brownish sputum. He continues to wheeze significantly. Has not really improved much over the last couple days. He remains on room air. He is been afebrile. - Constitutional Vitals: Temp Pulse Resp BP Pulse Ox 98.0 F 79 18 164/77 90 07/31/17 11:35 07/31/17 11:35 07/31/17 11:35 07/31/17 11:35 07/31/17 11:35 General appearance: Present: A&O X 3, no acute distress Exam: GEN: NAD CVS: RRR. S1, S2, No m/r/g RESP: Diffuse inspiratory and expiratory wheezes ABD: Soft, NT, ND, +BS EXT: No edema. 2+ DP. No rashes NEURO: Nonfocal Internal Medicine: Result - Labs CBC & Chem 7: 07/31/17 04:51 07/31/17 04:51 Labs: Short CBC 07/31/17 Range/Units 04:51 WBC 11.9 H (4.3-11.1) K/mcL Hgb 9.9 L (12.9-16.9) g/dL Hct 30.2 L (37.5-50.1) % Plt Count 179 (140-400) K/mcL Neutrophils # 10.6 H (1.6-8.9) K/mcL BMP 07/31/17 04:51 Sodium 138 Potassium 4.4 Chloride 100 Carbon Dioxide 30 H BUN 50 H Creatinine 2.45 H Glucose 136 H Calcium 8.9 Consult Discharge Plan - Plan Referrals: Tommie Srivastava DO [Primary Care Provider] -
[2017-07-31] MEDS: Azithromycin 500 MG in D5% in Water 250 ML IVPB SCH (21:56)
[2017-08-01] MEDS: Ipratropium/Albuterol Neb 3 ML IH SCH ×6 (00:13→20:01)
[2017-08-01] MEDS: methylPREDNISolone 125 MG/2 ML VIAL IVP SCH ×3 (00:29→23:58)
[2017-08-01] MEDS ORDERED: Furosemide 20 MG/2 ML VIAL IVP ONE (01:00)
[2017-08-01] MEDS ORDERED: Simethicone 80 MG TAB.CHEW PO PRN (01:22)
--- NOTE | 2017-08-01 03:00 | Event Note ---
<Jelani Mao - Last Filed: 08/01/17 03:02> Date of Encounter: 08/01/17 Time of Encounter: 00:35 Paged regarding pt, Mr. Thrasher, reported feeling agitated after solu-medrol, met with yelling upon start of encounter, will hold solu-medrol for now, continue duonebs/o2 for copd exacerbation. Patient reports sensation of increased weight gain/central girth, subjective report of water weight gain over past 4 days, exam negative for tympany, +for trace edema, neck circumference above average for height, without JVD. Has suboptimal urine output past few days, will give 1 time dose of lasix 20mg IVP (aware of CKD/creatinine). Giving simethicone and continuing reported PPI. Went over CT chest, past recent CT abdomen (no acute process), and 07/28/17 echocardiogram (EF 60-65%). Accepting of imaging/diagnostic report, understands weight gain can be in part normal variant obesity in setting of negative imaging and clinical findings that suggest low likelihood CHF. Patient understands and agrees with plan. <Noah Cesar - Last Filed: 08/01/17 10:46> Date of Encounter: 08/01/17
[2017-08-01] MEDS: *HR* Heparin 5,000 UNIT/ML VIAL SQ SCH ×3 (05:55→21:39)
[2017-08-01 06:31] LABS: Basophils % 0.4 %; Hematocrit 28.6 % (37.5-50.1); Hemoglobin 9.5 g/dL (12.9-16.9); Lymphocytes # 0.4 K/mcL (0.6-4.6); Lymphocytes % 4.9 %; Mean Corpuscular HGB Conc 33.2 g/dL (31.6-35.5); Mean Corpuscular Hemoglobin 28.1 pg (28.0-33.3); Mean Corpuscular Volume 84.6 fL (83.0-100.0); Mean Platelet Volume 10.1 fL (9.4-12.4); Monocytes # 0.6 K/mcL (0.0-1.3); Monocytes % 7.8 %; Nucleated Red Blood Cells 0.4 /100 WBC (0); Platelet Count 164 K/mcL (140-400); Red Blood Count 3.38 M/mcL (4.19-5.50); Segmented Neutrophils % 81.9 %
[2017-08-01] MEDS: Budesonide Neb 0.5 MG/2 ML IH SCH ×2 (08:28→20:02)
[2017-08-01 09:12] LABS: Calcium 8.8 mg/dL (8.6-10.3)
[2017-08-01] MEDS: *HR* OxyCODONE Immed Rel 15 MG TABLET PO PRN (09:32)
[2017-08-01] MEDS: hydrALAZINE 25 MG TABLET PO SCH ×3 (09:32→21:38)
[2017-08-01] MEDS: Gabapentin 100 MG CAPSULE PO SCH ×3 (09:32→21:38)
[2017-08-01] MEDS: Isosorbide MONOnitrate (24 HR) 60 MG TAB.ER.24H PO SCH (09:33)
[2017-08-01] MEDS: amLODIPine 5 MG TABLET PO SCH (09:33)
[2017-08-01] MEDS: Aspirin 81 MG TAB.CHEW PO SCH (09:33)
[2017-08-01] MEDS: Fluticasone Propionate Nasal 50 MCG/SPRAY BOTTLE NS SCH (09:34)
--- NOTE | 2017-08-01 10:16 | Internal Med Progress Note ---
Date of Encounter: 08/01/17 Time of Encounter: 10:14 - Assessment and plan (1) Acute bronchitis with asthma with acute exacerbation Current Visit: No Status: Acute Assessment and plan: I did increase his Solu-Medrol 60 mg every 6 hours yesterday from 40 mg every 8 hours. He sounds significantly better this morning. Given the fact that he was agitated last night I think it is best to decrease his Solu-Medrol to [address] chest noted with nothing significant. Continue nebulizers. Stop antibiotics as he is at about 5-6 days of those. he is not requiring oxygen. (2) CKD (chronic kidney disease) stage 3, GFR 30-59 ml/min Current Visit: No Status: Chronic Assessment and plan: He did receive Lasix 20 mg IV yesterday. Kidney function improved. Seems to be around baseline. avoid nephrotoxic agents as possible. Monitor repeat renal function. (3) HTN (hypertension) Current Visit: No Status: Chronic Assessment and plan: Patient was in hypertensive urgency on admission. This seems to have resolved. He is continued on his blood pressure medications. We will continue to monitor. Qualifiers: Hypertension type: essential hypertension Qualified Code(s): I10 - Essential (primary) hypertension (4) Lower extremity edema Current Visit: Yes Status: Acute Assessment and plan: We will dose Lasix 20 mg IV twice a day today. Monitor renal function. Monitor INRs. Check BNP. Echo results from earlier in stay showed EF of 60-65 % with moderate aortic aortic regurgitation and moderate pulmonary hypertension. (5) DVT prophylaxis Current Visit: No Status: Acute Assessment and plan: Heparin subcutaneous. - Subjective Interval history: Patient was upset last night as he noticed lower extremity edema. He was given a dose of IV Lasix by the night physician. He is feeling better this morning. Afebrile. On room air. - Constitutional Vitals: Temp Pulse Resp BP Pulse Ox 98.0 F 16 92 157/67 92 08/01/17 06:57 08/01/17 06:57 08/01/17 06:57 08/01/17 06:57 08/01/17 04:05 General appearance: Present: A&O X 3, no acute distress Exam: GEN: NAD CVS: RRR. S1, S2, No m/r/g RESP: Diffuse inspiratory and expiratory wheezes ABD: Soft, NT, ND, +BS EXT: 1+ edema. 2+ DP. No rashes NEURO: Nonfocal Internal Medicine: Result - Labs CBC & Chem 7: 08/01/17 04:59 08/01/17 04:59 Labs: Short CBC 08/01/17 Range/Units 04:59 WBC 7.3 (4.3-11.1) K/mcL Hgb 9.5 L (12.9-16.9) g/dL Hct 28.6 L (37.5-50.1) % Plt Count 164 (140-400) K/mcL Neutrophils # 6.0 (1.6-8.9) K/mcL BMP 08/01/17 04:59 Sodium 138 Potassium 4.0 Chloride 101 Carbon Dioxide 32 H BUN 52 H Creatinine 2.26 H Glucose 112 H Calcium 8.8 - Impressions Impressions Chest CT 07/31/17 12:52 IMPRESSION: New 1 cm ground-glass left upper lobe pulmonary nodule with central nidus. Follow-up recommendations are as below. Dependent reticular and ground-glass opacity bilaterally, with distribution favoring atelectasis. Sequela of granulomatous disease. Atherosclerosis, including coronary artery calcification. Small hiatal hernia. Fleischner Society guidelines for follow-up and management of incidentally detected pulmonary nodules:Single Solid Nodule:Nodule size less than 6 mmIn a low-risk patient, no routine follow-up.In a high-risk patient, optional CT at 12 months. Nodule size equals 6-8 mmIn a low-risk patient, CT at 6-12 months, then consider CT at 18-24 months.In a high-risk patient, CT at 6-12 months, then CT at 18-24 months.Nodule size greater than 8 mmIn a low-risk patient, consider CT, PET/CT, or tissue sampling at 3 months.In a high-risk patient, consider CT, PET/CT, or tissue sampling at 3 months.Multiple Solid Nodules:Nodule size less than 6 mmIn a low-risk patient, no routine follow-up.In a high-risk patient, optional CT at 12 months. Nodule size equals 6-8 mmIn a low-risk patient, CT at 3-6 months, then consider CT at 18-24 months.In a high-risk patient, CT at 3-6 months, then CT at 18-24 months.Nodule size greater than 8 mmIn a low-risk patient, CT at 3-6 months, then consider CT at 18-24 months.In a high-risk patient, CT at 3-6 months, then CT at 18-24 months.- Low risk patients include individuals with minimal or absent history of smoking and other known risk factors.- High risk patients include individuals with a history or smoking or known risk factors.Radiology 2017 http://pubs.rsna.org/doi/full/10.1148/[email or web address] D/ / Ramos Shook MD / Ramos Shook MD Interpreting Provider: Ramos Shook MD Consult Discharge Plan - Plan Referrals: Tommie Srivastava DO [Primary Care Provider] -
[2017-08-01] MEDS: Furosemide 20 MG/2 ML VIAL IVP SCH ×2 (13:59→21:39)
[2017-08-01] MEDS: ALPRAZolam 1 MG TABLET PO PRN (14:02)
[2017-08-02] MEDS: Ipratropium/Albuterol Neb 3 ML IH SCH ×4 (00:14→12:14)
[2017-08-02] MEDS: *HR* Heparin 5,000 UNIT/ML VIAL SQ SCH (05:16)
[2017-08-02 05:50] LABS: Basophils % 0.3 %; Hematocrit 32.4 % (37.5-50.1); Hemoglobin 10.7 g/dL (12.9-16.9); Immature Granulocytes % 4.6 % (0-4); Lymphocytes # 0.2 K/mcL (0.6-4.6); Lymphocytes % 3.1 %; Mean Corpuscular Hemoglobin 27.8 pg (28.0-33.3); Mean Corpuscular Volume 84.2 fL (83.0-100.0); Mean Platelet Volume 9.9 fL (9.4-12.4); Monocytes # 0.3 K/mcL (0.0-1.3); Monocytes % 4.2 %; Neutrophils # 6.8 K/mcL (1.6-8.9); Nucleated Red Blood Cells 0.4 /100 WBC (0); Platelet Count 180 K/mcL (140-400); Red Blood Count 3.85 M/mcL (4.19-5.50); Segmented Neutrophils % 87.8 %
[2017-08-02 06:09] LABS: Calcium 8.9 mg/dL (8.6-10.3); Potassium 4.1 mEq/L (3.5-5.1)
[2017-08-02 07:36] VITALS: BP 166/72
[2017-08-02] MEDS: Budesonide Neb 0.5 MG/2 ML IH SCH (08:04)
[2017-08-02] MEDS: hydrALAZINE 25 MG TABLET PO SCH (08:58)
[2017-08-02] MEDS: Isosorbide MONOnitrate (24 HR) 60 MG TAB.ER.24H PO SCH (08:58)
[2017-08-02] MEDS: Gabapentin 100 MG CAPSULE PO SCH (08:59)
[2017-08-02] MEDS: Aspirin 81 MG TAB.CHEW PO SCH (08:59)
[2017-08-02] MEDS: methylPREDNISolone 125 MG/2 ML VIAL IVP SCH (08:59)
[2017-08-02] MEDS: Furosemide 20 MG/2 ML VIAL IVP SCH (08:59)
[2017-08-02] MEDS: amLODIPine 5 MG TABLET PO SCH (08:59)
[2017-08-02] MEDS ORDERED: ALPRAZolam 0.5 MG TABLET PO PRN (09:12)
--- NOTE | 2017-08-02 10:08 | Discharge Summary ---
Date of Encounter: 08/02/17 Time of Encounter: 10:00 - Discharge Diagnosis (1) COPD exacerbation Priority: Primary Status: Acute Comments: acute COPD exacerbation due to acute bacterial bronchitis (2) Hypertensive urgency Priority: Secondary Status: Acute (3) Acute bronchitis Priority: Primary Status: Acute Qualifiers: Bronchitis organism: unspecified organism Qualified Code(s): J20.9 - Acute bronchitis, unspecified (4) CAD (coronary artery disease) Priority: Secondary Status: Chronic Qualifiers: Coronary Disease-Associated Artery/Lesion type: [place] artery [place] vs. transplanted heart: [place] heart Associated angina: angina presence unspecified Qualified Code(s): I25.10 - Atherosclerotic heart disease of [place] coronary artery without angina pectoris (5) History of spontaneous rupture of esophagus Priority: Secondary Status: Resolved (6) CKD (chronic kidney disease) stage 3, GFR 30-59 ml/min Priority: Secondary Status: Acute - Discharge Medications Prescriptions: Furosemide [Lasix] 20 mg PO DAILY #30 tablet Losartan Potassium [Cozaar] 50 mg PO DAILY #30 tab Oxycodone HCl [Roxicodone 30 MG Immed Release] 30 mg PO Q4H PRN #20 tablet PRN Reason: Mild To Moderate Pain predniSONE [PredniSONE] 10 mg PO DAILY 10 Days tablet Home Medications: Aspirin 81 mg PO DAILY 12/15/15 [History] Carvedilol 25 mg PO BID 12/15/15 [History] Citalopram Hydrobromide [Citalopram HBr] 40 mg PO DAILY 12/15/15 [History] Gabapentin [Neurontin] 300 mg PO TID 12/15/15 [History] Pantoprazole Sodium 40 mg PO DAILY 12/15/15 [History] Albuterol Neb [Proventil Neb] 2.5 mg IH TID PRN 04/04/16 [History] Diclofenac Sodium [Voltaren] 2 gm TP AD 09/07/16 [History] Montelukast [Singulair] 10 mg PO DAILY 09/07/16 [History] amLODIPine [Norvasc] 10 mg PO DAILY 09/07/16 [History] Isosorbide MONOnitrate (24 HR) [Imdur] 60 mg PO DAILY #30 tab.er.24h 09/11/16 [ Rx] hydrALAZINE [HydrALAZINE] 50 mg PO TID #180 tablet 09/11/16 [Rx] Naproxen [Naprosyn] 500 mg PO BID PRN #10 tablet 04/16/17 [Rx] Budesonide Neb [Pulmicort Neb] 0.5 mg IH BID 07/28/17 [History] Chlorthalidone 25 mg PO DAILY 07/28/17 [History] Ferrous Gluconate 324 mg PO DAILY 07/28/17 [History] Fluticasone Propionate Nasal [Flonase] 1 spr NS DAILY 07/28/17 [History] Meclizine HCl [Verticalm] 25 mg PO TID 07/28/17 [History] ALPRAZolam [Xanax 0.5 MG Tablet] 0.5 mg PO TID PRN tablet 08/02/17 [Rx] Furosemide [Lasix] 20 mg PO DAILY #30 tablet 08/02/17 [Rx] Losartan Potassium [Cozaar] 50 mg PO DAILY #30 tab 08/02/17 [Rx] Oxycodone HCl [Roxicodone 30 MG Immed Release] 30 mg PO Q4H PRN #20 tablet 08/02 [Rx] predniSONE [PredniSONE] 10 mg PO DAILY 10 Days tablet 08/02/17 [Rx] Allergies/Adverse Reactions: 3 Allergy/AdvReac Type Severity Reaction Status Date / Time tetanus toxoid, adsorbed Allergy Swelling Verified 07/28/17 10:12 of Lip/Tongue/Throat Procedures/tests Complete & Pending: Procedures Performed prior 72 hours Category Date Time Status CT chest wo con [CT] Stat Cat Scan 07/31/17 12:52 Completed Date of admission: 07/27/17 23:42 Primary care physician: Tommie Srivastava, - Patient Status Disposition: Home, Self-Care Condition: Good Overall status at discharge: patient is back to baseline - Discharge Instructions Follow Up With: Tommie Srivastava DO [Primary Care Provider] - 08/10/17 9:00 am Additional Instructions: Follow up with primary care physician within he next 7 days. Follow up with pulmonary service within 2 weeks to follow up on lung nodule. Taper prednisone. Start Losartan to control blood pressure - Diet and Activity Activity: increase activity as tolerated Diet: low fat, low cholesterol Hospital course: Mr. Thrasher is a 76 year old male with a past medical history of asthma, coronary artery disease, hypertension, renal disease (CKD3), other (Depression, Neuropathy, cervical foraminal stenosis especially at C3-4 and C4-5, BPH, diverticulosis, colitis, asthma, HLD) who came to the ER complaining of dificulty breathing for the past week, worse in the past few days prior to admission , having brownish phlegm, chills, CXR did not show any acute finding. BP was 194/80, RR of 36, RONAL not improving at home with nebulizers. Denied sick contacts. Was given Levaquin and solumedrol in the Er. VOMITED ONCE AFTER COUGHING. Has been experiencing left arm pain for the past 6 months. MRI of the cervical spine from May showed multiple levels of cervical foraminal stenosis. The patient's family refused to be admitted to the 2nd floor and threatened to leave to [place] if he would be admitted there. In the end they were given the option to be transferred but the patient agreed to be admitted to this hospital. They mentioned that if something goes wrong they "would nadiya". Possibility of transfer was again discussed as they had a bad experience last time here with the nursing staff in the 2nd floor. I saw the patient on admission but did not follow his care as I was working nights and my job was do do admissions only. He was followed by Arely Sullivan NP the next day and then was seen by Dr Chandler ([facility]) for the next 4 days. I saw him again today and he mentioned he was very displeased with the care here, saying he demanded Lasix a few days ago and no one listened to him. He became aggressive and demanded to be discharged. Said that no one did anything for him, specially give him Lasix. His Echocardiogram showed an EF of 60-65%, Moderate aortic regurgitation, moderate pulmonary hypertension. CT of the chest form 07/31/17 showed : New 1 cm ground-glass left upper lobe pulmonary nodule with central nidus. Dependent reticular and ground-glass opacity bilaterally, with distribution favoring atelectasis. Sequela of granulomatous disease. Atherosclerosis, including coronary artery calcification. Small hiatal hernia. Did not show any pulmonary edema. I apologized to him about all his complaints and asked him if there would be anything I can do to help him ( i saw him only on the day of admission and today ) Also complained of still having a cough and I explained to him that bronchitis takes a few weeks to heal completely. I suspect he is develeping some agitation also due to steroids and will send him on a low dose/taper of prednisone. The patient was given Xanax during this hospitalization. Today, his lungs sound clear, his COPD has improved considerably and there is no evidence of volume overload. He was given the option to stay another day if he does not fell better but he insists on being discharged (he is clinically ready). - Time Spent with Patient Total time spent providing and/or coordinating discharge services: Greater than 30 minutes (40 min) - Constitutional Vitals: Temp Pulse Resp BP Pulse Ox 97.9 F 74 16 166/72 94 08/02/17 07:33 08/02/17 07:33 08/02/17 07:33 08/02/17 07:33 08/02/17 07:33 General appearance: Present: A&O X 3, no acute distress - Head Head exam: Present: atraumatic, normocephalic - Eye Eye exam: Present: PERRL, conjuntiva pink, sclera anicteric Pupils: Present: PERRL - Neck Neck exam general surgery: Present: supple, trachea midline. Absent: lymphadenopathy - Respiratory Respiratory exam: Present: CTAB. Absent: accessory muscle use, rales, rhonchi, wheezes - Cardiovascular Cardiovascular exam: Present: RRR, +S1, +S2. Absent: diastolic murmur, gallop, rubs, systolic murmur - GI/Abdominal GI/Abdominal exam: Present: normal bowel sounds, soft, no peritoneal signs. Absent: distended, tenderness - Extremities Exam Extremities exam: Present: warm, radial pulses palpable and symmetrical. Absent : calf tenderness, cyanotic, pedal edema - Neurological Exam Neurological exam: Present: CN II-XII intact, oriented X3, no focal deficits. Absent: pronater drift, facial droop, speech deficit - Skin Skin exam: Present: dry, intact
[2017-08-02] MEDS: Fluticasone Propionate Nasal 50 MCG/SPRAY BOTTLE NS SCH (11:04)
== END 2017-08-02 12:15 | disposition home or self-care (01) ==
LOC: EMEROO 21:16 → 3BNU 21:16 → SUATTDRO 23:42 → 3BNU 07-28 00:30
PROVIDERS: ADMIT Internal Medicine; ATTEND Internal Medicine